=== PATIENT | female | born 1950 | race Caucasian/White ===

== ENCOUNTER 2017-12-02 16:40 | Observation (INO) | payer MEDICARE ==
[~2017-12-02] VITALS: Ht 162.6 cm; Wt 73.5 kg
--- NOTE | 2017-12-02 18:36 | Diagnostic Imaging Report ---
PROCEDURE: A single AP view of the chest. COMPARISON: None available. INDICATIONS: CHEST PAIN FINDINGS: Lines/tubes: Cardiac monitoring device overlying cardiac shadow. Lungs: The lungs are well inflated and clear. There is no evidence of pneumonia or pulmonary edema. Pleura: There is no pleural effusion or pneumothorax. Heart and mediastinum: The cardiac silhouette is enlarged. Bones: No acute bony abnormality. Partial seen cervical fusion hardware. IMPRESSION: No acute cardiopulmonary disease. Enlarged cardiac silhouette. Dictated by: Mamadou Wan M.D. on 12/02/2017 at 18:42 Electronically approved by: Mamadou Wan M.D. on 12/02/2017 at 18:42
[2017-12-02 18:39] LABS: BILIRUBIN,URINE NEGATIVE (NEGATIVE); CLARITY,URINE SL CLOUDY (CLEAR); COLOR,URINE YELLOW (YELLOW); KETONES,URINE NEGATIVE (NEGATIVE); LEUKOCYTE ESTERASE ,URINE 1+ (NEGATIVE); NITRITE,URINE NEGATIVE (NEGATIVE); PROTEIN,URINE DIPSTICK NEGATIVE (NEGATIVE); URINE UROBILINOGEN 0.2 mg/dL (0.2 - 1)
[2017-12-02 18:47] LABS: BACTERIA,URINE MANY /HPF; EPITHELIAL CELLS,URINE MODERATE /LPF; MUCUS,URINE FEW (RARE); RBC,URINE 0-5 /HPF (0-5)
[2017-12-02 19:09] LABS: BASOPHILS # (AUTO) 0.1 (0.0-0.1); BASOPHILS % 0.6 % (0.0-1.0); EOSINOPHILS # (AUTO) 0.2 (0.0-0.4); EOSINOPHILS % 1.4 % (0.0-6.0); HEMATOCRIT 31.3 % (34.2-44.1); HEMOGLOBIN 9.8 g/dL (12.0-16.0); LYMPHOCYTES # (AUTO) 3.1 (1.0-3.2); LYMPHOCYTES % 24.9 % (18.0-39.1); MEAN CORPUSCULAR HEMOGLOBIN 27.1 pg (28-32); MEAN CORPUSCULAR HGB CONC 31.3 g/dL (31-35); MEAN CORPUSCULAR VOLUME 86.5 fL (81-99); MONOCYTES % 8.5 % (4.4-11.3); NEUTROPHILS # (AUTO) 7.9 (2.1-6.9); NEUTROPHILS % 64.2 % (38.7-80.0); PLATELET COUNT 307 x10e3/uL (140-360); RED BLOOD COUNT 3.62 x10e6/uL (3.6-5.1); RED CELL DISTRIBUTION WIDTH 17.4 % (11.7-14.4)
[2017-12-02 19:19] LABS: INR 2.38; PROTHROMBIN TIME 24.4 seconds (11.9-14.5)
[2017-12-02 19:20] LABS: PARTIAL THROMBOPLASTIN TIME 42.3 seconds (23.8-35.5)
[2017-12-02 19:28] LABS: ALANINE AMINOTRANSFERASE 16 IU/L (0-55); ALBUMIN 3.3 g/dL (3.5-5.0); ALBUMIN/GLOBULIN RATIO 0.9 (0.8-2.0); ALKALINE PHOSPHATASE 119 IU/L (40-150); ANION GAP 14.6 mmol/L (8-16); BLOOD UREA NITROGEN 10 mg/dL (7-26); BUN/CREATININE RATIO 13 (6-25); CALCIUM 8.9 mg/dL (8.4-10.2); CARBON DIOXIDE 26 mmol/L (22-29); CHLORIDE 100 mmol/L (98-107); CREATINE KINASE 54 IU/L (29-168); CREATININE, SERUM 0.78 mg/dL (0.57-1.11); EST GLOMERULAR FILTRATION RATE > 60 ML/MIN (60-); GLUCOSE 83 mg/dL (74-118); POTASSIUM 3.6 mmol/L (3.5-5.1); SODIUM 137 mmol/L (136-145)
[2017-12-02] MEDS ORDERED: ZOLPIDEM TARTRA10 MG PO (20:45)
[2017-12-02] MEDS ORDERED: AMLODIPINE BESYL5 MG PO (20:45)
[2017-12-02] MEDS ORDERED: XARELTO20 MG PO (20:45)
[2017-12-02] MEDS ORDERED: CITALOPRAM HBR20 MG PO (20:45)
[2017-12-02] MEDS ORDERED: POTASSIUM CHLOR8 ME1 PO (20:45)
[2017-12-02] MEDS ORDERED: BUPROPION XL150 MG PO (20:45)
[2017-12-02] MEDS ORDERED: DIGOXIN250 MCG PO (20:45)
[2017-12-02] MEDS ORDERED: TIZANIDINE HCL4 MG PO (20:45)
[2017-12-02] MEDS ORDERED: ONDANSETRON HCL INJ 2 MG/ML VIAL IV PRN (21:30)
[2017-12-02] MEDS ORDERED: SODIUM CHLORIDE 0.9% 1000ML 1,000 ML IV SCH (21:30)
[2017-12-02] MEDS ORDERED: SODIUM CHLORIDE FLUSH 10 ML SYR INJ PRN (21:30)
[2017-12-02] MEDS ORDERED: LORAZEPAM 1 MG TAB PO STA (21:39)
[2017-12-02] MEDS ORDERED: LORAZEPAM 1 MG TAB ONE (21:40)
[2017-12-02] MEDS ORDERED: ZOLPIDEM TARTRATE 10 MG TAB PO PRN (22:15)
[2017-12-02] MEDS ORDERED: PRAMIPEXOLE DI1.5 MG PO (23:07)
[2017-12-02] MEDS ORDERED: PRAMIPEXOLE DIHYDROCHLORIDE 1 MG TAB PO ONE ×2 (23:24→23:30)
[2017-12-02] MEDS ORDERED: TIZANIDINE HCL 4 MG TAB ONE (23:25)
[2017-12-02] MEDS ORDERED: TIZANIDINE HCL 4 MG TAB PO STA (23:31)
[2017-12-02] MEDS: FAMOTIDINE 20 MG/2 ML VIAL IV SCH (23:48)
[2017-12-03] VITALS (9 sets, daily range): BP systolic 121–137; BP diastolic 58–87
[2017-12-03 03:59] LABS: BASOPHILS # (AUTO) 0.1 (0.0-0.1); BASOPHILS % 0.6 % (0.0-1.0); EOSINOPHILS # (AUTO) 0.2 (0.0-0.4); HEMATOCRIT 28.7 % (34.2-44.1); LYMPHOCYTES # (AUTO) 2.9 (1.0-3.2); LYMPHOCYTES % 27.2 % (18.0-39.1); MEAN CORPUSCULAR HGB CONC 31.4 g/dL (31-35); MEAN CORPUSCULAR VOLUME 86.2 fL (81-99); MONOCYTES # (AUTO) 0.9 (0.2-0.8); NEUTROPHILS # (AUTO) 6.5 (2.1-6.9); NEUTROPHILS % 61.8 % (38.7-80.0); PLATELET COUNT 257 x10e3/uL (140-360); RED BLOOD COUNT 3.33 x10e6/uL (3.6-5.1); RED CELL DISTRIBUTION WIDTH 17.3 % (11.7-14.4)
[2017-12-03 04:19] LABS: INR 1.92; PROTHROMBIN TIME 20.6 seconds (11.9-14.5)
[2017-12-03 04:20] LABS: PARTIAL THROMBOPLASTIN TIME 42.3 seconds (23.8-35.5)
[2017-12-03 04:27] LABS: BLOOD UREA NITROGEN 10 mg/dL (7-26); BUN/CREATININE RATIO 14 (6-25); CALCIUM 8.7 mg/dL (8.4-10.2); CARBON DIOXIDE 28 mmol/L (22-29); CHLORIDE 102 mmol/L (98-107); CHOL/HDL RATIO 3.5 (3.0-3.6); CHOLESTEROL 153 MD/DL (0-199); CREATININE, SERUM 0.74 mg/dL (0.57-1.11); EST GLOMERULAR FILTRATION RATE > 60 ML/MIN (60-); GLUCOSE 120 mg/dL (74-118); HDL CHOLESTEROL 44 MG/DL (40-60); LDL CHOLESTEROL 88 MG/DL (60-130); SODIUM 140 mmol/L (136-145); TRIGLYCERIDES 105 MG/DL (0-149)
[2017-12-03 04:29] LABS: CREATINE KINASE 39 IU/L (29-168)
[2017-12-03] MEDS ORDERED: AMLODIPINE BESYLATE 5 MG TAB PO SCH (09:00)
[2017-12-03] MEDS ORDERED: POTASSIUM CHLORIDE 10MEQ EA PO SCH (09:00)
[2017-12-03] MEDS ORDERED: BUPROPION HCL 150 MG TABCR PO SCH (09:00)
[2017-12-03] MEDS: PRAMIPEXOLE DIHYDROCHLORIDE 1 MG TAB PO SCH ×3 (09:00→21:19)
[2017-12-03] MEDS ORDERED: DIGOXIN 0.25 MG TAB PO SCH (09:00)
[2017-12-03] MEDS ORDERED: NON-FORMULARY MEDICATION (Potassium Chloride 1 TAB) PO SCH (09:00)
[2017-12-03] MEDS ORDERED: CITALOPRAM HYDROBROMIDE 20 MG TAB PO SCH (09:00)
[2017-12-03] MEDS ORDERED: POTASSIUM CHLORIDE 20MEQ/100ML 100 ML ONE (09:02)
[2017-12-03] MEDS ORDERED: POTASSIUM CHLORIDE 20 MEQ TAB CR PO ONE (09:05)
[2017-12-03] MEDS ORDERED: POTASSIUM CHLORIDE 20 MEQ TAB CR PO STA (09:13)
[2017-12-03] MEDS ORDERED: POTASSIUM CHLORIDE 20MEQ/100ML 100 ML IV ONE (09:15)
--- NOTE | 2017-12-03 09:28 | History and Physical ---
CHIEF COMPLAINT: Chest pain. HISTORY OF PRESENT ILLNESS: This is a 67-year-old white woman who presented to [facility] Emergency Room with a 1-day history of worsening, nonradiating, left-sided chest pain. The patient also states over the last couple of weeks she has been experiencing worsening generalized weakness as well as extensive tiredness. The patient states she also drops things inadvertently. She is also concerned because her heart rate has been low. In the emergency room, the patient was found to have findings consistent with sick sinus syndrome. The patient has been persistently bradycardic. The patient has a history of atrial fibrillation. In fact, she has undergone atrial ablation twice previously. The patient currently voices no chest pain at this time. Serial cardiac enzymes performed in the emergency room are not consistent with acute myocardial ischemia or infarction. Chest x-ray done in the emergency room revealed enlarged cardiac silhouette, otherwise unremarkable. EKG reveals sinus bradycardia. No acute ischemic changes are appreciated on the EKG. REVIEW OF SYSTEMS GENERAL: The patient states she has lost weight lately unintentionally, but she cannot quantify. No fever or chills. The patient states she does get confused easily. HEENT: No headache. No vision changes. CARDIOVASCULAR: Subjective chest pain as per HPI. Denies any shortness of breath. GI: No nausea, vomiting, diarrhea or constipation. : Denies UTI symptoms. NEUROMUSCULAR: Patient states she has had at least 3 falls in the last year that have resulted in head injuries. PAST MEDICAL HISTORY 1. Atrial fibrillation. 2. Hypertensive heart disease. 3. Therapeutic brain injury, likely. 4. Chronic diastolic congestive heart failure. 5. Restless legs syndrome. 6. Depression. ALLERGIES: NO KNOWN DRUG ALLERGIES. SURGICAL HISTORY 1. Cervical spine surgery. 2. Lumbar spine surgery. 3. Atrial ablation twice. 4. Right ankle open reduction and internal fixation. 5. Cataract surgery. 6. Right-sided benign ovarian tumor resection. 7. Hysterectomy. SOCIAL HISTORY: This woman is a . She lives alone. She is unemployed. No history of tobacco use. She drinks alcohol occasionally. FAMILY HISTORY: Her mother had electrical cardioversion. MEDICATIONS 1. Amlodipine 5 mg daily. 2. Bupropion 150 mg b.i.d. 3. Citalopram 20 mg daily. 4. Digoxin 250 mcg daily. 5. Potassium chloride 8 mEq daily. 6. Pramipexole 1.5 mg t.i.d. 7. Xarelto 20 mg daily. 8. Tizanidine 8 mg each bedtime. 9. Zolpidem 20 mg each bedtime. PHYSICAL EXAMINATION GENERAL: She is awake, alert and fully oriented. She seems to get confused easily. She answers questions slowly. Does not appear to be in any obvious distress. She is very pleasant and cooperative with exam. VITAL SIGNS: Height 5 feet 4 inches, weight 160 pounds, BMI 27. Blood pressure at this time is 120/60. Heart rate is 54. Respiratory rate is 18. Oxygen saturation is 95% on room air. Temperature is 97.9. INTEGUMENT: Skin is warm and dry. No pallor, jaundice or diaphoresis. HEENT: Anicteric sclerae with moist mucous membranes. NECK: Supple. No evidence of jugular venous distention. CARDIOVASCULAR: Bradycardic heart rate. Regular rhythm. The patient has a systolic ejection murmur and S3 gallop. LUNGS: No rales, no rhonchi, no wheezing. ABDOMEN: Obese, benign. EXTREMITIES: No edema or deformity. NEUROLOGIC: Intact. DIAGNOSES 1. Sick sinus syndrome. 2. Bradycardia. 3. History of atrial fibrillation. 4. Hypertensive heart disease. 5. Chronic diastolic congestive heart failure. 6. Traumatic brain injury, likely. PLAN 1. Will consider stopping long-term anticoagulation with cardiology since the patient is extremely high fall risk. 2. Agree with electrophysiology and cardiology evaluation since this patient would likely benefit from a permanent pacemaker placement due to her sick sinus syndrome. 3. Order 2-D echocardiogram. 4. Will replete the patient's potassium level. 5. Follow electrolytes. 6. Stop intravenous fluids. I spent an hour in the care of this patient. Job#: [id number]
[2017-12-03] MEDS: FAMOTIDINE 20 MG/2 ML VIAL IV SCH ×2 (09:30→17:17)
[2017-12-03] MEDS ORDERED: MIDAZOLAM HCL 2 MG/2 ML VIAL ONE ×3 (10:04→11:17)
[2017-12-03] MEDS ORDERED: SODIUM CHLORIDE 0.9% 1000ML 2,000 ML ONE (10:05)
[2017-12-03] MEDS ORDERED: FENTANYL CITRATE/PF 100MCG/2 ML INJ ONE ×2 (10:05→10:33)
[2017-12-03] MEDS ORDERED: BACITRACIN 50,000 UNIT VIAL ONE (10:05)
[2017-12-03] MEDS ORDERED: LIDOCAINE HCL 2% LOCAL 20 ML VIAL ONE (10:05)
[2017-12-03] MEDS ORDERED: SODIUM CHLORIDE 0.9% 500ML 500 ML ONE (10:05)
[2017-12-03] MEDS ORDERED: VANCOMYCIN 1GM/NS 250 ML 250 ML ONE (10:12)
[2017-12-03] MEDS: MORPHINE SULFATE 2 MG/ML SYR IV PRN (15:30)
--- NOTE | 2017-12-03 15:36 | Diagnostic Imaging Report ---
PROCEDURE: A single AP view of the chest. COMPARISON: Patients [facility], , CHEST SINGLE (NOT PORTABLE), 12/02/2017, 18:05. INDICATIONS: POST PACEMAKER FINDINGS: See impression. IMPRESSION: 1. interval placement of left upper chest dual-lead cardiac device with lead distal tips projecting in the right atrium and right ventricle. 2. Stable enlargement of the cardiac silhouette. Interval development of central pulmonary venous congestion and bilateral perihilar interstitial edema. No effusion or consolidation. 3. No acute bony abnormalities. Renard Sterling M.D. Dictated by: Renard Sterling M.D. on 12/03/2017 at 15:41 Electronically approved by: Renard Sterling M.D. on 12/03/2017 at 15:41
[2017-12-03] MEDS ORDERED: KETOROLAC TROMETHAMINE 30 MG/ML VIAL IV NR (16:45)
[2017-12-03] MEDS: HYDROMORPHONE 1MG/1ML INJ IV PRN (16:54)
[2017-12-03] MEDS ORDERED: ONDANSETRON HCL INJ 2 MG/ML VIAL IV PRN (17:00)
[2017-12-03] MEDS ORDERED: SODIUM CHLORIDE FLUSH 10 ML SYR INJ PRN (17:00)
[2017-12-03] MEDS ORDERED: ZOLPIDEM TARTRATE 10 MG TAB PO PRN (17:00)
[2017-12-03] MEDS: BUPROPION HCL 150 MG TABCR PO SCH (17:17)
--- NOTE | 2017-12-03 20:26 | Consultation ---
DATE OF CONSULTATION: December 03, 2017 CARDIOLOGY CONSULTATION REASON FOR CONSULTATION: Sick sinus syndrome, bradycardia. CHIEF COMPLAINT: I have been feeling dizzy and weak, and they told me to come in for a pacemaker. HISTORY OF PRESENT ILLNESS: Patient is a 67-year-old female with a history of atrial fibrillation on anticoagulation and sick sinus syndrome with sinus pauses and bradycardia when she is not in atrial fibrillation who presents to the ER with weakness and bradycardia and underwent permanent pacemaker placement by Dr. Grimm earlier today without any complications. REVIEW OF SYSTEMS: As above, otherwise negative. PAST MEDICAL HISTORY: 1. Paroxysmal atrial fibrillation. 2. Sick sinus syndrome. 3. Hypertension. 4. Chronic diastolic congestive heart failure. 5. Restless leg syndrome. 6. Depression. 7. History of traumatic brain injury. ALLERGIES: NO KNOWN DRUG ALLERGIES. SOCIAL HISTORY: No tobacco, alcohol or drug use. FAMILY HISTORY: History of cardioversion in mother. No family history of early CAD or sudden cardiac . Outpatient and inpatient medications were reviewed. LABORATORY DATA: Reviewed. IMAGING DATA: Reviewed. PHYSICAL EXAMINATION: VITALS: Temperature 98.4, pulse 60, respiratory rate 17, blood pressure 135/87, satting 94% on room air. EYES: Conjunctivae are clear. EARS, NOSE, MOUTH AND THROAT: Normal mucosa, no pallor or bleeding. NECK: No jugular venous distention. MSK: Normal muscle tone and strength. No atrophy. EXTREMITIES: No clubbing or cyanosis. SKIN: Some mild bruising at places, otherwise no venostasis changes or ulcers. GENERAL: Well-developed, elderly female. CARDIOVASCULAR: PMI nondisplaced. Regular S1 S2. No murmurs, rubs or gallops. Palpable carotid pulses, palpable radial pulses, palpable pedal pulses. RESPIRATORY: No respiratory distress. Clear to auscultation bilaterally. ABDOMEN: Soft, nontender nondistended. No masses. NEURO AND PSYCH: Alert and oriented to person, place and time. Normal affect. ASSESSMENT 1. Paroxysmal atrial fibrillation, status post ablation x2. 2. Sick sinus syndrome. 3. Symptomatic bradycardia. 4. Status post dual-chamber pacemaker placement on 12/03/2017. PLAN: Usual post pacemaker care. The patient okay to be discharged tomorrow if device interrogation shows normal function and no complications of device placement. Will resume her anticoagulation for now. Will have a discussion with patient regarding possibly being referred for Watchman device given her propensity to fall though the only major traumatic fall she has had in the past was due to falling off a ladder from missing a step and not during her every day life. This was over five years ago before she was on anticoagulation. Thank you for this consult. Will continue to follow. Job#: [id number] ANDREY
[2017-12-03] MEDS ORDERED: TIZANIDINE HCL 4 MG TAB PO SCH ×2 (21:00)
--- NOTE | 2017-12-04 00:24 | Consultation ---
DATE OF CONSULTATION: December 03, 2017 REASON FOR CONSULTATION: Bradycardia. HISTORY OF PRESENT ILLNESS: This is a 67-year-old woman with history of atrial fibrillation, status post ablation procedure, history of dizziness. She had a loop recorder that was implanted to monitor her heart rate which demonstrates episodes of atrial fibrillation with rapid ventricular response, intermittently with episodes of bradycardia, heart rate in the 40s. She has been feeling very weak lately and the heart rate has been in the 40s. She was at the cardiology office and was sent to the ER for consideration of a pacemaker. The patient denies taking any AV node blocking agents. At this time, she is taking Xarelto. The last dose was 48 hours ago. No syncope, no cardiac arrest, no chest pain. REVIEW OF SYSTEMS: CONSTITUTIONAL: Negative. CARDIOVASCULAR: As per HPI, otherwise negative. RESPIRATORY: Negative. GASTROINTESTINAL: Negative. GENITOURINARY: Negative. MUSCULOSKELETAL: Negative. EYES: Negative. ENT: Negative. ALLERGY/IMMUNOLOGY: Negative. PSYCHIATRIC: Negative. PAST MEDICAL HISTORY: Hypertension, atrial fibrillation. SURGICAL HISTORY: Ablation procedures. SOCIAL HISTORY: No smoking, alcohol or illicit drugs. FAMILY HISTORY: No premature coronary artery disease. PHYSICAL EXAMINATION: VITAL SIGNS: Blood pressure 126/60, pulse 48, respirations 20, O2 sat 98%. GENERAL: In no acute distress. HEENT: Moist mucous membranes. CARDIOVASCULAR: Regular. RESPIRATORY: Clear. ABDOMEN: Soft, nontender. MUSCULOSKELETAL: 2+ distal pulses. NEUROLOGICAL: No focal deficit. SKIN: No lesions. PSYCHIATRIC: Normal thought process. EKG: Sinus bradycardia. Interrogation of her loop recorder demonstrates episodes of bradycardia, heart rate in the 40s and episodes of atrial fibrillation with rapid ventricular response that could relate with dizziness. IMPRESSION: 1. Sick sinus syndrome, the patient with symptomatic bradycardia and also episodes of atrial fibrillation with rapid ventricular response. No reversible causes. Unable to treat medically. 2. Loop recorder in place. RECOMMENDATIONS: I had a discussion with the patient. She has indication for pacing. Procedure was explained in detail with benefits and risks. The patient voices understanding and wishes to proceed. Will plan for a dual chamber pacemaker placement and removal of the loop recorder. Thank you for letting us participate [facility]. Job#: [id number]
--- NOTE | 2017-12-04 00:44 | Operative Report ---
DATE OF PROCEDURE: December 03, 2017 PREPROCEDURE DIAGNOSES 1. Sick sinus syndrome. 2. Symptomatic bradycardia with dizziness and bradycardia, heart rate in the 40s. 3. Paroxysmal atrial fibrillation. POSTPROCEDURE DIAGNOSES 1. Sick sinus syndrome. 2. Symptomatic bradycardia with dizziness and bradycardia, heart rate in the 40s. 3. Paroxysmal atrial fibrillation. PROCEDURES PERFORMED 1. Dual-chamber pacemaker placement. 2. Removal of a loop recorder. 3. Moderate sedation. Moderate conscious sedation was provided under my direct supervision by sedation-trained nurse. Sedation approximate time 30 minutes, Versed and fentanyl. There were no complications. See sedation form for details. ESTIMATED BLOOD LOSS: 5 mL. COMPLICATIONS: None. DESCRIPTION OF PROCEDURE: After informed consent was obtained, patient was brought to the electrophysiology laboratory in a fasting, nonsedated state. Area over her chest was prepped and draped in the usual sterile fashion. Moderate sedation and prophylactic antibiotic were given. Lidocaine 1% was used as local anesthetic, and a 3-cm skin incision was made in the left subclavicular area. Electrocautery, sharp and blunt dissection were used to reach the muscular fascia and a pocket was created for eventual implantation of the device. Vascular access was obtained times 2 in the left axillary vein using modified Seldinger technique under fluoroscopic and ultrasound guidance. Two 6-Belarusian sheaths were placed. The ventricular lead advanced to the RV apex. R-wave 5, pacing 0.5 at 0.5, impedance 684. The atrial lead to the right atrial appendage. P-wave 2.9, pacing 0.7 at 0.5, impedance 742. The sheaths were removed from the body. The leads were secured to fascia using 0 silk. Pocket was irrigated with antibiotic solution using a pulse plastic sewer. Hemostasis was meticulous. Leads were connected to the device. The entire pacemaker system placed in the pocket. Incision was closed using Vicryl and Dermabond. Patient tolerated the procedure well. Procedure was deemed complete. SUMMARY OF HARDWARE IMPLANTED 1. The new pacemaker is [employer], model #L311, [id number]. 2. The right atrial is [employer] 7740, [id number]. 3. The ventricular lead is [employer] 7741, [id number]. We then proceeded with removing the loop recorder. The area was prepped and draped in usual sterile fashion. Lidocaine was used. A 1-cm skin incision was made and the loop recorder was removed from the body using hemostat. The incision was closed using Vicryl and Dermabond. Patient tolerated the procedure well. Procedure was deemed complete. IMPRESSIONS 1. Successful dual-chamber pacemaker implant via left axillary vein. 2. Successful removal of the loop recorder. PLAN 1. Routine postop monitoring in telemetry bed. 2. Chest x-ray. 3. Follow up in 2 weeks. Job#: [id number]
[2017-12-04 00:50] VITALS: BP 122/60
[2017-12-04] MEDS: FAMOTIDINE 20 MG/2 ML VIAL IV SCH (05:00)
[2017-12-04 05:06] VITALS: BP 98/57
[2017-12-04 07:00] VITALS: BP 143/65
[2017-12-04 08:12] LABS: BASOPHILS % 0.3 % (0.0-1.0); EOSINOPHILS # (AUTO) 0.2 (0.0-0.4); EOSINOPHILS % 1.5 % (0.0-6.0); HEMATOCRIT 28.9 % (34.2-44.1); HEMOGLOBIN 9.2 g/dL (12.0-16.0); LYMPHOCYTES # (AUTO) 2.3 (1.0-3.2); LYMPHOCYTES % 20.2 % (18.0-39.1); MEAN CORPUSCULAR HEMOGLOBIN 27.2 pg (28-32); MEAN CORPUSCULAR HGB CONC 31.8 g/dL (31-35); MEAN CORPUSCULAR VOLUME 85.5 fL (81-99); MONOCYTES # (AUTO) 0.8 (0.2-0.8); MONOCYTES % 6.9 % (4.4-11.3); NEUTROPHILS # (AUTO) 8.2 (2.1-6.9); NEUTROPHILS % 70.8 % (38.7-80.0); PLATELET COUNT 258 x10e3/uL (140-360); RED BLOOD COUNT 3.38 x10e6/uL (3.6-5.1); RED CELL DISTRIBUTION WIDTH 17.7 % (11.7-14.4)
[2017-12-04] MEDS: BUPROPION HCL 150 MG TABCR PO SCH (08:23)
[2017-12-04 08:29] LABS: BLOOD UREA NITROGEN 14 mg/dL (7-26); BUN/CREATININE RATIO 18 (6-25); CALCIUM 8.7 mg/dL (8.4-10.2); CARBON DIOXIDE 24 mmol/L (22-29); CHLORIDE 106 mmol/L (98-107); EST GLOMERULAR FILTRATION RATE > 60 ML/MIN (60-); GLUCOSE 88 mg/dL (74-118); SODIUM 138 mmol/L (136-145)
[2017-12-04] MEDS: PRAMIPEXOLE DIHYDROCHLORIDE 1 MG TAB PO SCH (08:33)
[2017-12-04] MEDS: MORPHINE SULFATE 2 MG/ML SYR IV PRN (08:33)
[2017-12-04 08:37] VITALS: BP 143/65
[2017-12-04] MEDS ORDERED: DIGOXIN 0.25 MG TAB PO SCH (09:00)
[2017-12-04] MEDS ORDERED: POTASSIUM CHLORIDE 10MEQ EA PO SCH (09:00)
[2017-12-04] MEDS ORDERED: CITALOPRAM HYDROBROMIDE 20 MG TAB PO SCH (09:00)
[2017-12-04] MEDS ORDERED: AMLODIPINE BESYLATE 5 MG TAB PO SCH (09:00)
[2017-12-04] MEDS: HYDROMORPHONE 1MG/1ML INJ IV PRN (10:23)
--- NOTE | 2017-12-04 11:11 | Progress Note ---
DATE: December 04, 2017 CARDIOLOGY PROGRESS NOTE SUBJECTIVE: No major events overnight. Has some soreness over the pacemaker site. Had normal interrogation today. Otherwise, no significant complaints. REVIEW OF SYSTEMS: As above, otherwise negative. OBJECTIVE VITAL SIGNS: Temperature 97.9, pulse 68, respiratory rate 17, blood pressure 143/65, satting 98% on room air. GENERAL: Well-developed white female. CARDIOVASCULAR: Regular rate and rhythm. No murmurs, rubs or gallops. Palpable carotid pulses. Palpable radial pulses. Palpable pedal pulses. RESPIRATORY: No respiratory distress. Lungs are clear to auscultation bilaterally. ABDOMEN: Soft, nontender nondistended. No masses. NEURO AND PSYCH: Alert and oriented to person, place and time. Normal affect. ASSESSMENT 1. Paroxysmal atrial fibrillation, status post ablation x2. 2. Sick sinus syndrome, status post dual-chamber permanent pacemaker on 12/03/2017. 3. Symptomatic bradycardia. 4. Presyncope and history of falls. PLAN: Continue usual postpacemaker care. Follow up with Dr. Grimm in clinic in 2 weeks. Minocycline 100 mg q.12 h. for 7 days. Follow up with us in clinic in the next 4 weeks. Continue her previous cardiovascular medications including Xarelto. Thank you for this consult. Job#: [id number]
[2017-12-04 12:31] VITALS: BP 137/65
[2017-12-04] MEDS ORDERED: FAMOTIDINE 20 MG TAB PO SCH (16:30)
--- NOTE | 2017-12-11 10:36 | Discharge Summary ---
ADMIT DIAGNOSES 1. Sick sinus syndrome. 2. Bradycardia. 3. History of atrial fibrillation. 4. Hypertensive heart disease. 5. Chronic diastolic congestive heart failure. 6. Traumatic brain injury, likely. DISCHARGE DIAGNOSES 1. Status post dual chamber pacemaker placement. 2. Status post removal of loop recorder. 3. Paroxysmal atrial fibrillation. 4. Diastolic heart failure. 5. Presyncope and history of falls. HOSPITAL COURSE: This is a 67-year-old white woman who was admitted to [facility] with the diagnosis of presyncope symptoms with a history of recurrent falls. The patient also has a history of paroxysmal atrial fibrillation. During this hospitalization, the patient was found to have symptomatic bradycardia with heart rate in the 40s. She was also diagnosed with sick sinus syndrome. The patient was seen by cardiology, namely Dr. Claude Cortés. During this hospitalization, she was also seen by an electrophysiology cardiology, namely Dr. Grimm, who successfully placed a dual chamber pacemaker and removed her loop recorder. Her loop recorder had detected heart rates as low as 38 beats per minute. As previously stated, the patient had repeated falls due to presyncope likely secondary to the bradycardia. The patient tolerated the procedure quite well. Her condition on discharge was stable. DISCHARGE MEDICATIONS 1. Minocycline 500 mg p.o. b.i.d. for 7 days. 2. Amlodipine 5 mg a day. 3. Bupropion 150 mg b.i.d. 4. Citalopram 20 mg daily. 5. Digoxin 250 mcg daily. 6. Potassium chloride 8 mEq daily. 7. Pramipexole 1.5 mg t.i.d. 8. Xarelto 20 mg daily. 9. Tizanidine 8 mg at bedtime. 10. Zolpidem 20 mg at bedtime. FOLLOWUP INSTRUCTIONS: The patient was instructed to follow up with Dr. Claude Cortés within 1 week. The patient was instructed to follow up with her primary care physician, namely Dr. Zen Galvez, in 2-3 weeks. The patient was also instructed to follow up with Dr. Grimm within the next 1-2 weeks. JACKY KINSEY MD Job#: [id number] RI cc:Lencho MACK MD
--- OUTSIDE RECORDS SUMMARY | 2018-01-29 23:56 | XMS REPORT ---
[facility] Address Unknown Phone Unavailable Care Team Providers Care Research Worker Kitchen Name Role Phone ANTONI NEWSOME Unavailable Unavailable Payers Payer Name Policy Type Policy Number Effective Date Expiration Date Problems This patient has no known problems. Allergies, Adverse Reactions, Alerts Allergy Name Allergy Type Status Severity Reaction(s) Onset Date Inactive Date Treating Clinician Comments No Known Allergies DA Active U 2017-11-21 00:00:00 Medications This patient has no known medications. Results Test Description Test Time Test Comments Text Results Atomic Results Result Comments CHEST SINGLE (PORTABLE) 2017-12-03 15:41:00 [place] [address] Patient Name: VIOLETA DORAN MR #: [id number] : 1950 Age/Sex: 67/F Req #: [id number] Adm Physician: ANTONI NEWSOME MD Ordered by: JACKY KINSEY MD Report #: [id number] Location: [facility] Room/Bed: [place] [address] Procedure: [id number] DX/CHEST SINGLE ( PORTABLE) Exam Date: 12/03/17 Exam Time: 1320 REPORT STATUS: Signed PROCEDURE: A single AP view of the chest. COMPARISON: [facility], DX, CHEST SINGLE (NOT PORTABLE), 2017, 18:05. INDICATIONS: POST PACEMAKER FINDINGS: See impression. IMPRESSION: 1. interval placement of left upper chest dual-lead cardiac device with lead distal tips projecting in the right atrium and right ventricle. 2. Stable enlargement of the cardiac silhouette. Interval development of central pulmonary venous congestion and bilateral perihilar interstitial edema. No effusion or consolidation. 3. No acute bony abnormalities. Gabriel Sterling M.D. Dictated by: Gabriel Sterling M.D. on 12/03/2017 at 15:41 Electronically approved by: Gabriel Sterling M.D. on 12/03/2017 at 15:41 Dictated By: GABRIEL STERLING MD 154 Transcribed By: GRACE on 12/03/17 154 COPY TO: JACKY KINSEY MD CHEST SINGLE (NOT PORTABLE) 2017-12-02 18:42:00 [place] [address] Patient Name: VIOLETA DORAN MR #: [id number] : 1950 Age/Sex: 67/F Req #: [id number] Adm Physician: Ordered by: EMERALD ARREDONDO MD Report #: [id number] Location: ER Room/Bed: Procedure: [id number] DX/CHEST SINGLE (NOT PORTABLE) Exam Date: 12/02/17 Exam Time: 1805 REPORT STATUS: Signed PROCEDURE: A single AP view of the chest. COMPARISON: None available. INDICATIONS: CHEST PAIN FINDINGS: Lines/tubes: Cardiac monitoring device overlying cardiac shadow. Lungs: The lungs are well inflated and clear. There is no evidence of pneumonia or pulmonary edema. Pleura: There is no pleural effusion or pneumothorax. Heart and mediastinum: The cardiac silhouette is enlarged. Bones: No acute bony abnormality. Partial seen cervical fusion hardware. IMPRESSION: No acute cardiopulmonary disease. Enlarged cardiac silhouette. Dictated by: Mamadou Mike M.D. on 12/02/2017 at 18:42 Electronically approved by: Mamadou Mike M.D. on 12/02/2017 at 18:42 Dictated By: MAMADOU MIKE MD 41 COPY TO: EMERALD ARREDONDO MD
--- OUTSIDE RECORDS SUMMARY | 2018-01-30 00:02 | XMS REPORT | Continuity of Care Document ---
Author Author [facility] Organization [facility] Address [address] [place] [address] Phone Unavailable Care Team Providers Care Telex Operator Name Role Phone CHRIS FONTANA MD PCP Insurance Providers Guarantor Violeta Huff [address] [place] [address] Email [email or web address] Medicare Complete Policy Number [id number] Subscriber's Name Violeta Huff Relationship 18 Self / Same As Patient Group Number [id number] Effective Date 14 Advance Directives Directive Response Recorded Date/Time Does the patient have an advance directive? No 03/05/08 12:56pm If yes, is advance directive on file with [facility]? No 03/05/08 12:56pm If not on file with [facility] will patient provide a copy? No 06/16/12 9:51pm Do you have a Directive to Physician? No 12/02/17 8:48pm Do you have a Medical Power of Chin Strap Maker? No 12/02/17 8:48pm Do you have an out of hospital Do Not Resuscitate Order? No 12/02/17 8:48pm Do you have any special needs we should be aware of? No 12/02/17 8:48pm Do you have a support person here with you today? Yes 12/02/17 8:48pm Did patient receive Notice of Privacy Practices? Yes 12/02/17 8:48pm Did patient receive patient rights and responsibilities? Yes 12/02/17 8:48pm Problems Medical Problem Onset Date Status Bradycardia Unknown Chest pain Unknown Sick sinus syndrome Unknown Medications Current Home Medications Medication Dose Units Route Directions Days Qty Instructions Start Date Amlodipine Besylate 5 Mg Tablet 5 Mg Oral Daily 30 Bupropion Hcl (Bupropion Xl) 150 Mg Tab.er.24h 150 Mg Oral Twice A Day 180 Citalopram Hydrobromide (Citalopram Hbr) 20 Mg Tablet 20 Mg Oral Daily 30 Digoxin 250 Mcg Tablet 250 Mcg Oral Daily 30 Potassium Chloride 8 Meq Tablet.er 8 Meq Oral Daily 90 Pramipexole Di-Hcl (Pramipexole Dihydrochloride) 1.5 Mg Tablet 1.5 Mg Oral Three Times A Day 90 Rivaroxaban (Xarelto) 20 Mg Tablet 20 Mg Oral Daily Tizanidine Hcl 4 Mg Tablet 8 Mg Oral Bedtime 60 Zolpidem Tartrate 10 Mg Tablet 10 Tab Oral Bedtime as needed for Sleep 90 Social History Smoking Status Start Date Stop Date Never Smoker Hospital Discharge Instructions No hospital discharge instruction information available. Plan of Care Discharge Date 12/03/17 12:58pm Prescriptions See Medication Section Functional Status No functional status information available. Allergies, Adverse Reactions, Alerts Allergen Type Severity Reaction Status Last Updated No Known Drug Allergies Allergy Unknown Active 12/02/17 Immunizations No immunization information available. Vital Signs Acute Vital Signs Vital Response Date/Time Pulse Pulse Rate (adult) 60 bpm (60 - 90) 12/03/2017 12:37pm Respiratory Rate 16 bpm (12 - 24) 12/03/2017 12:37pm Blood Pressure 133/67 mm Hg 12/03/2017 12:37pm Height 5 ft 4 in 12/02/2017 5:21pm Weight 162 lb 12/02/2017 5:21pm Body Mass Index 27.8 kg/m^2 12/02/2017 5:21pm Results Laboratory Results Test Name Result Units Flags Reference Collection Date/Time Result Date/ Time Comments White Blood Count 10.56 x10e3/uL 4.8-10.8 12/03/2017 3:45am 12/03/2017 4:07am Red Blood Count 3.33 x10e6/uL L 3.6-5.1 12/03/2017 3:45am 12/03/2017 4: 07am Hemoglobin 9.0 g/dL L 12.0-16.0 12/03/2017 3:45am 12/03/2017 4:07am Hematocrit 28.7 % L 34.2-44.1 12/03/2017 3:45am 12/03/2017 4:07am Mean Corpuscular Volume 86.2 fL 81-99 12/03/2017 3:45am 12/03/2017 4: 07am Mean Corpuscular Hemoglobin 27.0 pg L 28-32 12/03/2017 3:45am 2017 4:07am Mean Corpuscular Hemoglobin Concent 31.4 g/dL 31-35 12/03/2017 3:45am 12/03/2017 4:07am Red Cell Distribution Width 17.3 % H 11.7-14.4 12/03/2017 3:45am 2017 4:07am Platelet Count 257 x10e3/uL 140-360 12/03/2017 3:45am 12/03/2017 4: 07am Neutrophils (%) (Auto) 61.8 % 38.7-80.0 12/03/2017 3:45am 12/03/2017 4: 07am Lymphocytes (%) (Auto) 27.2 % 18.0-39.1 12/03/2017 3:45am 12/03/2017 4: 07am Monocytes (%) (Auto) 8.0 % 4.4-11.3 12/03/2017 3:45am 12/03/2017 4: 07am Eosinophils (%) (Auto) 2.0 % 0.0-6.0 12/03/2017 3:45am 12/03/2017 4: 07am Basophils (%) (Auto) 0.6 % 0.0-1.0 12/03/2017 3:45am 12/03/2017 4:07am IM GRANULOCYTES % 0.4 % 0.0-1.0 12/03/2017 3:45am 12/03/2017 4:07am Neutrophils # (Auto) 6.5 2.1-6.9 12/03/2017 3:45am 12/03/2017 4:07am Lymphocytes # (Auto) 2.9 1.0-3.2 12/03/2017 3:45am 12/03/2017 4:07am Monocytes # (Auto) 0.9 H 0.2-0.8 12/03/2017 3:45am 12/03/2017 4:07am Eosinophils # (Auto) 0.2 0.0-0.4 12/03/2017 3:45am 12/03/2017 4:07am Basophils # (Auto) 0.1 0.0-0.1 12/03/2017 3:45am 12/03/2017 4:07am Absolute Immature Granulocyte (auto 0.04 x10e3/uL 0-0.1 12/03/2017 3: 45am 12/03/2017 4:07am Prothrombin Time 20.6 seconds H 11.9-14.5 12/03/2017 3:45am 12/03/2017 4 :37am Prothromb Time International Ratio 1.92 12/03/2017 3:45am 2017 4:37am Oral Anticoagulant Therapy INR Values: 1. Low Intensity Therapy 1.5 - 2.0 2. Moderate Intensity Therapy 2.0 - 3.0 3. High Intensity Therapy(1) 2.5 - 3.5 4. High Intensity Therapy(2) 3.0 - 4.0 5. Panic Value INR > 5.0 Activated Partial Thromboplast Time 42.3 seconds H 23.8-35.5 12/03/2017 3 :45am 12/03/2017 4:37am Urine Color YELLOW YELLOW 12/02/2017 5:32pm 12/02/2017 6:39pm Urine Clarity SL CLOUDY CLEAR 12/02/2017 5:32pm 12/02/2017 6:39pm Urine Specific Allons 1.020 1.010-1.025 12/02/2017 5:32pm 2017 6:39pm Urine pH 6 5 - 7 12/02/2017 5:32pm 12/02/2017 6:39pm Urine Leukocyte Esterase 1+ H NEGATIVE 12/02/2017 5:32pm 12/02/2017 6: 39pm Urine Nitrite NEGATIVE NEGATIVE 12/02/2017 5:32pm 12/02/2017 6:39pm Urine Protein NEGATIVE NEGATIVE 12/02/2017 5:32pm 12/02/2017 6:39pm Urine Glucose (UA) NEGATIVE NEGATIVE 12/02/2017 5:32pm 12/02/2017 6: 39pm Urine Ketones NEGATIVE NEGATIVE 12/02/2017 5:32pm 12/02/2017 6:39pm Urine Urobilinogen 0.2 mg/dL 0.2 - 1 12/02/2017 5:32pm 12/02/2017 6: 39pm Urine Bilirubin NEGATIVE NEGATIVE 12/02/2017 5:32pm 12/02/2017 6: 39pm Urine Blood NEGATIVE NEGATIVE 12/02/2017 5:32pm 12/02/2017 6:39pm Urine WBC 6-10 /HPF H 0-5 12/02/2017 5:32pm 12/02/2017 6:47pm Urine RBC 0-5 /HPF 0-5 12/02/2017 5:32pm 12/02/2017 6:47pm Urine Bacteria MANY /HPF H NONE 12/02/2017 5:32pm 12/02/2017 6:47pm Urine Epithelial Cells MODERATE /LPF NONE 12/02/2017 5:32pm 12/02/2017 6:47pm Urine Mucus FEW H RARE 12/02/2017 5:32pm 12/02/2017 6:47pm Sodium Level 140 mmol/L 136-145 12/03/2017 3:45am 12/03/2017 4:37am Potassium Level 3.0 mmol/L L 3.5-5.1 12/03/2017 3:45am 12/03/2017 4: 37am Chloride Level 102 mmol/L 98-107 12/03/2017 3:45am 12/03/2017 4:37am Carbon Dioxide Level 28 mmol/L 22-12/03/2017 3:45am 12/03/2017 4: 37am Anion Gap 13.0 mmol/L 8-16 12/03/2017 3:45am 12/03/2017 4:37am Blood Urea Nitrogen 10 mg/dL 11-2112/03/2017 3:45am 12/03/2017 4:37am Creatinine 0.74 mg/dL 0.57-1.11 12/03/2017 3:45am 12/03/2017 4:37am BUN/Creatinine Ratio 14 6-25 12/03/2017 3:45am 12/03/2017 4:37am Estimat Glomerular Filtration Rate > 60 ML/MIN 60- 12/03/2017 3:45am 4:37am Ranges were taken from the National Kidney Disease Education Program and the National Kid[employer] Foundation literature. Reference ranges: 60 or greater: Normal 16-59 (for 3 consecutive months): Chronic kidney disease 15 or less: Kidney failure Glucose Level 120 mg/dL H 74-118 12/03/2017 3:45am 12/03/2017 4:37am Calcium Level 8.7 mg/dL 8.4-10.2 12/03/2017 3:45am 12/03/2017 4:37am Total Bilirubin 0.4 mg/dL 0.2-1.2 12/02/2017 6:46pm 12/02/2017 7:29pm Aspartate Amino Transf (AST/SGOT) 26 IU/L 5-34 12/02/2017 6:46pm 2017 7:29pm Alanine Aminotransferase (ALT/SGPT) 16 IU/L 0-55 12/02/2017 6:46pm 09/2017 7:29pm Total Protein 6.8 g/dL 6.5-8.1 12/02/2017 6:46pm 12/02/2017 7:29pm Albumin 3.3 g/dL L 3.5-5.0 12/02/2017 6:46pm 12/02/2017 7:29pm Globulin 3.5 g/dL 2.3-3.5 12/02/2017 6:46pm 12/02/2017 7:29pm Albumin/Globulin Ratio 0.9 0.8-2.0 12/02/2017 6:46pm 12/02/2017 7: 29pm Alkaline Phosphatase 119 IU/L 40-150 12/02/2017 6:46pm 12/02/2017 7: 29pm Triglycerides Level 105 MG/DL 0-149 12/03/2017 3:45am 12/03/2017 4: 37am Cholesterol Level 153 MD/DL 0-199 12/03/2017 3:45am 12/03/2017 4:37am Less than 200 mg/dL Low Risk 201 - 239 mg/dL Borderline Risk 240 mg/dl and greater High Risk LDL Cholesterol 88 MG/DL 60-130 12/03/2017 3:45am 12/03/2017 4:37am HDL Cholesterol 44 MG/DL 40-60 12/03/2017 3:45am 12/03/2017 4:37am Cholesterol/HDL Ratio 3.5 3.0-3.6 12/03/2017 3:45am 12/03/2017 4: 37am B-Type Natriuretic Peptide 219.2 pg/mL H 0-100 12/02/2017 6:46pm 2017 7:31pm Creatine Kinase 39 IU/L 29-168 12/03/2017 3:45am 12/03/2017 4:37am Creatine Kinase MB 0.50 ng/mL 0-5.0 12/03/2017 3:45am 12/03/2017 4: 37am Troponin I < 0.001 ng/mL 0-0.300 12/03/2017 3:45am 12/03/2017 4:37am Thyroid Stimulating Hormone (TSH) 1.599 uIU/mL 0.350-4.940 12/03/2017 3: 35am 12/03/2017 9:39am Digoxin Level 1.06 ng/mL 0.8-2.0 12/02/2017 6:46pm 12/02/2017 10:32pm Procedures Procedure Status Date Provider(s) X-ray of chest, single view Active 12/02/17 EMERALD ARREDONDO MD Encounters Encounter Location Arrival/Admit Date Discharge/Depart Date Attending Provider Departed [facility] 12/03/17 10:02am 12:58pm ANTONI NEWSOME MD
[2018-04-24] MEDS ORDERED: METOPROLOL SUCC50 MG PO (13:57)
[2018-04-24] MEDS ORDERED: FUROSEMIDE40 MG PO (13:59)
[2018-04-24] MEDS ORDERED: ASPIR 8181 MG PO (14:00)
[2018-04-28] MEDS ORDERED: NORCO 7.5-3251 EACH PO (08:57)
== END 2017-12-04 14:35 | disposition home or self-care (01) ==
LOC: ER 16:40 → UNDOADMIN 21:35 → ERHOLD 21:35 → CATH LAB 12-03 10:02 → IMCU 12-03 13:20 → UNDOADMOB 12-03 13:37
PROVIDERS: ADMIT Internal Medicine Interventional Cardiology; ATTEND Internal Medicine Interventional Cardiology
DX: I49.5 Sick sinus syndrome (principal); R07.9 Chest pain, unspecified; I48.0 Paroxysmal atrial fibrillation; I11.0 Hypertensive heart disease with heart failure; I50.32 Chronic diastolic (congestive) heart failure; G25.81 Restless legs syndrome; Z87.820 Personal history of traumatic brain injury; Z79.01 Long term (current) use of anticoagulants; R55 Syncope and collapse; Z91.81 History of falling
CPT/HCPCS: 33208; 33284; C1785; C1898; 36415; 71045; 80048; 80053; 80061; 80162; 81001; 82550; 82553; 83880; 84443; 84484; 85025; 85610; 85730; 93005; 94760; 99284; G0378; J1170; J1885; J2001; J2250; J2270; J3370; J3480; J7030; J7040

== ENCOUNTER 2018-04-03 14:56 | Emergency (ER) | payer MEDICARE ==
[~2018-04-03] VITALS: Ht 162.6 cm; Wt 73.5 kg
[~2018-04-03 14:56] MED LIST: AMLODIPINE BESYL5 MG PO; BUPROPION XL150 MG PO; CITALOPRAM HBR20 MG PO; DIGOXIN250 MCG PO; POTASSIUM CHLOR8 ME1 PO; PRAMIPEXOLE DI1.5 MG PO; TIZANIDINE HCL4 MG PO; XARELTO20 MG PO; ZOLPIDEM TARTRA10 MG PO
--- OUTSIDE RECORDS SUMMARY | 2018-04-03 14:59 | XMS REPORT | Continuity of Care Document ---
Author Author [facility] Interface Address Unknown Phone Unavailable Problems Problem Status Onset Date Classification Date Reported Comments Source Bradycardia Active Problem 12/04/2017 [facility] Chest pain Active Problem 12/04/2017 [facility] Sick sinus syndrome Active Problem 12/04/2017 [facility] Medications Medication Details Route Status Patient Instructions Ordering Provider Order Date Source Amlodipine Besylate 5 Mg Tablet Daily Active [facility] Bupropion Hcl (Bupropion Xl) 150 Mg Tab.er.24h Twice A Day Active [facility] Citalopram Hydrobromide (Citalopram Hbr) 20 Mg Tablet Daily Active [facility] Digoxin 250 Mcg Tablet Daily Active [facility] Potassium Chloride 8 Meq Tablet.er Daily Active [facility] Pramipexole Di-Hcl (Pramipexole Dihydrochloride) 1.5 Mg Tablet Three Times A Day Active [facility] Rivaroxaban (Xarelto) 20 Mg Tablet Daily Active [facility] Tizanidine Hcl 4 Mg Tablet Bedtime Active [facility] Zolpidem Tartrate 10 Mg Tablet Bedtime as needed for Sleep Active [facility] Allergies, Adverse Reactions, Alerts Substance Category Reaction Severity Reaction type Status Date Reported Comments Source No Known Drug Allergies Unknown Allergy to Substance Active 12/02/2017 [facility] Immunizations Immunization Date Given Site Status Last Updated Comments Source Results Order Name Results Value Reference Range Date Interpretation Comments Source Automated blood basophil count (count/volume) Automated blood basophil count (count/volume) 0.0 0.0 - 0.1 12/04/2017 [facility] Automated blood basophil count as percentage of total leukocytes Automated blood basophil count as percentage of total leukocytes 0.3 0.0 - 1.0 12/04/2017 [facility] Automated blood eosinophil count Automated blood eosinophil count 0.2 0.0 - 0.4 12/04/2017 [facility] Automated blood eosinophil count as percentage of total leukocytes Automated blood eosinophil count as percentage of total leukocytes 1.5 0.0 - 6.0 12/04/2017 [facility] Automated blood hematocrit (volume fraction) Automated blood hematocrit (volume fraction) 28.9 34.2 - 44.1 12/04/2017 [facility] Automated blood lymphocyte count as percentage ot total leukocytes Automated blood lymphocyte count as percentage ot total leukocytes 20.2 18.0 - 39.1 12/04/2017 [facility] Automated blood monocyte count as percentage of total leukocytes Automated blood monocyte count as percentage of total leukocytes 6.9 4.4 - 11.3 12/04/2017 [facility] Automated blood neutrophil count Automated blood neutrophil count 8.2 2.1 - 6.9 12/04/2017 [facility] Automated blood platelet count (count/volume) Automated blood platelet count (count/volume) 258 140 - 360 12/04/2017 [facility] Automated blood segmented neutrophil count as percentage of total leukocytes Automated blood segmented neutrophil count as percentage of total leukocytes 70.8 38.7 - 80.0 12/04/2017 [facility] Automated erythrocyte mean corpuscular hemoglobin (mass per erythrocyte) Automated erythrocyte mean corpuscular hemoglobin (mass per erythrocyte) 27.2 28 - 32 12/04/2017 [facility] Automated erythrocyte mean corpuscular hemoglobin concentration measurement (mass/volume) Automated erythrocyte mean corpuscular hemoglobin concentration measurement (mass/volume) 31.8 31 - 35 12/04/2017 [facility] Automated erythrocyte mean corpuscular volume Automated erythrocyte mean corpuscular volume 85.5 81 - 99 12/04/2017 [facility] Blood erythrocytes automated count (number/volume) Blood erythrocytes automated count (number/volume) 3.38 3.6 - 5.1 12/04/2017 [facility] Blood hemoglobin measurement (moles/volume) Blood hemoglobin measurement (moles/volume) 9.2 12.0 - 16.0 12/04/2017 [facility] Blood leukocytes automated count (number/volume) Blood leukocytes automated count (number/volume) 11.58 4.8 - 10.8 12/04/2017 [facility] Blood lymphocytes count (number/volume) Blood lymphocytes count (number/volume) 2.3 1.0 - 3.2 12/04/2017 [facility] Blood monocytes automated count (number/volume) Blood monocytes automated count (number/volume) 0.8 0.2 - 0.8 12/04/2017 [facility] Estimated glomerular filtration rate (GFR) determination Estimated glomerular filtration rate (GFR) determination null 60 12/04/2017 [facility] Glucose measurement Glucose measurement 88 74 - 118 12/04/2017 [facility] Serum or plasma anion gap Serum or plasma anion gap 12.0 8 - 16 12/04/2017 [facility] Serum or plasma calcium measurement (mass/volume) Serum or plasma calcium measurement (mass/volume) 8.7 8.4 - 10.2 12/04/2017 [facility] Serum or plasma carbon dioxide, total measurement (moles/volume) Serum or plasma carbon dioxide, total measurement (moles/volume) 24 22 - 29 12/04/2017 [facility] Serum or plasma chloride measurement (moles/volume) Serum or plasma chloride measurement (moles/volume) 106 98 - 107 12/04/2017 [facility] Serum or plasma creatinine measurement (mass/volume) Serum or plasma creatinine measurement (mass/volume) 0.80 0.57 - 1.11 12/04/2017 [facility] Serum or plasma potassium measurement (moles/volume) Serum or plasma potassium measurement (moles/volume) 4.0 3.5 - 5.1 12/04/2017 [facility] Serum or plasma sodium measurement (moles/volume) Serum or plasma sodium measurement (moles/volume) 138 136 - 145 12/04/2017 [facility] Serum or plasma urea nitrogen measurement (mass/volume) Serum or plasma urea nitrogen measurement (mass/volume) 14 7 - 26 12/04/2017 [facility] Serum or plasma urea nitrogen/creatinine mass ratio Serum or plasma urea nitrogen/creatinine mass ratio 18 6 - 25 12/04/2017 [facility] Red Cell Distribution Width 17.7 11.7 - 14.4 12/04/2017 [facility] IM GRANULOCYTES % 0.3 0.0 - 1.0 12/04/2017 [facility] Absolute Immature Granulocyte (auto 0.03 0 - 0.1 12/04/2017 [facility] Activated partial thromboplastin time (aPTT) in platelet poor plasma bycoagulation assay Activated partial thromboplastin time (aPTT) in platelet poor plasma bycoagulation assay 42.3 23.8 - 35.5 12/03/2017 [facility] INR in Platelet poor plasma by Coagulation assay INR in Platelet poor plasma by Coagulation assay 1.92 12/03/2017 [facility] Prothrombin time (PT) in platelet poor plasma by coagulation assay Prothrombin time (PT) in platelet poor plasma by coagulation assay 20.6 11.9 - 14.5 12/03/2017 [facility] Serum or plasma cholesterol in HDL measurement (mass/volume) Serum or plasma cholesterol in HDL measurement (mass/volume) 44 40 - 60 12/03/2017 [facility] Serum or plasma cholesterol in LDL measurement (mass/volume) Serum or plasma cholesterol in LDL measurement (mass/volume) 88 60 - 130 12/03/2017 [facility] Serum or plasma cholesterol measurement (mass/volume) Serum or plasma cholesterol measurement (mass/volume) 153 0 - 199 12/03/2017 [facility] Serum or plasma creatine kinase MB measurement (mass/volume) Serum or plasma creatine kinase MB measurement (mass/volume) 0.50 0 - 5.0 12/03/2017 [facility] Serum or plasma creatine kinase measurement (enzymatic activity/volume) Serum or plasma creatine kinase measurement (enzymatic activity/volume) 39 29 - 168 12/03/2017 [facility] Serum or plasma total cholesterol/cholesterol in HDL mass ratio Serum or plasma total cholesterol/cholesterol in HDL mass ratio 3.5 3.0 - 3.6 12/03/2017 [facility] Serum or plasma triglyceride measurement (mass/volume) Serum or plasma triglyceride measurement (mass/volume) 105 0 - 149 12/03/2017 [facility] Troponin I measurement by highly sensitive enzyme immunoassay Troponin I measurement by highly sensitive enzyme immunoassay null 0 - 0.300 12/03/2017 [facility] Serum or plasma thyrotropin measurement by detection limit <=0.005 miu/l (units/volume) Serum or plasma thyrotropin measurement by detection limit <=0.005 miu/l (units/volume) 1.599 0.350 - 4.940 12/03/2017 [facility] Plasma globulin measurement (mass/volume) Plasma globulin measurement (mass/volume) 3.5 2.3 - 3.5 12/02/2017 [facility] Serum or plasma alanine aminotransferase measurement (enzymatic activity/volume) Serum or plasma alanine aminotransferase measurement (enzymatic activity/volume) 16 0 - 55 12/02/2017 [facility] Serum or plasma albumin measurement (mass/volume) Serum or plasma albumin measurement (mass/volume) 3.3 3.5 - 5.0 12/02/2017 [facility] Serum or plasma albumin/globulin mass ratio Serum or plasma albumin/globulin mass ratio 0.9 0.8 - 2.0 12/02/2017 [facility] Serum or plasma alkaline phosphatase measurement (enzymatic activity/volume) Serum or plasma alkaline phosphatase measurement (enzymatic activity/volume) 119 40 - 150 12/02/2017 [facility] Serum or plasma digoxin measurement (mass/volume) Serum or plasma digoxin measurement (mass/volume) 1.06 0.8 - 2.0 12/02/2017 [facility] Serum or plasma protein measurement (mass/volume) Serum or plasma protein measurement (mass/volume) 6.8 6.5 - 8.1 12/02/2017 [facility] Serum or plasma total bilirubin measurement (mass/volume) Serum or plasma total bilirubin measurement (mass/volume) 0.4 0.2 - 1.2 12/02/2017 [facility] Aspartate Amino Transf (AST/SGOT) 26 5 - 34 12/02/2017 [facility] B-Type Natriuretic Peptide 219.2 0 - 100 12/02/2017 [facility] Automated urine sediment leukocyte count by microscopy (number/high power field) Automated urine sediment leukocyte count by microscopy (number/high power field) null 0 - 5 12/02/2017 [facility] Bacteria detection in urine sediment by light microscopy Bacteria detection in urine sediment by light microscopy MANY NONE 12/02/2017 [facility] Epithelial cells detection in urine sediment by light microscopy Epithelial cells detection in urine sediment by light microscopy MODERATE NONE 12/02/2017 [facility] Erythrocytes detection in urine sediment by light microscopy Erythrocytes detection in urine sediment by light microscopy null 0 - 5 12/02/2017 [facility] Mucus detection in urine sediment by light microscopy Mucus detection in urine sediment by light microscopy FEW RARE 12/02/2017 [facility] Specific gravity of Urine by Test strip Specific gravity of Urine by Test strip 1.020 1.010 - 1.025 12/02/2017 [facility] Urine clarity Urine clarity SL CLOUDY CLEAR 12/02/2017 [facility] Urine color determination Urine color determination YELLOW YELLOW 12/02/2017 [facility] Urine erythrocytes detection Urine erythrocytes detection NEGATIVE NEGATIVE 12/02/2017 [facility] Urine glucose detection Urine glucose detection NEGATIVE NEGATIVE 12/02/2017 [facility] Urine ketones detection by automated test strip Urine ketones detection by automated test strip NEGATIVE NEGATIVE 12/02/2017 [facility] Urine leukocyte esterase detection by dipstick Urine leukocyte esterase detection by dipstick 1+ NEGATIVE 12/02/2017 [facility] Urine nitrite detection Urine nitrite detection NEGATIVE NEGATIVE 12/02/2017 [facility] Urine pH measurement by automated test strip Urine pH measurement by automated test strip 6 5 - 7 12/02/2017 [facility] Urine protein measurement by test strip (mass/volume) Urine protein measurement by test strip (mass/volume) NEGATIVE NEGATIVE 12/02/2017 [facility] Urine total bilirubin measurement (mass/volume) Urine total bilirubin measurement (mass/volume) NEGATIVE NEGATIVE 12/02/2017 [facility] Urine urobilinogen measurement by test strip (mass/volume) Urine urobilinogen measurement by test strip (mass/volume) 0.2 0.2 - 1 12/02/2017 [facility] Vital Signs Vital Sign Value Date Comments Source Encounters Location Location Details Encounter Type Encounter Number Reason For Visit Attending Provider ADM Date DC Date Status Source Discharged Inpatient (obs) [id number] ANTONI NEWSOME MD 12/03/2017 12/04/2017 [facility] Procedures Procedure Code Date Perfomer Comments Source X-ray of chest, single view [id number] 12/02/2017 ARNULFO [facility]
[2018-04-03] MEDS ORDERED: ONDANSETRON HCL INJ 2 MG/ML VIAL IV STA (15:29)
[2018-04-03] MEDS ORDERED: MORPHINE SULFATE INJ 4 MG/ML INJ IV STA (15:29)
[2018-04-03] MEDS ORDERED: SODIUM CHLORIDE 0.9% 1000ML 1,000 ML IV STA (15:29)
[2018-04-03 16:36] LABS: BASOPHILS # (AUTO) 0.1 (0.0-0.1); BASOPHILS % 0.7 % (0.0-1.0); EOSINOPHILS # (AUTO) 0.1 (0.0-0.4); EOSINOPHILS % 0.8 % (0.0-6.0); HEMATOCRIT 37.2 % (34.2-44.1); HEMOGLOBIN 11.7 g/dL (12.0-16.0); LYMPHOCYTES # (AUTO) 2.8 (1.0-3.2); LYMPHOCYTES % 24.6 % (18.0-39.1); MEAN CORPUSCULAR HEMOGLOBIN 25.8 pg (28-32); MEAN CORPUSCULAR HGB CONC 31.5 g/dL (31-35); MEAN CORPUSCULAR VOLUME 82.1 fL (81-99); MONOCYTES % 9.1 % (4.4-11.3); NEUTROPHILS # (AUTO) 7.3 (2.1-6.9); NEUTROPHILS % 64.4 % (38.7-80.0); PLATELET COUNT 361 x10e3/uL (140-360); RED BLOOD COUNT 4.53 x10e6/uL (3.6-5.1); RED CELL DISTRIBUTION WIDTH 15.6 % (11.7-14.4)
[2018-04-03 16:57] LABS: ALANINE AMINOTRANSFERASE 19 IU/L (0-55); ALBUMIN 3.7 g/dL (3.5-5.0); ALBUMIN/GLOBULIN RATIO 1.1 (0.8-2.0); ALKALINE PHOSPHATASE 137 IU/L (40-150); ANION GAP 14.9 mmol/L (8-16); BLOOD UREA NITROGEN 16 mg/dL (7-26); BUN/CREATININE RATIO 22 (6-25); CALCIUM 9.5 mg/dL (8.4-10.2); CARBON DIOXIDE 26 mmol/L (22-29); CHLORIDE 103 mmol/L (98-107); CREATININE, SERUM 0.74 mg/dL (0.57-1.11); EST GLOMERULAR FILTRATION RATE > 60 ML/MIN (60-); GLUCOSE 87 mg/dL (74-118); LIPASE 22 U/L (8-78); POTASSIUM 3.9 mmol/L (3.5-5.1); SODIUM 140 mmol/L (136-145)
[2018-04-03 17:32] LABS: BILIRUBIN,URINE NEGATIVE (NEGATIVE); CLARITY,URINE CLEAR (CLEAR); COLOR,URINE YELLOW (YELLOW); KETONES,URINE NEGATIVE (NEGATIVE); LEUKOCYTE ESTERASE ,URINE NEGATIVE (NEGATIVE); NITRITE,URINE NEGATIVE (NEGATIVE); PROTEIN,URINE DIPSTICK NEGATIVE (NEGATIVE); URINE UROBILINOGEN 0.2 mg/dL (0.2 - 1)
[2018-04-03 17:43] LABS: EPITHELIAL CELLS,URINE RARE /LPF; RBC,URINE 0-5 /HPF (0-5)
--- NOTE | 2018-04-03 18:11 | Diagnostic Imaging Report ---
EXAM: CT Abdomen and Pelvis WITH contrast INDICATION: Abdominal pain. Left-sided abdominal bruise. Pain. COMPARISON: None. TECHNIQUE: Abdomen and pelvis were scanned utilizing a multidetector helical scanner from the lung base to the pubic symphysis after administration of IV contrast. Coronal and sagittal reformations were obtained. Routine protocol was performed. Scan was performed when during portal venous phase. IV CONTRAST: 150 mL of Omnipaque 300 ORAL CONTRAST: Water RADIATION DOSE: Total DLP: 361.17 mGy*cm Estimated effective dose: (DLP x 0.015 x size factor) mSv COMPLICATIONS: None FINDINGS: LINES and TUBES: None. LOWER THORAX: Mild bibasilar dependent atelectasis. Pacemaker leads partially visualized. HEPATOBILIARY: Low-attenuation hepatic lesions suggestive of cysts, the largest in the left lobe measuring 1.5 cm on image 15 series 2. No biliary ductal dilation. GALLBLADDER: No radio-opaque stones or sludge. No wall thickening. SPLEEN: No splenomegaly. PANCREAS: No focal masses or ductal dilatation. ADRENALS: No adrenal nodules KIDNEYS/URETERS: Kidneys enhance symmetrically. No hydronephrosis. 3.7 cm cyst in the interpolar region of the right kidney posteriorly on image 25. No stones. GI TRACT: No abnormal distention, wall thickening, or evidence of bowel obstruction. Appendix is normal. PELVIC ORGANS/BLADDER: The uterus is not visualized suggesting status post hysterectomy. LYMPH NODES: No lymphadenopathy. VESSELS: There is moderate atherosclerotic disease in the aorta and major arterial branches. PERITONEUM / RETROPERITONEUM: No free air or fluid. BONES: Status post laminectomy and posterior fusion of L4-L5 and L5-S1. Mild grade 1 anterolisthesis of L4 in relation to L5. Multilevel degenerative changes. Stimulator device is noted. SOFT TISSUES: Minimal subcutaneous fat stranding in the left upper quadrant anteriorly on image 21. IMPRESSION: 1. No acute abdominal pelvic abnormality. Signed by: Dr. Colt Bower M.D. on 04/03/2018 6:08 PM
[2018-04-03] MEDS ORDERED: KETOROLAC TROMETHAMINE 30 MG/ML VIAL IV STA (18:36)
[2018-04-03] MEDS ORDERED: KETOROLAC TROMETHAMINE 30 MG/ML VIAL ONE (18:37)
[2018-04-03] MEDS ORDERED: IOPAMIDOL 370 MG/ML 200 ML INFUS..BTL INJ ONE (19:56)
[2018-04-03] MEDS ORDERED: SODIUM CHLORIDE 0.9% 50ML 50 ML ONE (19:56)
[2018-04-24] MEDS ORDERED: METOPROLOL SUCC50 MG PO (13:57)
[2018-04-24] MEDS ORDERED: FUROSEMIDE40 MG PO (13:59)
[2018-04-24] MEDS ORDERED: ASPIR 8181 MG PO (14:00)
[2018-04-28] MEDS ORDERED: NORCO 7.5-3251 EACH PO (08:57)
== END 2018-04-03 18:48 | disposition home or self-care (01) ==
LOC: ER 14:56
DX: R10.32 Left lower quadrant pain (principal); R10.84 Generalized abdominal pain; R11.0 Nausea; F41.9 Anxiety disorder, unspecified; F32.9 Major depressive disorder, single episode, unspecified
CPT/HCPCS: 36415; 74177; 80053; 81001; 83690; 85025; 99284; J1885; J2270; J2405; J7030; Q9967

== ENCOUNTER → 2018-04-15 | Outpatient (CLI) | payer MEDICARE ==
[~2018-04-15] MED LIST changes: +ASPIR 8181 MG PO; +FUROSEMIDE40 MG PO; +METOPROLOL SUCC50 MG PO; +NORCO 7.5-3251 EACH PO
--- NOTE | 2018-04-15 16:18 | Diagnostic Imaging Report ---
EXAMINATION: Frontal chest and left rib radiographs COMPARISON: CT abdomen and pelvis with contrast 04/03/2018 CLINICAL HISTORY: Left rib pain DISCUSSION: The lungs are well-inflated. No focal airspace consolidation, pleural effusion, or pneumothorax. Mild enlargement of the cardiac silhouette without vascular decompensation. Left subclavian approach implantable cardiac device body projects over the left midlung. Leads project over the expected regions of the right atrium and right ventricle. Partially visualized surgical hardware projects over the upper lumbar vertebral column. Cervical spine fusion hardware partially visualized. No displaced left rib fracture. IMPRESSION: No acute, displaced left rib fracture or pneumothorax. Signed by: Dr. Corey Kee M.D. on 04/15/2018 4:15 PM
--- NOTE | 2018-04-15 16:21 | Diagnostic Imaging Report ---
EXAMINATION: PA and lateral views of the chest. COMPARISON: Rib radiograph same day CLINICAL HISTORY: Rib pain DISCUSSION: Lungs are well-inflated and without consolidation, pleural effusion, or pneumothorax. Cardiomediastinal contour is notable for borderline enlargement of the cardiac silhouette without vascular decompensation. Tortuous thoracic aorta with atherosclerotic calcification. Left subclavian approach implantable cardiac device body and leads, partially visualized cervical spine fusion hardware, and partially visualized spinal stimulator device. No acute osseous abnormality. IMPRESSION: No acute cardiopulmonary abnormalities. Signed by: Dr. Corey Kee M.D. on 04/15/2018 4:17 PM
== END ==
LOC: RAD 15:24
PROVIDERS: ATTEND Internal Medicine
DX: R07.81 Pleurodynia (principal); R07.89 Other chest pain
CPT/HCPCS: 71046; 71101

== ENCOUNTER 2018-06-14 19:29 | Emergency (ER) | payer MEDICARE ==
[~2018-06-14] VITALS: Ht 162.6 cm; Wt 73.5 kg
[2018-06-14] MEDS ORDERED: DILTIAZEM HCL VIAL 5 ML ONE (20:16)
[2018-06-14] MEDS ORDERED: ASPIRIN 81 MG CHEW TAB PO ONE (20:30)
[2018-06-14 20:46] LABS: BASOPHILS # (AUTO) 0.1 (0.0-0.1); BASOPHILS % 0.6 % (0.0-1.0); EOSINOPHILS # (AUTO) 0.1 (0.0-0.4); EOSINOPHILS % 0.9 % (0.0-6.0); HEMATOCRIT 36.5 % (34.2-44.1); LYMPHOCYTES # (AUTO) 2.3 (1.0-3.2); MEAN CORPUSCULAR HEMOGLOBIN 24.3 pg (28-32); MEAN CORPUSCULAR HGB CONC 30.1 g/dL (31-35); MEAN CORPUSCULAR VOLUME 80.8 fL (81-99); MONOCYTES # (AUTO) 0.7 (0.2-0.8); MONOCYTES % 6.4 % (4.4-11.3); NEUTROPHILS # (AUTO) 8.1 (2.1-6.9); NEUTROPHILS % 71.7 % (38.7-80.0); PLATELET COUNT 302 x10e3/uL (140-360); RED BLOOD COUNT 4.52 x10e6/uL (3.6-5.1); RED CELL DISTRIBUTION WIDTH 17.1 % (11.7-14.4)
--- NOTE | 2018-06-14 21:02 | Diagnostic Imaging Report ---
EXAMINATION: CHEST SINGLE (PORTABLE) INDICATION: sob COMPARISON: 04/15/2018 FINDINGS: AP view TUBES and LINES: Left chest wall cardiac pacer. Defibrillator pads. LUNGS: Lungs are well inflated. Lungs are clear. There is no evidence of pneumonia or pulmonary edema. PLEURA: No pleural effusion or pneumothorax. HEART AND MEDIASTINUM: Mild enlargement of the cardiac silhouette. There are atherosclerotic calcifications within the aorta. BONES AND SOFT TISSUES: No acute osseous lesion. Lower cervical fusion hardware. Soft tissues are unremarkable. UPPER ABDOMEN: No free air under the diaphragm. IMPRESSION: No acute thoracic abnormality. Signed by: DR. Alonzo Garcia MD on 06/14/2018 8:58 PM
[2018-06-14] MEDS ORDERED: MORPHINE SULFATE INJ 4 MG/ML INJ 1ML IV STA (21:17)
[2018-06-14 21:24] LABS: ALANINE AMINOTRANSFERASE 30 IU/L (0-55); ALBUMIN 3.8 g/dL (3.5-5.0); ALBUMIN/GLOBULIN RATIO 1.3 (0.8-2.0); ALKALINE PHOSPHATASE 133 IU/L (40-150); ANION GAP 19.2 mmol/L (8-16); BLOOD UREA NITROGEN 13 mg/dL (7-26); BUN/CREATININE RATIO 17 (6-25); CALCIUM 9.1 mg/dL (8.4-10.2); CARBON DIOXIDE 19 mmol/L (22-29); CHLORIDE 108 mmol/L (98-107); CREATINE KINASE 273 IU/L (29-168); CREATININE, SERUM 0.77 mg/dL (0.57-1.11); EST GLOMERULAR FILTRATION RATE > 60 ML/MIN (60-); GLUCOSE 84 mg/dL (74-118); POTASSIUM 4.2 mmol/L (3.5-5.1); SODIUM 142 mmol/L (136-145)
[2018-06-14] MEDS ORDERED: MORPHINE SULFATE INJ 4 MG/ML INJ 1ML ONE (21:26)
[2018-06-14] MEDS ORDERED: METOCLOPRAMIDE HCL 10 MG/2ML VIAL IV ONE (21:30)
[2018-06-14] MEDS ORDERED: DIPHENHYDRAMINE HCL INJ 50 MG/ML VIAL IV ONE (21:30)
[2018-06-14] MEDS ORDERED: DILTIAZEM HCL 125 ML IV STA (21:35)
[2018-06-14] MEDS ORDERED: SODIUM CHLORIDE 0.9% 100 ML ONE (21:39)
[2018-06-14] MEDS ORDERED: DILTIAZEM HCL IV 5MG/ML 25 ML VIAL ONE (21:40)
[2018-06-14] MEDS ORDERED: DILTIAZEM HCL 125 ML IV PRN (21:45)
[2018-06-14] MEDS ORDERED: AMIODARONE HCL 150MG 100 ML ONE (22:20)
[2018-06-14] MEDS ORDERED: AMIODARONE 900MG 500 ML IV ONE (22:20)
[2018-06-14] MEDS ORDERED: AMIODARONE 900MG 500 ML IV PRN (22:30)
[2018-06-14] MEDS ORDERED: AMIODARONE HCL 150 MG/100 ML BAG IV ONE (22:30)
--- NOTE | 2018-06-14 22:41 | NUR ---
Patient started on Cardizem gtt for Afib with RVR at 2140 at 5mg/hr. At 2200 Cardizem gtt titrated to 7 mg/hr after HR continued between 130-150 bpm. At 2220 Patient HR continued to be irregular with a widening gap between 108-162. Order obtained for Amiodarone gtt. Amiodarone gtt loading dose started at 2225. Maintenance dose started at 2235.
--- NOTE | 2018-06-14 22:48 | NUR ---
TRANSFER INITIATED TO [facility]
[2018-06-14 23:11] LABS: BILIRUBIN,URINE NEGATIVE (NEGATIVE); CLARITY,URINE CLEAR (CLEAR); COLOR,URINE YELLOW (YELLOW); KETONES,URINE NEGATIVE (NEGATIVE); LEUKOCYTE ESTERASE ,URINE NEGATIVE (NEGATIVE); NITRITE,URINE NEGATIVE (NEGATIVE); PROTEIN,URINE DIPSTICK NEGATIVE (NEGATIVE); URINE UROBILINOGEN 0.2 mg/dL (0.2 - 1)
[2018-06-14 23:13] LABS: EPITHELIAL CELLS,URINE FEW /LPF; RBC,URINE 0-5 /HPF (0-5); WBC,URINE (MAN) 0-5 /HPF (0-5)
[2018-06-14] MEDS ORDERED: LORAZEPAM INJ 2 MG/ML VIAL IV ONE (23:45)
--- NOTE | 2018-06-15 00:13 | NUR ---
REPORT CALLED TO [facility] THIS TIME.
--- NOTE | 2018-06-15 00:31 | Diagnostic Imaging Report ---
Exam: Head CT without contrast History: Headache Comparison studies: None available at time of dictation. Technique: Axial images were obtained from the skull base to the vertex. Coronal and sagittal images reconstructed from the axial data. Dose modulation, iterative reconstruction, and/or weight based adjustment of the mA/kV was utilized to reduce the radiation dose to as low as reasonably achievable. Radiation dose: Total DLP: 921 mGy*cm. Estimated effective dose: DLP x 0.015 Intravenous contrast: None Findings: Scalp: No abnormalities. Bones: No fractures, blastic or lytic lesions. Brain sulci: Appropriate for age. Ventricles: Mild compensatory dilatation due to mild central cerebral volume loss. No acute hydrocephalus. Parenchyma: No mass, acute hemorrhage or acute cortical vascular infarcts. Chronic lacunar infarct in the deep right parietal white matter. A few additional scattered hypodensities in the supratentorial white matter are nonspecific most compatible with chronic microvascular ischemic changes. Sellar/suprasellar region: No abnormalities. Craniocervical junction: Patent foramen magnum. No Chiari one malformation. Incidental findings: Atherosclerotic calcifications in the carotid siphons. Mildly prominent superior ophthalmic veins (right greater than left), a nonspecific finding which is likely of no clinical significance in the absence of ocular symptoms. calcifications in the carotid siphons. IMPRESSION: No acute intracranial abnormalities. Chronic findings: 1. Mild cerebral volume loss. 2. Mild microvascular ischemic changes. 3. Chronic right parietal lacunar infarct. Signed by: Dr. Corey Deluna M.D. on 06/15/2018 12:27 AM
--- NOTE | 2018-06-15 01:50 | NUR ---
[facility] HERE FOR TRANSPORT AT THIS TIME.
[2018-06-15] MEDS ORDERED: AMIODARONE 900MG 500 ML IV PRN (04:30)
== END 2018-06-15 04:14 | disposition other institution (70) ==
LOC: ER 19:29
DX: R00.2 Palpitations (principal); R07.89 Other chest pain; I48.0 Paroxysmal atrial fibrillation
CPT/HCPCS: 36415; 70450; 71045; 80053; 81001; 82550; 82553; 83880; 84484; 85025; 93005; 96365; 96374; 96375; 99285; J1200; J2060; J2270; J2765; J7050

== ENCOUNTER → 2018-08-26 | Outpatient (CLI) | payer MEDICARE ==
[~2018-08-26] MED LIST changes: +AMIODARONE HCL200 MG PO; +METOPROLOL TART50 MG PO; +PRAMIPEXOLE DIHY1 MG PO
--- NOTE | 2018-08-26 14:11 | Diagnostic Imaging Report ---
Right foot, 3 views. History: Right foot pain. Findings: The soft tissues are normal. The bones are diffusely osteopenic. There is no evidence of acute fracture or dislocation. Compression plate and screws are present on the lateral malleolus. Joint space narrowing, subchondral sclerosis, and osteophytosis are present in the second through fifth interphalangeal joints, mid foot, ankle joints, and most severely affecting the first tarsometatarsal joint. There are no lytic or sclerotic lesions. A small plantar calcaneal spur is present. 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 Signed by: Carlos Gan on 08/26/2018 2:08 PM
== END ==
LOC: RAD 13:18
PROVIDERS: ATTEND Internal Medicine
DX: M79.671 Pain in right foot (principal)

== ENCOUNTER → 2019-01-02 | Outpatient (CLI) | payer MEDICARE ==
--- NOTE | 2019-01-02 16:17 | Diagnostic Imaging Report ---
EXAM: Focused Soft Tissue Ultrasound Evaluation of bilateral neck INDICATION: ^[id number] ^[id number] ^NECK ADENOPATHY COMPARISON: None TECHNIQUE: Michelle scale, color Doppler images of the bilateral neck soft tissues were obtained. FINDINGS: No mass or fluid collection. No lymphadenopathy. IMPRESSION: Unremarkable exam. Signed by: Mirza Branham MD on 01/02/2019 4:14 PM
== END ==
LOC: US 12:34
PROVIDERS: ATTEND Internal Medicine
DX: R59.9 Enlarged lymph nodes, unspecified (principal)
CPT/HCPCS: 76536

== ENCOUNTER 2019-01-20 12:21 | Emergency (ER) | payer MEDICARE ==
[~2019-01-20] VITALS: Ht 160 cm; Wt 68.9 kg
--- OUTSIDE RECORDS SUMMARY | 2019-01-20 12:25 | XMS REPORT | Clinical Summary ---
Author Author RAE [facility] Address Unknown Phone Unavailable Care Team Providers Care Vp Director Of Creative Strategy Name Role Phone Unknownmeds, Provider PCP Unavailable Allergies No Known Allergies Medications End Date Status Medication Sig Dispensed Refills Start Date Active aspirin 81 MG chewable Take 81 mg by 0 tabletIndications: mouth daily. Peripheral Arterial Thromboembolism Prevention Active furosemide (LASIX) 40 MG Take 40 mg by 0 tabletIndications: edema mouth daily. Active citalopram (CELEXA) 20 MG Take 20 mg by 0 tabletIndications: mouth daily. Depression associated with Bipolar Disorder Active pramipexole (MIRAPEX) 1.5 Take 1.5 mg 0 MG tabletIndications: by mouth 3 Restless Legs Syndrome (three) times daily. Active zolpidem (AMBIEN) 10 mg Take 10 mg by 0 tabletIndications: mouth every Sleep-Onset Insomnia night as needed for Insomnia. Active rivaroxaban (XARELTO) 20 Take 20 mg by 0 mg Tab tabletIndications: mouth daily Prevention of Deep Vein with dinner. Thrombosis Recurrence Active tiZANidine (ZANAFLEX) 4 Take 8 mg by 0 MG tabletIndications: mouth muscle spasm nightly. 06/21/2019 Active amiodarone (PACERONE) 200 Take 1 tablet 60 tablet 11 MG tablet (200 mg 9 total) by mouth 2 (two) times daily. 06/21/2019 Active metoprolol (LOPRESSOR) 50 Take 1 tablet 60 tablet 11 201 MG tablet (50 mg total) 9 by mouth 2 (two) times daily. 06/21/2018 Discontinued amLODIPine (NORVASC) 5 MG Take 5 mg by 0 tabletIndications: mouth daily. hypertension 06/21/2018 Discontinued metoprolol (TOPROL-XL) 50 Take 50 mg by 0 MG 24 hr mouth daily. tabletIndications: hypertension 06/24/2018 cefdinir (OMNICEF) 300 MG Take 1 6 capsule 0 capsule capsule (300 9 mg total) by mouth 2 (two) times daily for 3 days. Active Problems Problem Noted Date Atrial fibrillation with RVR 06/15/2018 Congestive heart failure (CHF) 06/15/2018 Restless leg syndrome 06/15/2018 Depression 06/15/2018 Anxiety 06/15/2018 Acute decompensated heart failure 06/15/2018 Encounters Care Team Description Date Type Specialty Juan Antonio Mcdowell MD Bandeali, Barkatali K., MD Tran, Tuan (Mark) MD Jv Primary osteoarthritis of left knee 06/15/2018 Hospital Cardiology - Encounter 06/21/2018 06/15/2018 Travel after 01/19/2018 Social History Date Tobacco Use Types Packs/Day Years Used Never Smoker Smokeless Tobacco: Never Used Alcohol Use Drinks/Week oz/Week Comments Yes 2 Standard 1.2 drinks or equivalent Alcohol Habits Answer Date Recorded How often do you have a drink containing alcohol? 2-4 times a month 06/15/2018 How many drinks containing alcohol do you have on 1 or 2 06/15/2018 a typical day when you are drinking? How often do you have six or more drinks on one Not asked occasion? Sex Assigned at Date Recorded Not on file Industry Job Start Date Occupation Not on file Not on file Not on file Travel End Travel History Travel Start No recent travel history available. Last Filed Vital Signs Time Taken Vital Sign Reading 06/21/2018 12:13 PM [facility] Blood Pressure 146/72 06/21/2018 12:13 PM [facility] Pulse 69 06/21/2018 12:13 PM [facility] Temperature 36.6 C (97.9 F) 06/21/2018 12:13 PM [facility] Respiratory Rate 18 06/21/2018 12:13 PM [facility] Oxygen Saturation 96% - Inhaled Oxygen - Concentration 06/21/2018 8:00 AM [facility]SP[facility]ER [facility]IPPER Weight 68.9 kg (151 lb 14.4 oz) 06/15/2018 3:29 AM [facility]ER [facility]IPPER Height 162.6 cm (5' 4") 06/21/2018 8:00 AM NEWSP[facility]ER CLIPPER Body Mass Index 26.07 Plan of Treatment Not on file Procedures Comments Procedure Name Priority Date/Time Associated Diagnosis RHYTHM STRIP - SCAN 08/03/2018 3:10 PM CDT RHYTHM STRIP - SCAN 06/25/2018 4:42 PM [facility]SP[facility]ER [facility]IPPER REPORT OF PROCEDURE - 06/25/2018 ENDOSCOPY SCAN 4:42 PM [facility]PER CBC W/PLT COUNT & AUTO Routine 06/21/2018 DIFFERENTIAL 4:20 AM [facility] CBC W/PLT COUNT & AUTO Routine 06/21/2018 DIFFERENTIAL 4:20 AM [facility] MAGNESIUM Routine 06/21/2018 4:20 AM NEWSP[facility]ER [facility]IPPER BASIC METABOLIC PANEL (7) Routine 06/21/2018 4:20 AM [facility]IPPER CBC W/PLT COUNT & AUTO Routine 06/20/2018 DIFFERENTIAL 4:58 AM [employer]IPPER CBC W/PLT COUNT & AUTO Routine 06/20/2018 DIFFERENTIAL 4:58 AM [facility] MAGNESIUM Routine 06/20/2018 4:58 AM [facility]ER [facility]IPPER BASIC METABOLIC PANEL (7) Routine 06/20/2018 4:58 AM NEWSP[facility]ER [facility]IPPER C-REACTIVE PROTEIN STAT 06/19/2018 12:38 PM NEWSP[facility]ER CLIPPER (CELLAVISION MANUAL DIFF) Routine 06/19/2018 3:56 AM [facility]ER [facility]IPPER CBC W/PLT COUNT & AUTO Routine 06/19/2018 DIFFERENTIAL 3:56 AM [facility]ER [facility]IPPER CBC W/PLT COUNT & AUTO Routine 06/19/2018 DIFFERENTIAL 3:56 AM [facility] MAGNESIUM Routine 06/19/2018 3:56 AM [facility]IP[facility] BASIC METABOLIC PANEL (7) Routine 06/19/2018 3:56 AM [facility]SP[facility]ER CLIPPER XR LUMBAR SPINE 2 OR 3 Routine 06/18/2018 VIEWS 2:14 PM [facility]IPPER XR KNEE 3 VIEWS LEFT Routine 06/18/2018 2:14 PM [facility]SP[facility]ER CLIPPER (CELLAVISION MANUAL DIFF) Routine 06/18/2018 5:35 AM [facility]SP[facility]ER [facility]IPPER CBC W/PLT COUNT & AUTO Routine 06/18/2018 DIFFERENTIAL 5:35 AM [facility]ER [facility]IPPER CBC W/PLT COUNT & AUTO Routine 06/18/2018 DIFFERENTIAL 5:35 AM [facility] MAGNESIUM Routine 06/18/2018 5:35 AM [facility]IP[facility] BASIC METABOLIC PANEL (7) Routine 06/18/2018 5:35 AM [facility]IP[facility] URINALYSIS W/ REFLEX Routine 06/17/2018 URINE CULTURE 9:46 PM [facility]PER URINE CULTURE Routine 06/17/2018 9:46 PM [facility] TRANSESOPHAGEAL ECHO Routine 06/17/2018 12:09 PM [facility]PER POCT-GLUCOSE METER Routine 06/17/2018 11:31 AM [facility]IPPER POCT-GLUCOSE METER Routine 06/17/2018 10:57 AM [facility]ER [facility]IPPER CBC W/PLT COUNT & AUTO Routine 06/17/2018 DIFFERENTIAL 3:15 AM [facility]ER [facility]IPPER CBC W/PLT COUNT & AUTO Routine 06/17/2018 DIFFERENTIAL 3:15 AM [facility]IPPER MAGNESIUM Routine 06/17/2018 3:15 AM [facility]ER [facility]IPPER BASIC METABOLIC PANEL (7) Routine 06/17/2018 3:15 AM NEWSP[facility]ER CLIPPER TRANSFUSION SERVICE 06/16/2018 REPORT - SCAN 6:00 PM [facility]PER CARDIOVERSION Routine 06/16/2018 1:18 PM [facility]IPPER CBC W/PLT COUNT & AUTO Routine 06/16/2018 DIFFERENTIAL 5:18 AM [facility]ER [facility]IPPER CBC W/PLT COUNT & AUTO Routine 06/16/2018 DIFFERENTIAL 5:18 AM [facility] MAGNESIUM Routine 06/16/2018 5:18 AM [facility]SP[facility]ER CLIPPER BASIC METABOLIC PANEL (7) Routine 06/16/2018 5:18 AM NEWSPAPER CLIPPER 2D ECHO W/ DOPPLER NARENDRA 06/16/2018 (CW/PW/COLOR) 1:50 AM [facility]ER [facility]IPPER TROPONIN I Routine 06/15/2018 3:03 PM NEW[facility]ER [facility]IPPER ABORH, MANUAL STAT 06/15/2018 5:29 AM NEWSPAPER CLIPPER CBC W/PLT COUNT & AUTO STAT 06/15/2018 DIFFERENTIAL 4:40 AM NEWSPAPER CLIPPER TYPE AND SCREEN, STAT 06/15/2018 AUTOMATED 4:40 AM NEW[facility]ER [facility]IPPER TSH/FREE T4 IF INDICATED STAT 06/15/2018 4:40 AM NEWSP[facility]ER CLIPPER LIPID PANEL STAT 06/15/2018 4:40 AM NEW[facility]ER [facility]IPPER HEMOGLOBIN A1C STAT 06/15/2018 4:40 AM NEWSP[facility]ER CLIPPER B-TYPE NATRIURETIC FACTOR STAT 06/15/2018 (BNP) 4:40 AM [facility]ER [facility]IPPER TROPONIN I STAT 06/15/2018 4:40 AM [facility]SP[facility]ER [facility]IPPER APTT STAT 06/15/2018 4:40 AM [facility]SP[facility]ER CLIPPER PROTHROMBIN TIME/INR STAT 06/15/2018 4:40 AM [facility]IPPER MAGNESIUM STAT 06/15/2018 4:40 AM [facility]ER [facility]IPPER COMPREHENSIVE METABOLIC STAT 06/15/2018 PANEL 4:40 AM [facility]ER [facility]IPPER CBC W/PLT COUNT & AUTO STAT 06/15/2018 DIFFERENTIAL 4:40 AM NEWSP[facility]ER [facility]IPPER after 01/19/2018 Results * RHYTHM STRIP - SCAN (08/03/2018 3:10 PM CDT) Only the most recent of 2 results within the time period is included. Narrative Performed At * EKG-SCANNED (06/25/2018 4:42 PM [facility]SP[facility]ER [facility]IPPER) Narrative Performed At * CBC with platelet count + automated diff (06/21/2018 4:20 AM NEWSPAPER CLIPPER) Only the most recent of 7 results within the time period is included. WBC 11.7 (H) 3.5 - 10.5 K/L [facility] RBC 4.94 3.93 - 5.22 M/L [facility] Hemoglobin 11.9 11.2 - 15.7 GM/DL [facility] Hematocrit 40.1 34.1 - 44.9 % [facility] MCV 81.2 79.4 - 94.8 fL [facility] MCH 24.1 (L) 25.6 - 32.2 pg [facility] MCHC 29.7 (L) 32.2 - 35.5 GM/DL [facility] RDW 16.5 (H) 11.7 - 14.4 % [facility] Platelets 398 150 - 450 K/CU MM [facility] MPV 9.5 9.4 - 12.3 fL [facility] nRBC 0 0 - 0 /100 WBC [facility] % Neutros 66 % [facility] % Lymphs 21 % [facility] % Monos 9 % [facility] % Eos 2 % [facility] % Baso 1 % [facility] # Neutros 7.71 (H) 1.56 - 6.13 K/L [facility] # Lymphs 2.46 1.18 - 3.74 K/L [facility] # Monos 1.07 (H) 0.24 - 0.36 K/L [facility] # Eos 0.28 0.04 - 0.36 K/L [facility] # Baso 0.10 (H) 0.01 - 0.08 K/L [facility] Immature 0 0 - 1 % [facility] Granulocytes-[facility] Specimen Blood Performing Organization Address City/State/Zipcode Phone Number [facility] [address] [place] [address] [facility] * Magnesium (06/21/2018 4:20 AM NEWSPAPER CLIPPER) Only the most recent of 7 results within the time period is included. Magnesium 1.9 1.6 - 2.6 mg/dL [facility] Specimen Blood Performing Organization Address City/[facility] Phone Number [facility] [address] [place] [address] [facility] * Basic Metabolic Panel (06/21/2018 4:20 AM NEWSPAPER CLIPPER) Only the most recent of 6 results within the time period is included. Sodium 139 136 - 145 meq/L [facility] Potassium 3.8 3.5 - 5.1 meq/L [facility] Chloride 100 98 - 107 meq/L [facility] CO2 28 22 - 29 meq/L [facility] BUN 17 7 - 21 mg/dL [facility] Creatinine 0.78 0.57 - 1.25 mg/dL [facility] Glucose 95 70 - 105 mg/dL [facility] Calcium 9.8 8.4 - 10.2 mg/dL [facility] EGFR 73Comment: ESTIMATED GFR IS mL/min/1.73 sq m [facility] NOT ACCURATE CREATININE [facility] CLEARANCE IN PREDICTING GLOMERULAR FILTRATION RATE. ESTIMATED GFR IS NOT APPLICABLE FOR DIALYSIS PATIENTS. Specimen Blood Performing Organization Address City/[facility]/Zipcode Phone Number [place] [phone] [place] [address] [facility] * C-Reactive Protein (06/19/2018 12:38 PM NEWSP[facility]ER CLIPPER) CRP 14.33 (H) 0.00 - 0.50 mg/dL [facility] Specimen Blood Performing Organization Address City/[facility]/Zipcode Phone Number [facility] [address] [place] [address] [facility] * Manual Differential (06/19/2018 3:56 AM NEWSP[facility]ER CLIPPER) Only the most recent of 2 results within the time period is included. % Neutros 76 % [facility] % Lymphs 15 % [facility] % Monos 7 % [facility] % Bands 1 0 - 10 % [facility] % Atypical Lymphs 1 (H) 0 - 0 % [facility] # Neutros 11.40 (H) 1.56 - 6.13 K/ul [facility] # Lymphs 2.25 1.18 - 3.74 K/ul [facility] # Monos 1.05 (H) 0.24 - 0.36 K/uL [facility] # Bands 0.15 0.00 - 0.80 K/uL [facility] # Atypical Lymphs 0.15 (H) 0.00 - 0.00 K/uL [facility] Total Counted 100 [facility] Smudge Cells Present [facility] Giant Platelet Present [facility] Hypochromia 1+ few [facility] Anisocytosis 1+ few [facility] Microcytes 1+ few [facility] Poikilocytes 2+ moderate [facility] Fonda Cells 2+ moderate [facility] Artifact Present [facility] Platelet Conc Adequate [facility] Specimen Blood Narrative Performed At Received comment: [facility] User comments: [facility] Slide comments: Performing Organization Address City/State/Zipcode Phone Number [facility] [address] [place] [address] [facility] * XR knee 3 views left (06/18/2018 2:14 PM NEWSPAPER CLIPPER) Specimen Narrative Performed At FINAL REPORT [facility] Left foot. HISTORY: Left knee pain. Comparison study: None available. FINDINGS: Three views of the left foot demonstrate chondrocalcinosis. There are moderate to severe chondropathic changes in the medial compartment with an osteochondral defect in the medial femoral condyle measuring approximately 7 mm. Moderate chondropathic changes are seen in the patellofemoral and lateral compartments. No evidence of acute fracture or malalignment is seen. IMPRESSION: Chondrocalcinosis with tricompartmental chondropathic changes, most pronounced in the medial compartment with an osteochondral defect in the medial femoral condyle Signed: Bill Calles MD Report Verified Date/Time:06/18/2018 14:52:48 Reading Location: [address] Consult Reading Room Procedure Note Interface, External Ris In - 06/18/2018 2:54 PM [facility]PER FINAL REPORT Left foot. HISTORY: Left knee pain. Comparison study: None available. FINDINGS: Three views of the left foot demonstrate chondrocalcinosis. There are moderate to severe chondropathic changes in the medial compartment with an osteochondral defect in the medial femoral condyle measuring approximately 7 mm. Moderate chondropathic changes are seen in the patellofemoral and lateral compartments. No evidence of acute fracture or malalignment is seen. IMPRESSION: Chondrocalcinosis with tricompartmental chondropathic changes, most pronounced in the medial compartment with an osteochondral defect in the medial femoral condyle Signed: Bill Calles MD Report Verified Date/Time: 06/18/2018 14:52:48 Reading Location: [facility] [id number] Consult Reading Room Performing Organization Address City/[facility]/Zipcode Phone Number [facility] * XR spine lumbar 2 or 3 views (06/18/2018 2:14 PM [facility]SP[facility]ER CLIPPER) Specimen Narrative Performed At FINAL REPORT [facility] Lumbar spine. HISTORY: Back pain. COMPARISON STUDY: None available. FINDINGS: Two views lumbar spine demonstrate hardware throughout the lower lumbar spine, extending from L4 through S1. Laminectomy has been performed. A spinal simulation device is seen. No definite acute fracture is seen but the study is of limited diagnostic quality. Degenerative changes are noted. CT scan would be more sensitive. Signed: Bill Calles MD Report Verified Date/Time:06/18/2018 15:03:54 Reading Location: [facility] [id number] Consult Reading Room Procedure Note Interface, External Ris In - 06/18/2018 3:06 PM [facility]ER [facility]IPPER FINAL REPORT Lumbar spine. HISTORY: Back pain. COMPARISON STUDY: None available. FINDINGS: Two views lumbar spine demonstrate hardware throughout the lower lumbar spine, extending from L4 through S1. Laminectomy has been performed. A spinal simulation device is seen. No definite acute fracture is seen but the study is of limited diagnostic quality. Degenerative changes are noted. CT scan would be more sensitive. Signed: Bill Calles MD Report Verified Date/Time: 06/18/2018 15:03:54 Reading Location: [facility] [id number] Consult Reading Room Performing Organization Address City/State/Zipcode Phone Number [facility] * Urinalysis w/Microscopic + Reflex to Culture (06/17/2018 9:46 PM NEWSP[facility]ER CLIPPER) Color, UA Yellow [facility] Clarity, UA Cloudy [facility] Specific [place], UA 1.023 1.001 - 1.035 [facility] pH, UA 5.5 5.0 - 8.0 [facility] Protein, UA 10 mg/dL (A) Negative [facility] Glucose, UA Negative Negative [facility] Ketones, UA Negative Negative [facility] Bilirubin, UA Negative Negative [facility] Blood, UA Moderate (A) Negative [facility] Nitrite, UA Positive (A) Negative [facility] Leukocytes, UA Moderate (A) Negative [facility] Urobilinogen, UA 2.0 (H) 0.2 - 1.0 mg/dL [facility] RBC, UA 80 /HPF [facility] WBC, UA 16 /HPF [facility] Bacteria, UA Occasional [facility] Squam Epithel, UA 1 /HPF [facility] Uric Acid Crystals Occasional [facility] Amorphous Crystals Moderate [facility] Specimen Source [facility] Specimen Urine Performing Organization Address City/State/Zipcode Phone Number [facility] [address] [place] [address] [facility] * Urine culture (06/17/2018 9:46 PM NEWSPAPER CLIPPER) Result >100,000 col/mL Raoultella [facility] ornithinolytica (A) [facility] Specimen Urine Antibiotic Method Susceptibility Organism Amikacin <=2: Susceptible Raoultella ornithinolytica Ampicillin + Sulbactam 4: Susceptible Raoultella ornithinolytica Aztreonam <=1: Susceptible Raoultella ornithinolytica Cefepime <=1: Susceptible Raoultella ornithinolytica Cefoxitin <=4: Susceptible Raoultella ornithinolytica Ceftazidime <=1: Susceptible Raoultella ornithinolytica Ceftriaxone <=1: Susceptible Raoultella ornithinolytica Ertapenem <=0.5: Susceptible Raoultella ornithinolytica Gentamicin <=1: Susceptible Raoultella ornithinolytica Levofloxacin <=0.12: Susceptible Raoultella ornithinolytica Meropenem <=0.25: Susceptible Raoultella ornithinolytica Nitrofurantoin <=16: Susceptible Raoultella ornithinolytica Piperacillin + Tazobactam <=4: Susceptible Raoultella ornithinolytica Tetracycline >=16: Resistant Raoultella ornithinolytica Tobramycin <=1: Susceptible Raoultella ornithinolytica Trimethoprim + Sulfamethoxazole >=320: Resistant Raoultella ornithinolytica Performing Organization Address City/State/Zipcode Phone Number [facility] [address] [place] [address] [facility] * Transesophageal echo (06/17/2018 12:09 PM NEWSPAPER CLIPPER) Ejection Fraction [facility] MKCKESSON CPA Specimen Narrative Performed At Transesophageal Echocardiography Report (RAHEEM) [facility] Demographics [facility] Patient Name VIOLETA HUFF Date of Study 06/17/2018 JENNIFER [id number] GenderFemale Visit Number [id number] RaceJenniferwn [id number] Number [id number] Number Date of Birth1950 Referring Physician Chilango Valle Age68 year(s) Plastic Shaper Ethan Wylie, Physician Fellow DINA Dutta FEL Procedure Type of Study RAHEEM procedure:TRANSESOPHAGEAL ECHO Indications:Atrial fibrillation. Clinical History ANXIETY,A-FIB,CHF,DEPRESSION,RLS Height: 64 inches Weight: 73.03 kg (161 lbs) BSA: 1.78 m^2 BMI: 27.64 kg/m^2 HR: 131 bpm BP: 124/73 mmHg Procedure Informed Consent RAHEEM procedure notes The patient was counseled and informed consent was obtained. Topical and intravenous anesthesia was administered. The esophagus was intubated without difficulty. The probe was passed and all standard echocardiographic views were obtained. IV saline contrast echo examination was performed with RAHEEM. The patient tolerated the procedure well. Procedure Medications - Versed I.V. 6 mg. - Fentanyl I.V. 125 mcg. Summary 1. Normal LV size and function 2. Diastology: Unable to comment due to atrial fibrillation 3. Normal RV size and function 4. Moderate TR. Estimated PASP is 39 + clinically estimated RAP 5. There is no thrombus in the LA or GIAN 6. Focal atheroma is noted 7. DCCV was performed immediately following the procedure. 200J synchronized shock was delivered x 1 with successful cardioversion to sinus rhythm. Previous Study No previous echo is available for comparison. Signature Findings Rhythm/BPAtrial fibrillation with rapid ventricular response. Left Ventricle Normal left ventricular chamber size. Normal wall thickness. Normal overall left ventricular systolic function. Estimation of LV systolic function is less reliable in the presence of tachycardia. No apparent segmental wall motion abnormalities. Left AtriumLA is enlarged but severity assessment is unreliable due to known RAHEEM sector size limitation. LA appendage thrombus is not present . Right VentricleThe right ventricular chamber size and systolic function are within normal limits. RV pacing wire is visualized . Right Atrium RA cavity size is normal . RA pacing wire is visualized . Atrial SeptumA patent foramen ovale (PFO) is not demonstrated by color Doppler. IV saline contrast injection was negative for a PFO (patent foramen ovale) at rest . Aortic Valve Normal AoV structure. A trace of aortic regurgitation. Mitral Valve Normal MV structure. Mild mitral regurgitation. Tricuspid ValveTV structure is normal. Mioderate tricuspid regurgitation. Estimated peak systolic PA pressure is 35-40 mmHg + RA pressure. Pulmonic Valve Normal PV structure. A trace of pulmonary regurgitation. AortaAortic root size (SInus of Valsalva diameter) is normal . Proximal ascending aorta size is normal . There is focal aortic atheroma in the following location: descending thoracic aorta . PericardiumNo pericardial effusion is visualized. Prominent epicardial fat pad noted. IVC/SVC/PA/PV/PleuralThe right upper pulmonary vein (RUPV) is normal . Procedure Note Interface, External Ris In - 06/17/2018 3:20 PM NEWSPAPER CLIPPER Transesophageal Echocardiography Report (RAHEEM) Demographics Patient Name VIOLETA HUFF Date of Study 06/17/2018 JENNIFER Gender Female Visit Number [id number] Race Unknown Room Number 6A09 Number Date of 1950 Referring Physician Chilango Valle Age 68 year(s) Plastic Shaper Ethan Nicole Interpreting Huey Wylie, Physician Fellow DINA Dutta FEL Procedure Type of Study RAHEEM procedure:TRANSESOPHAGEAL ECHO Indications:Atrial fibrillation. Clinical History ANXIETY,A-FIB,CHF,DEPRESSION,RLS Height: 64 inches Weight: 73.03 kg (161 lbs) BSA: 1.78 m^2 BMI: 27.64 kg/m^2 HR: 131 bpm BP: 124/73 mmHg Procedure Informed Consent RAHEEM procedure notes The patient was counseled and informed consent was obtained. Topical and intravenous anesthesia was administered. The esophagus was intubated without difficulty. The probe was passed and all standard echocardiographic views were obtained. IV saline contrast echo examination was performed with RAHEEM. The patient tolerated the procedure well. Procedure Medications - Versed I.V. 6 mg. - Fentanyl I.V. 125 mcg. Summary 1. Normal LV size and function 2. Diastology: Unable to comment due to atrial fibrillation 3. Normal RV size and function 4. Moderate TR. Estimated PASP is 39 + clinically estimated RAP 5. There is no thrombus in the LA or GIAN 6. Focal atheroma is noted 7. DCCV was performed immediately following the procedure. 200J synchronized shock was delivered x 1 with successful cardioversion to sinus rhythm. Previous Study No previous echo is available for comparison. Signature Findings Rhythm/BP Atrial fibrillation with rapid ventricular response. Left Ventricle Normal left ventricular chamber size. Normal wall thickness. Normal overall left ventricular systolic function. Estimation of LV systolic function is less reliable in the presence of tachycardia. No apparent segmental wall motion abnormalities. Left Atrium LA is enlarged but severity assessment is unreliable due to known RAHEEM sector size limitation. LA appendage thrombus is not present . Right Ventricle The right ventricular chamber size and systolic function are within normal limits. RV pacing wire is visualized . Right Atrium RA cavity size is normal . RA pacing wire is visualized . Atrial Septum A patent foramen ovale (PFO) is not demonstrated by color Doppler. IV saline contrast injection was negative for a PFO (patent foramen ovale) at rest . Aortic Valve Normal AoV structure. A trace of aortic regurgitation. Mitral Valve Normal MV structure. Mild mitral regurgitation. Tricuspid Valve TV structure is normal. Mioderate tricuspid regurgitation. Estimated peak systolic PA pressure is 35-40 mmHg + RA pressure. Pulmonic Valve Normal PV structure. A trace of pulmonary regurgitation. Aorta Aortic root size (SInus of Valsalva diameter) is normal . Proximal ascending aorta size is normal . There is focal aortic atheroma in the following location: descending thoracic aorta . Pericardium No pericardial effusion is visualized. Prominent epicardial fat pad noted. IVC/SVC/PA/PV/Pleural The right upper pulmonary vein (RUPV) is normal . Performing Organization Address City/[facility]/Zipcode Phone Number [facility] [employer] [facility] * POC-Glucose meter (06/17/2018 11:31 AM NEWSPAPER CLIPPER) Only the most recent of 2 results within the time period is included. POC-Glucose Meter 190 (H)Comment: TESTED AT 70 - 110 mg/dL [facility] [address] [facility] [address] Specimen Blood Performing Organization Address City/[facility]/Zipcode Phone Number [facility] [address] [place] [address] [facility] * TRANSFUSION SERVICE REPORT - SCAN (06/16/2018 6:00 PM NEWSPAPER CLIPPER) Narrative Performed At * 2D Echo W/Doppler(CW/PW/Color) (06/16/2018 1:50 AM NEWSPAPER CLIPPER) Ejection Fraction [facility] [employer] [facility] Specimen Narrative Performed At Transthoracic Echocardiography Report (TTE) [facility] [employer] Demographics [facility] Patient NameYecenia HUFF of Study06/16/2018 JENNIFER Female Visit [id number] Unknown Room [id number] Number Date of 1950ReferringDINA Morgan Physician Age 68 year(s)SonographerSleti Wesley RDCS, RVT Interpreting Physician YasirMD Procedure Type of Study TTE procedure:2DECHO W DOPPLER(CW/PW/COLOR) (NARENDRA) Indications:Sustained or non sustained Afib, SVT or VT. Clinical History afib, chf HGB 10.5 HCT 35.4 % Contrast Medium: Definity. Amount - 2 ml Height: 64 inches Weight: 73.03 kg (161 lbs) BSA: 1.78 m^2 BMI: 27.64 kg/m^2 HR: 105 bpm BP: 104/72 mmHg Summary Normal left ventricular chamber size. Normal wall thickness. Normal overall left ventricular systolic function. No apparent segmental wall motion abnormalities. Estimated LVEF by qualitative assessment is normal (>60%) . Degree of diastolic dysfunction (LAP assessment) is inconclusive due to arrhythmia . Mild to moderate tricuspid regurgitation. Estimated peak systolic PA pressure is 30-35 mmHg . No pericardial effusion is visualized. Signature Findings Left Ventricle Normal left ventricular chamber size. Normal wall thickness. Normal overall left ventricular systolic function. No apparent segmental wall motion abnormalities. Estimated LVEF by qualitative assessment is normal (>60%) . Degree of diastolic dysfunction (LAP assessment) is inconclusive due to arrhythmia . Left AtriumLA size is mildly enlarged (35-41 ml/m2) . Right VentricleThe right ventricular chamber size and systolic function are within normal limits. RV pacing wire is visualized . Right Atrium RA size is mildly dilated. Aortic Valve Mild AoV cusp thickening. Mitral Valve Mild MV leaflet thickening. Tricuspid ValveTV structure is normal. Mild to moderate tricuspid regurgitation. Estimated peak systolic PA pressure is 30-35 mmHg . Pulmonic Valve PV is not well visualized; function appears normal by Doppler visualized. AortaAortic root size (SInus of Valsalva diameter) is normal . PericardiumNo pericardial effusion is visualized. IVC/SVC/PA/PV/PleuralThe estimated RA pressure by IVC dynamics 5-10mmHg . Chambers/Structures Left Atrium LA Dimension: 4.35 cmLA Area: 23.12 cm^2 LA Volume: 62.13 ml LA Vol. Index: 35 ml/m^2 Left Ventricle LVIDd: 4.54 cm LVIDs: 2.38 cm LV Septum Diastolic: 0.77 cm LV PW Diastolic: 0.84 cm LV FS: 47.6 % Aorta Ao Root S of Dorina.: 2.56 cm Doppler/Quantitative Measurements LVOT Peak Velocity: 0.96 m/s Peak Gradient: 3.72 mmHg Mean Velocity: 0.57 m/s Mean Gradient: 1.66 mmHg LVOT VTI: 17.92 cm Procedure Note Interface, External Ris In - 06/16/2018 9:13 AM NEWSPAPER CLIPPER Transthoracic Echocardiography Report (TTE) Demographics Patient Name VIOLETA HUFF Date of Study 06/16/2018 JENNIFER Gender Female Visit Number [id number] Race Unknown Room Number 6A09 Number Date of 1950 Referring DINA Morgan Physician Age 68 year(s) Plastic Shaper Judith Wesley RDCS, RVT Interpreting Keyon Conley Physician Procedure Type of Study TTE procedure:2DECHO W DOPPLER(CW/PW/COLOR) (NARENDRA) Indications:Sustained or non sustained Afib, SVT or VT. Clinical History afib, chf HGB 10.5 HCT 35.4 % Contrast Medium: Definity. Amount - 2 ml Height: 64 inches Weight: 73.03 kg (161 lbs) BSA: 1.78 m^2 BMI: 27.64 kg/m^2 HR: 105 bpm BP: 104/72 mmHg Summary Normal left ventricular chamber size. Normal wall thickness. Normal overall left ventricular systolic function. No apparent segmental wall motion abnormalities. Estimated LVEF by qualitative assessment is normal (>60%) . Degree of diastolic dysfunction (LAP assessment) is inconclusive due to arrhythmia . Mild to moderate tricuspid regurgitation. Estimated peak systolic PA pressure is 30-35 mmHg . No pericardial effusion is visualized. Signature Findings Left Ventricle Normal left ventricular chamber size. Normal wall thickness. Normal overall left ventricular systolic function. No apparent segmental wall motion abnormalities. Estimated LVEF by qualitative assessment is normal (>60%) . Degree of diastolic dysfunction (LAP assessment) is inconclusive due to arrhythmia . Left Atrium LA size is mildly enlarged (35-41 ml/m2) . Right Ventricle The right ventricular chamber size and systolic function are within normal limits. RV pacing wire is visualized . Right Atrium RA size is mildly dilated. Aortic Valve Mild AoV cusp thickening. Mitral Valve Mild MV leaflet thickening. Tricuspid Valve TV structure is normal. Mild to moderate tricuspid regurgitation. Estimated peak systolic PA pressure is 30-35 mmHg . Pulmonic Valve PV is not well visualized; function appears normal by Doppler visualized. Aorta Aortic root size (SInus of Valsalva diameter) is normal . Pericardium No pericardial effusion is visualized. IVC/SVC/PA/PV/Pleural The estimated RA pressure by IVC dynamics 5-10mmHg . Chambers/Structures Left Atrium LA Dimension: 4.35 cm LA Area: 23.12 cm^2 LA Volume: 62.13 ml LA Vol. Index: 35 ml/m^2 Left Ventricle LVIDd: 4.54 cm LVIDs: 2.38 cm LV Septum Diastolic: 0.77 cm LV PW Diastolic: 0.84 cm LV FS: 47.6 % Aorta Ao Root S of Dorina.: 2.56 cm Doppler/Quantitative Measurements LVOT Peak Velocity: 0.96 m/s Peak Gradient: 3.72 mmHg Mean Velocity: 0.57 m/s Mean Gradient: 1.66 mmHg LVOT VTI: 17.92 cm Performing Organization Address City/State/Zipcode Phone Number [facility] * Troponin I (06/15/2018 3:03 PM NEWSPAPER CLIPPER) Only the most recent of 2 results within the time period is included. Troponin I <0.01 0.00 - 0.03 ng/mL [facility] Specimen Blood Narrative Performed At Troponin I (TnI) levels must be interpreted in the context of the presenting [facility] symptoms and the clinical findings. Elevated TnI levels indicate myocardial [facility] damage, but are not specific for ischemic heart disease. Elevated TnI levels are seen in patients with other cardiac conditions (including myocarditis and congestive heart failure), and slight TnI elevations occur in patients with other conditions, including sepsis, renal failure, acidosis, acute neurological disease, and persistent tachyarrhythmia. Performing Organization Address [facility] Centercode Phone Number [address] * ABORH, manual (06/15/2018 5:29 AM NEWSPAPER CLIPPER) ABO Grouping O [facility] Rh Factor POS [facility] Specimen Blood Performing Organization Address City/[facility] Centercode Phone Number [address] * Type and screen, automated (06/15/2018 4:40 AM NEWSPAPER CLIPPER) ABO/RH AUTOMATED (BEAKER) O POSITIVE [facility] Ab Scrn NEGATIVE [facility] Specimen Blood Performing Organization Address [facility] Centercode Phone Number [address] * TSH/Free T4 If Indicated (06/15/2018 4:40 AM NEWSPAPER CLIPPER) TSH 4.32 0.35 - 4.94 uIU/mL [facility] Specimen Blood Performing Organization Address City/[facility] Centercode Phone Number [address] [address] [facility] * aPTT (06/15/2018 4:40 AM NEWSPAPER CLIPPER) PTT 35.5 22.5 - 36.0 seconds [facility] Specimen Blood Performing Organization Address [facility] Centercoor Phone Number [address] [address] [phone] * Prothrombin time/INR (06/15/2018 4:40 AM NEWSPAPER CLIPPER) Protime 18.1 (H) 11.7 - 14.7 seconds [facility] INR 1.5 <=5.9 [facility] Specimen Blood Narrative Performed At RECOMMENDED COUMADIN/WARFARIN INR THERAPY RANGES [facility] STANDARD DOSE: 2.0 - 3.0 Includes: PROPHYLAXIS for venous thrombosis, [facility] systemic embolization; TREATMENT for venous thrombosis and/or pulmonary embolus. HIGH RISK: Target INR is 2.5-3.5 for patients with mechanical heart valves. Performing Organization Address City/[facility] Centercode Phone Number [address] [address] [phone] [place] [address] * B-type Natriuretic Factor (BNP) (06/15/2018 4:40 AM NEWSPAPER CLIPPER) BNP 1,051 (H) 0 - 100 pg/mL [facility] Specimen Blood Performing Organization Address City/[facility]/Zipcode Phone Number [address] [address] [facility] * Hemoglobin A1c (06/15/2018 4:40 AM NEWSPAPER CLIPPER) Hemoglobin A1C 6.5 (H) 4.3 - 6.1 % [facility] Specimen Blood Performing Organization Address City/[facility] Centercode Phone Number [facility] [address] [place] [address] [facility] * Lipid panel (06/15/2018 4:40 AM NEWSPAPER CLIPPER) Triglycerides 53 mg/dL [facility] Cholesterol 133 mg/dL [facility] HDL 38 mg/dL [facility] LDL Calculated 84 mg/dL [facility] Specimen Blood Narrative Performed At Triglyceride Reference Range: [facility] Low Risk <150 [facility] [id number] High Risk 200-499 Very High Risk>=500 Cholesterol Reference Range: Low Risk <200 [id number] High Risk>240 HDL Cholesterol Reference Range: Low Risk >=60 High Risk <40 LDL Cholesterol Reference Range: Optimal<100 Near [id number] Very High >=190 Performing Organization Address City/[facility] Centercode Phone Number [facility] [address] [place], [place] [phone] [facility] * Comprehensive metabolic panel (06/15/2018 4:40 AM NEWSPAPER CLIPPER) Protein, Total 6.5 6.0 - 8.3 gm/dL [facility] Albumin 3.9 3.5 - 5.0 g/dL [facility] Alkaline Phosphatase 119 40 - 150 U/L [facility] Total Bilirubin 0.7 0.2 - 1.2 mg/dL [facility] Sodium 143 136 - 145 meq/L [facility] Potassium 4.0 3.5 - 5.1 meq/L [facility] Chloride 110 (H) 98 - 107 meq/L [facility] CO2 23 22 - 29 meq/L [facility] BUN 12 7 - 21 mg/dL [facility] Creatinine 0.79 0.57 - 1.25 mg/dL [facility] Glucose 107 (H) 70 - 105 mg/dL [facility] Calcium 9.1 8.4 - 10.2 mg/dL [facility] AST 39 (H) 5 - 34 U/L [facility] ALT 28 6 - 55 U/L [facility] EGFR 72Comment: ESTIMATED GFR IS mL/min/1.73 sq m [facility] NOT ACCURATE CREATININE [facility] CLEARANCE IN PREDICTING GLOMERULAR FILTRATION RATE. ESTIMATED GFR IS NOT APPLICABLE FOR DIALYSIS PATIENTS. Specimen Blood Performing Organization Address City/State/Zipcode Phone Number [address] [address] [facility] after 01/19/2018 Insurance Payer Benefit Subscriber ID Type Phone Address Plan / Group [facility] - [employer]/MEDIC xxxxxxxxx MEDICARE MGD CARE ARE COMPLETE Advance Directives For more information, please contact: [address] [address] Date Inactivated Comments Code Status Date Activated 06/21/2018 6:52 PM Full Code 06/15/2018 3:00 AM This code status was determined by: Patient
--- OUTSIDE RECORDS SUMMARY | 2019-01-20 12:25 | XMS REPORT | Continuity of Care Document ---
Author Author [employer] Organization [employer] Address Unknown Phone Unavailable Care Team Providers Care Employee Relations Administrator Name Role Phone [facility] [employer] Unavailable Unavailable Problems Problem Status Onset Date Classification Date Reported Comments Source Bradycardia Active Problem 06/15/2018 [facility] Chest pain Active Problem 06/15/2018 [facility] Sick sinus syndrome Active Problem 06/15/2018 [facility] Medications Medication Details Route Status Patient Instructions Ordering Provider Order Date Source Bupropion Hcl (Bupropion Xl) 150 Mg Tab.er.24h, 150 Mg Oral Twice A Day Active 04/28/2018 [facility] Digoxin 250 Mcg Tablet, 250 Mcg Oral Daily Active 04/24/2018 [facility] Potassium Chloride 8 Meq Tablet.er, 8 Meq Oral Daily Active 04/24/2018 [facility] Amlodipine Besylate 5 Mg Tablet Daily Active [facility] Bupropion Hcl (Bupropion Xl) 150 Mg Tab.er.24h Twice A Day Active [facility] Citalopram Hydrobromide (Citalopram Hbr) 20 Mg Tablet Daily Active [facility] Digoxin 250 Mcg Tablet Daily Active [facility] Potassium Chloride 8 Meq Tablet.er Daily Active [facility] Pramipexole Di-Hcl (Pramipexole Dihydrochloride) 1.5 Mg Tablet Three Times A Day Active [facility] Rivaroxaban (Xarelto) 20 Mg Tablet Daily Active [facility] Tizanidine Hcl 4 Mg Tablet Bedtime Active [facility] Zolpidem Tartrate 10 Mg Tablet Bedtime as needed for Sleep Active [facility] Amlodipine Besylate 5 Mg Tablet Bedtime Active [facility] Aspirin (Aspir 81) 81 Mg Tablet.dr Daily Active [facility] Citalopram Hydrobromide (Citalopram Hbr) 20 Mg Tablet Daily Active [facility] Furosemide 40 Mg Tablet Daily Active [facility] Hydrocodone Bit/Acetaminophen ([place] 7.5-325 Tablet) 1 Each Tablet Twice A Day for Pain Active [facility] Metoprolol Succinate 50 Mg Tab.er.24h Bedtime Active [facility] Pramipexole Di-Hcl (Pramipexole Dihydrochloride) 1.5 Mg Tablet Three Times A Day Active [facility] Rivaroxaban (Xarelto) 20 Mg Tablet Daily Active [facility] Tizanidine Hcl 4 Mg Tablet Bedtime Active [facility] Zolpidem Tartrate 10 Mg Tablet Bedtime as needed for Sleep Active [facility] Allergies, Adverse Reactions, Alerts Substance Category Reaction Severity Reaction type Status Date Reported Comments Source No Known Drug Allergies Unknown Allergy to Substance Active 12/02/2017 [facility] Immunizations No Data Provided for This Section Results Order Name Results Value Reference Range Date Interpretation Comments Source Urine color determination YELLOW YELLOW 06/14/2018 [facility] Urine clarity CLEAR CLEAR 06/14/2018 [facility] Specific gravity of Urine by Test strip 1.005 1.010 - 1.025 06/14/2018 [facility] Urine pH measurement by automated test strip 5 5 - 7 06/14/2018 [facility] Urine leukocyte esterase detection by dipstick NEGATIVE NEGATIVE 06/14/2018 [facility] Urine nitrite detection NEGATIVE NEGATIVE 06/14/2018 [facility] Urine protein measurement by test strip (mass/volume) NEGATIVE NEGATIVE 06/14/2018 [facility] Urine glucose detection NEGATIVE NEGATIVE 06/14/2018 [facility] Urine ketones detection by automated test strip NEGATIVE NEGATIVE 06/14/2018 [facility] Urine urobilinogen measurement by test strip (mass/volume) 0.2 0.2 - 1 06/14/2018 [facility] Urine total bilirubin measurement (mass/volume) NEGATIVE NEGATIVE 06/14/2018 [facility] Urine erythrocytes detection NEGATIVE NEGATIVE 06/14/2018 [facility] Automated urine sediment leukocyte count by microscopy (number/high power field) 0-5 0 - 5 06/14/2018 [facility] Erythrocytes detection in urine sediment by light microscopy 0-5 0 - 5 06/14/2018 [facility] Bacteria detection in urine sediment by light microscopy NONE NONE 06/14/2018 [facility] Epithelial cells detection in urine sediment by light microscopy FEW NONE 06/14/2018 [facility] Blood leukocytes automated count (number/volume) 11.34 4.8 - 10.8 06/14/2018 [facility] Blood erythrocytes automated count (number/volume) 4.52 3.6 - 5.1 06/14/2018 [facility] Blood hemoglobin measurement (moles/volume) 11.0 12.0 - 16.0 06/14/2018 [facility] Automated blood hematocrit (volume fraction) 36.5 34.2 - 44.1 06/14/2018 [facility] Automated erythrocyte mean corpuscular volume 80.8 81 - 99 06/14/2018 [facility] Automated erythrocyte mean corpuscular hemoglobin (mass per erythrocyte) 24.3 28 - 32 06/14/2018 [facility] Automated erythrocyte mean corpuscular hemoglobin concentration measurement (mass/volume) 30.1 31 - 35 06/14/2018 [facility] RDW BldCo-Rto 17.1 11.7 - 14.4 06/14/2018 [facility] Automated blood platelet count (count/volume) 302 140 - 360 06/14/2018 [facility] Automated blood segmented neutrophil count as percentage of total leukocytes 71.7 38.7 - 80.0 06/14/2018 [facility] Automated blood lymphocyte count as percentage ot total leukocytes 20.0 18.0 - 39.1 06/14/2018 [facility] Automated blood monocyte count as percentage of total leukocytes 6.4 4.4 - 11.3 06/14/2018 [facility] Automated blood eosinophil count as percentage of total leukocytes 0.9 0.0 - 6.0 06/14/2018 [facility] Automated blood basophil count as percentage of total leukocytes 0.6 0.0 - 1.0 06/14/2018 [facility] IM GRANULOCYTES % 0.4 0.0 - 1.0 06/14/2018 [facility] Automated blood neutrophil count 8.1 2.1 - 6.9 06/14/2018 [facility] Blood lymphocytes count (number/volume) 2.3 1.0 - 3.2 06/14/2018 [facility] Blood monocytes automated count (number/volume) 0.7 0.2 - 0.8 06/14/2018 [facility] Automated blood eosinophil count 0.1 0.0 - 0.4 06/14/2018 [facility] Automated blood basophil count (count/volume) 0.1 0.0 - 0.1 06/14/2018 [facility] Absolute Immature Granulocyte (auto 0.04 0 - 0.1 06/14/2018 [facility] Serum or plasma sodium measurement (moles/volume) 142 136 - 145 06/14/2018 [facility] Serum or plasma potassium measurement (moles/volume) 4.2 3.5 - 5.1 06/14/2018 [facility] Serum or plasma chloride measurement (moles/volume) 108 98 - 107 06/14/2018 [facility] Serum or plasma carbon dioxide, total measurement (moles/volume) 19 22 - 29 06/14/2018 [facility] Serum or plasma anion gap 19.2 8 - 16 06/14/2018 [facility] Serum or plasma urea nitrogen measurement (mass/volume) 13 7 - 26 06/14/2018 [facility] Serum or plasma creatinine measurement (mass/volume) 0.77 0.57 - 1.11 06/14/2018 [facility] Serum or plasma urea nitrogen/creatinine mass ratio 17 6 - 25 06/14/2018 [facility] Estimated glomerular filtration rate (GFR) determination > 60 60 06/14/2018 [facility] Glucose measurement 84 74 - 118 06/14/2018 [facility] Serum or plasma calcium measurement (mass/volume) 9.1 8.4 - 10.2 06/14/2018 [facility] Serum or plasma total bilirubin measurement (mass/volume) 0.5 0.2 - 1.2 06/14/2018 [facility] Aspartate Amino Transf (AST/SGOT) 45 5 - 34 06/14/2018 [facility] Serum or plasma alanine aminotransferase measurement (enzymatic activity/volume) 30 0 - 55 06/14/2018 [facility] Serum or plasma protein measurement (mass/volume) 6.7 6.5 - 8.1 06/14/2018 [facility] Serum or plasma albumin measurement (mass/volume) 3.8 3.5 - 5.0 06/14/2018 [facility] Plasma globulin measurement (mass/volume) 2.9 2.3 - 3.5 06/14/2018 [facility] Serum or plasma albumin/globulin mass ratio 1.3 0.8 - 2.0 06/14/2018 [facility] Serum or plasma alkaline phosphatase measurement (enzymatic activity/volume) 133 40 - 150 06/14/2018 [facility] BNP Bld-mCnc 625.9 0 - 100 06/14/2018 [facility] Serum or plasma creatine kinase measurement (enzymatic activity/volume) 273 29 - 168 06/14/2018 [facility] Serum or plasma creatine kinase MB measurement (mass/volume) 1.80 0 - 5.0 06/14/2018 [facility] Troponin I measurement by highly sensitive enzyme immunoassay < 0.001 0 - 0.300 06/14/2018 [facility] Serum or plasma lipase measurement (enzymatic activity/volume) 22 8 - 78 04/03/2018 [facility] Automated blood basophil count (count/volume) Automated blood basophil count (count/volume) 0.0 0.0 - 0.1 12/04/2017 [facility] Automated blood basophil count as percentage of total leukocytes Automated blood basophil count as percentage of total leukocytes 0.3 0.0 - 1.0 12/04/2017 [facility] Automated blood eosinophil count Automated blood eosinophil count 0.2 0.0 - 0.4 12/04/2017 [facility] Automated blood eosinophil count as percentage of total leukocytes Automated blood eosinophil count as percentage of total leukocytes 1.5 0.0 - 6.0 12/04/2017 [facility] Automated blood hematocrit (volume fraction) Automated blood hematocrit (volume fraction) 28.9 34.2 - 44.1 12/04/2017 [facility] Automated blood lymphocyte count as percentage ot total leukocytes Automated blood lymphocyte count as percentage ot total leukocytes 20.2 18.0 - 39.1 12/04/2017 [facility] Automated blood monocyte count as percentage of total leukocytes Automated blood monocyte count as percentage of total leukocytes 6.9 4.4 - 11.3 12/04/2017 [facility] Automated blood neutrophil count Automated blood neutrophil count 8.2 2.1 - 6.9 12/04/2017 [facility] Automated blood platelet count (count/volume) Automated blood platelet count (count/volume) 258 140 - 360 12/04/2017 [facility] Automated blood segmented neutrophil count as percentage of total leukocytes Automated blood segmented neutrophil count as percentage of total leukocytes 70.8 38.7 - 80.0 12/04/2017 [facility] Automated erythrocyte mean corpuscular hemoglobin (mass per erythrocyte) Automated erythrocyte mean corpuscular hemoglobin (mass per erythrocyte) 27.2 28 - 32 12/04/2017 [facility] Automated erythrocyte mean corpuscular hemoglobin concentration measurement (mass/volume) Automated erythrocyte mean corpuscular hemoglobin concentration measurement (mass/volume) 31.8 31 - 35 12/04/2017 [facility] Automated erythrocyte mean corpuscular volume Automated erythrocyte mean corpuscular volume 85.5 81 - 99 12/04/2017 [facility] Blood erythrocytes automated count (number/volume) Blood erythrocytes automated count (number/volume) 3.38 3.6 - 5.1 12/04/2017 [facility] Blood hemoglobin measurement (moles/volume) Blood hemoglobin measurement (moles/volume) 9.2 12.0 - 16.0 12/04/2017 [facility] Blood leukocytes automated count (number/volume) Blood leukocytes automated count (number/volume) 11.58 4.8 - 10.8 12/04/2017 [facility] Blood lymphocytes count (number/volume) Blood lymphocytes count (number/volume) 2.3 1.0 - 3.2 12/04/2017 [facility] Blood monocytes automated count (number/volume) Blood monocytes automated count (number/volume) 0.8 0.2 - 0.8 12/04/2017 [facility] Estimated glomerular filtration rate (GFR) determination Estimated glomerular filtration rate (GFR) determination >60 60 12/04/2017 [facility] Glucose measurement Glucose measurement 88 74 - 118 12/04/2017 [facility] Serum or plasma anion gap Serum or plasma anion gap 12.0 8 - 16 12/04/2017 [facility] Serum or plasma calcium measurement (mass/volume) Serum or plasma calcium measurement (mass/volume) 8.7 8.4 - 10.2 12/04/2017 [facility] Serum or plasma carbon dioxide, total measurement (moles/volume) Serum or plasma carbon dioxide, total measurement (moles/volume) 24 22 - 29 12/04/2017 [facility] Serum or plasma chloride measurement (moles/volume) Serum or plasma chloride measurement (moles/volume) 106 98 - 107 12/04/2017 [facility] Serum or plasma creatinine measurement (mass/volume) Serum or plasma creatinine measurement (mass/volume) 0.80 0.57 - 1.11 12/04/2017 [facility] Serum or plasma potassium measurement (moles/volume) Serum or plasma potassium measurement (moles/volume) 4.0 3.5 - 5.1 12/04/2017 [facility] Serum or plasma sodium measurement (moles/volume) Serum or plasma sodium measurement (moles/volume) 138 136 - 145 12/04/2017 [facility] Serum or plasma urea nitrogen measurement (mass/volume) Serum or plasma urea nitrogen measurement (mass/volume) 14 7 - 26 12/04/2017 [facility] Serum or plasma urea nitrogen/creatinine mass ratio Serum or plasma urea nitrogen/creatinine mass ratio 18 6 - 25 12/04/2017 [facility] Red Cell Distribution Width 17.7 11.7 - 14.4 12/04/2017 [facility] IM GRANULOCYTES % 0.3 0.0 - 1.0 12/04/2017 [facility] Absolute Immature Granulocyte (auto 0.03 0 - 0.1 12/04/2017 [facility] Prothrombin time (PT) in platelet poor plasma by coagulation assay 20.6 11.9 - 14.5 12/03/2017 [facility] INR in Platelet poor plasma by Coagulation assay 1.92 12/03/2017 [facility] Activated partial thromboplastin time (aPTT) in platelet poor plasma bycoagulation assay 42.3 23.8 - 35.5 12/03/2017 [facility] Serum or plasma triglyceride measurement (mass/volume) 105 0 - 149 12/03/2017 [facility] Serum or plasma cholesterol measurement (mass/volume) 153 0 - 199 12/03/2017 [facility] Serum or plasma cholesterol in LDL measurement (mass/volume) 88 60 - 130 12/03/2017 [facility] Serum or plasma cholesterol in HDL measurement (mass/volume) 44 40 - 60 12/03/2017 [facility] Serum or plasma total cholesterol/cholesterol in HDL mass ratio 3.5 3.0 - 3.6 12/03/2017 [facility] Activated partial thromboplastin time (aPTT) in platelet poor plasma bycoagulation assay Activated partial thromboplastin time (aPTT) in platelet poor plasma bycoagulation assay 42.3 23.8 - 35.5 12/03/2017 [facility] INR in Platelet poor plasma by Coagulation assay INR in Platelet poor plasma by Coagulation assay 1.92 12/03/2017 [facility] Prothrombin time (PT) in platelet poor plasma by coagulation assay Prothrombin time (PT) in platelet poor plasma by coagulation assay 20.6 11.9 - 14.5 12/03/2017 [facility] Serum or plasma cholesterol in HDL measurement (mass/volume) Serum or plasma cholesterol in HDL measurement (mass/volume) 44 40 - 60 12/03/2017 [facility] Serum or plasma cholesterol in LDL measurement (mass/volume) Serum or plasma cholesterol in LDL measurement (mass/volume) 88 60 - 130 12/03/2017 [facility] Serum or plasma cholesterol measurement (mass/volume) Serum or plasma cholesterol measurement (mass/volume) 153 0 - 199 12/03/2017 [facility] Serum or plasma creatine kinase MB measurement (mass/volume) Serum or plasma creatine kinase MB measurement (mass/volume) 0.50 0 - 5.0 12/03/2017 [facility] Serum or plasma creatine kinase measurement (enzymatic activity/volume) Serum or plasma creatine kinase measurement (enzymatic activity/volume) 39 29 - 168 12/03/2017 [facility] Serum or plasma total cholesterol/cholesterol in HDL mass ratio Serum or plasma total cholesterol/cholesterol in HDL mass ratio 3.5 3.0 - 3.6 12/03/2017 [facility] Serum or plasma triglyceride measurement (mass/volume) Serum or plasma triglyceride measurement (mass/volume) 105 0 - 149 12/03/2017 [facility] Troponin I measurement by highly sensitive enzyme immunoassay Troponin I measurement by highly sensitive enzyme immunoassay <0.001 0 - 0.300 12/03/2017 [facility] Serum or plasma thyrotropin measurement by detection limit <=0.005 miu/l (units/volume) 1.599 0.350 - 4.940 12/03/2017 [facility] Serum or plasma thyrotropin measurement by detection limit <=0.005 miu/l (units/volume) Serum or plasma thyrotropin measurement by detection limit <=0.005 miu/l (units/volume) 1.599 0.350 - 4.940 12/03/2017 [facility] Serum or plasma digoxin measurement (mass/volume) 1.06 0.8 - 2.0 12/02/2017 [facility] Plasma globulin measurement (mass/volume) Plasma globulin measurement (mass/volume) 3.5 2.3 - 3.5 12/02/2017 [facility] Serum or plasma alanine aminotransferase measurement (enzymatic activity/volume) Serum or plasma alanine aminotransferase measurement (enzymatic activity/volume) 16 0 - 55 12/02/2017 [facility] Serum or plasma albumin measurement (mass/volume) Serum or plasma albumin measurement (mass/volume) 3.3 3.5 - 5.0 12/02/2017 [facility] Serum or plasma albumin/globulin mass ratio Serum or plasma albumin/globulin mass ratio 0.9 0.8 - 2.0 12/02/2017 [facility] Serum or plasma alkaline phosphatase measurement (enzymatic activity/volume) Serum or plasma alkaline phosphatase measurement (enzymatic activity/volume) 119 40 - 150 12/02/2017 [facility] Serum or plasma digoxin measurement (mass/volume) Serum or plasma digoxin measurement (mass/volume) 1.06 0.8 - 2.0 12/02/2017 [facility] Serum or plasma protein measurement (mass/volume) Serum or plasma protein measurement (mass/volume) 6.8 6.5 - 8.1 12/02/2017 [facility] Serum or plasma total bilirubin measurement (mass/volume) Serum or plasma total bilirubin measurement (mass/volume) 0.4 0.2 - 1.2 12/02/2017 [facility] Aspartate Amino Transf (AST/SGOT) 26 5 - 34 12/02/2017 [facility] B-Type Natriuretic Peptide 219.2 0 - 100 12/02/2017 [facility] Mucus detection in urine sediment by light microscopy FEW RARE 12/02/2017 [facility] Automated urine sediment leukocyte count by microscopy (number/high power field) Automated urine sediment leukocyte count by microscopy (number/high power field) <10 0 - 5 12/02/2017 [facility] Bacteria detection in urine sediment by light microscopy Bacteria detection in urine sediment by light microscopy MANY NONE 12/02/2017 [facility] Epithelial cells detection in urine sediment by light microscopy Epithelial cells detection in urine sediment by light microscopy MODERATE NONE 12/02/2017 [facility] Erythrocytes detection in urine sediment by light microscopy Erythrocytes detection in urine sediment by light microscopy <5 0 - 5 12/02/2017 [facility] Mucus detection in urine sediment by light microscopy Mucus detection in urine sediment by light microscopy FEW RARE 12/02/2017 [facility] Specific gravity of Urine by Test strip Specific gravity of Urine by Test strip 1.020 1.010 - 1.025 12/02/2017 [facility] Urine clarity Urine clarity SL CLOUDY CLEAR 12/02/2017 [facility] Urine color determination Urine color determination YELLOW YELLOW 12/02/2017 [facility] Urine erythrocytes detection Urine erythrocytes detection NEGATIVE NEGATIVE 12/02/2017 [facility] Urine glucose detection Urine glucose detection NEGATIVE NEGATIVE 12/02/2017 [facility] Urine ketones detection by automated test strip Urine ketones detection by automated test strip NEGATIVE NEGATIVE 12/02/2017 [facility] Urine leukocyte esterase detection by dipstick Urine leukocyte esterase detection by dipstick 1+ NEGATIVE 12/02/2017 [facility] Urine nitrite detection Urine nitrite detection NEGATIVE NEGATIVE 12/02/2017 [facility] Urine pH measurement by automated test strip Urine pH measurement by automated test strip 6 5 - 7 12/02/2017 [facility] Urine protein measurement by test strip (mass/volume) Urine protein measurement by test strip (mass/volume) NEGATIVE NEGATIVE 12/02/2017 [facility] Urine total bilirubin measurement (mass/volume) Urine total bilirubin measurement (mass/volume) NEGATIVE NEGATIVE 12/02/2017 [facility] Urine urobilinogen measurement by test strip (mass/volume) Urine urobilinogen measurement by test strip (mass/volume) 0.2 0.2 - 1 12/02/2017 [facility] Pathology Reports No Data Provided for This Section Diagnostic Reports No Data Provided for This Section Consultation Notes No Data Provided for This Section Discharge Summaries No Data Provided for This Section History and Physicals No Data Provided for This Section Vital Signs No Data Provided for This Section Encounters Location Location Details Encounter Type Encounter Number Reason For Visit Attending Provider ADM Date DC Date Status Source Discharged Inpatient (obs) [id number] ANTONI NEWSOME MD 12/03/2017 12/04/2017 [facility] Departed Emergency Room [id number] MATEO TIPTON MD 04/03/2018 04/03/2018 [facility] Registered Clinic [id number] LIVAN URIARTE MD 04/15/2018 [facility] [id number] DERICK TIPTON MD 04/28/2018 [facility] Departed Emergency Room [id number] MATEO TIPTON MD 06/14/2018 06/15/2018 [facility] Procedures Procedure Code Date Perfomer Comments Source Computed tomography of brain without radiopaque contrast [id number] 06/14/2018 [facility] [facility] COLONOSCOPY AND BIOPSY [id number] 04/28/2018 [facility] COLONOSCOPY W/LESION REMOVAL [id number] 04/28/2018 [facility] X-ray of chest, two views [id number] 04/15/2018 [facility] Computed tomography of abdomen and pelvis with contrast [id number] 04/03/2018 [facility] INSRT HEART PM ATRIAL & VENT [id number] 12/03/2017 [facility] REMOVE PAT-ACTIVE HT RECORD [id number] 12/03/2017 [facility] Pmkr, dual, rate-resp C1785 12/03/2017 [facility] Lead, pmkr, other than trans [id number] 12/03/2017 [facility] X-ray of chest, single view [id number] 12/02/2017 [facility] Assessment and Plan No Data Provided for This Section Plan of Care Plan of Care Date Source Discharge Date 06/15/18 4:14am Disposition TRANS TO OTHER [facility] Condition at Discharge Stable Forms Provided Work/School Excuse Prescriptions See Medication Section Referrals LIVAN URIARTE MD Address: [address] [place] [address] 06/15/2018 [facility] Discharge Date 12/04/17 2:35pm Disposition HOME, SELF-CARE Instructions/Education Provided Pacemaker Prescriptions See Medication Section Referrals JACKY KINSEY MD (Internal Medicine) Order Date: 3 Weeks Entered Date: 12/04/2017 11:17am Address: [address] [place] [address] KAISER KATZ MD (Cardiology) Order Date: 2 Weeks Entered Date: 12/04/2017 11:20am Address: [address] [place] [address] CHRYSTAL NICOLE MD (Cardiology) Order Date: 3 Weeks Entered Date: 12/04/2017 11:20am Address: [address] [place] [address] 12/04/2017 [facility] Social History Social History Date Source Smoking Status Start Date Stop Date Never Smoker 06/15/2018 [facility] Family History No Data Provided for This Section Advance Directives Order Name Results Value Date Source Advance Directives Advance Directives Directive Response Recorded Date/Time Does the patient have an advance directive? Yes 04/03/18 3:57pm If yes, is advance directive on file with [facility]? No 12/03/17 2:02pm If not on file with [facility] will patient provide a copy? Yes 04/03/18 3:57pm Do you have a Directive to Physician? No 06/14/18 9:18pm Do you have a Medical Power of [employer] Machine Operator? No 06/14/18 9:18pm Do you have an out of hospital Do Not Resuscitate Order? No 06/14/18 9:18pm Do you have any special needs we should be aware of? No 06/14/18 9:18pm Do you have a support person here with you today? Yes 06/14/18 9:18pm Did patient receive Notice of Privacy Practices? Yes 06/14/18 9:18pm Did patient receive patient rights and responsibilities? Yes 06/14/18 9:18pm 06/15/2018 [facility] Advance Directives Advance Directives Directive Response Recorded Date/Time Does the patient have an advance directive? No 12/03/17 2:02pm If yes, is advance directive on file with [facility]? No 12/03/17 2:02pm If not on file with [facility] will patient provide a copy? No 12/03/17 2:02pm Do you have a Directive to Physician? No 12/02/17 8:48pm Do you have a Medical Power of [employer] Machine Operator? No 12/02/17 8:48pm Do you have an [...] patient rights and responsibilities? Yes 12/02/17 8:48pm 12/04/2017 [facility] Functional Status No Data Provided for This Section
[2019-01-20 13:24] LABS: BASOPHILS # (AUTO) 0.1 (0.0-0.1); BASOPHILS % 0.5 % (0.0-1.0); EOSINOPHILS # (AUTO) 0.1 (0.0-0.4); EOSINOPHILS % 1.1 % (0.0-6.0); HEMATOCRIT 30.6 % (34.2-44.1); HEMOGLOBIN 9.2 g/dL (12.0-16.0); LYMPHOCYTES # (AUTO) 1.9 (1.0-3.2); LYMPHOCYTES % 20.2 % (18.0-39.1); MEAN CORPUSCULAR HEMOGLOBIN 24.1 pg (28-32); MEAN CORPUSCULAR HGB CONC 30.1 g/dL (31-35); MEAN CORPUSCULAR VOLUME 80.1 fL (81-99); MONOCYTES # (AUTO) 0.9 (0.2-0.8); MONOCYTES % 9.2 % (4.4-11.3); NEUTROPHILS # (AUTO) 6.6 (2.1-6.9); NEUTROPHILS % 68.8 % (38.7-80.0); PLATELET COUNT 346 x10e3/uL (140-360); RED BLOOD COUNT 3.82 x10e6/uL (3.6-5.1); RED CELL DISTRIBUTION WIDTH 15.9 % (11.7-14.4)
[2019-01-20 13:35] LABS: INR 1.76; PROTHROMBIN TIME 21.2 seconds (11.9-14.5)
[2019-01-20 13:36] LABS: PARTIAL THROMBOPLASTIN TIME 36.7 seconds (23.8-35.5)
[2019-01-20 13:46] LABS: ALANINE AMINOTRANSFERASE 16 IU/L (0-55); ALBUMIN 3.3 g/dL (3.5-5.0); ALBUMIN/GLOBULIN RATIO 1.1 (0.8-2.0); ALKALINE PHOSPHATASE 106 IU/L (40-150); ANION GAP 11.6 mmol/L (8-16); BLOOD UREA NITROGEN 17 mg/dL (7-26); BUN/CREATININE RATIO 21 (6-25); CARBON DIOXIDE 27 mmol/L (22-29); CHLORIDE 102 mmol/L (98-107); CREATINE KINASE 124 IU/L (29-168); EST GLOMERULAR FILTRATION RATE > 60 ML/MIN (60-); GLUCOSE 86 mg/dL (74-118); POTASSIUM 3.6 mmol/L (3.5-5.1); SODIUM 137 mmol/L (136-145)
--- NOTE | 2019-01-20 13:58 | Diagnostic Imaging Report ---
EXAMINATION: CHEST SINGLE (PORTABLE) INDICATION: Chest pain COMPARISON: Chest radiograph of 06/14/2018 FINDINGS: LINES/TUBES:Left chest pacer, unchanged. EKG leads overlie the chest. LUNGS:The lungs are well-inflated. Mild bibasilar subsegmental atelectasis. No focal consolidation or pulmonary edema. PLEURA:No pleural effusion or pneumothorax. MEDIASTINUM:Cardiomediastinal silhouette is stably enlarged. BONES/SOFT TISSUES:No acute osseous injury. ABDOMEN:No free air under the diaphragm. IMPRESSION: No focal pneumonia or pulmonary edema. Unchanged cardiomegaly. Signed by: Mirza Branham MD on 01/20/2019 1:54 PM
[2019-01-20] MEDS: ACETAMINOPHEN 325 MG TAB PO ONE (14:34)
[2019-01-20 14:35] VITALS: BP 149/65
== END 2019-01-20 14:45 | disposition home or self-care (01) ==
LOC: ER 12:21
DX: R00.2 Palpitations (principal); R07.9 Chest pain, unspecified; R42 Dizziness and giddiness; R26.89 Other abnormalities of gait and mobility; Z95.5 Presence of coronary angioplasty implant and graft; Z95.0 Presence of cardiac pacemaker; I11.0 Hypertensive heart disease with heart failure; I50.9 Heart failure, unspecified; I48.91 Unspecified atrial fibrillation; F41.8 Other specified anxiety disorders; Z86.718 Personal history of other venous thrombosis and embolism; Z86.711 Personal history of pulmonary embolism; M19.90 Unspecified osteoarthritis, unspecified site; Z79.01 Long term (current) use of anticoagulants; Z79.82 Long term (current) use of aspirin
CPT/HCPCS: 36415; 71045; 80053; 82550; 82553; 82948; 84484; 85025; 85610; 85730; 93005; 99284

== ENCOUNTER 2019-10-22 09:22 | Emergency (ER) | payer MEDICARE ==
[~2019-10-22] VITALS: Ht 160 cm; Wt 72.1 kg
[2019-10-22] MEDS ORDERED: HYDROCODONE/APAP 10MG-325MG TAB PO ONE (09:45)
--- NOTE | 2019-10-22 10:24 | Diagnostic Imaging Report ---
EXAMINATION: WRIST COMPLETE RIGHT INDICATION: Wrist swelling, pain COMPARISON: None FINDINGS: No acute fracture or dislocation. 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 Moderate to severe radiocarpal degenerative changes with joint space narrowing and subchondral cystic change. Mild right wrist soft tissue swelling. IMPRESSION: Right wrist soft tissue swelling with prominent degenerative changes of the radiocarpal and first CMC joints. No underlying acute osseous injury. Signed by: Mirza Branham MD on 10/22/2019 10:21 AM
[2019-10-22] MEDS ORDERED: ULTRAM50 MG PO (11:13)
[2019-10-22] MEDS ORDERED: LIDOCAINE 4% PATCH TP SCH (11:15)
--- NOTE | 2019-10-22 11:18 | Emergency Department Note ---
History of Present Illnes History of Present Illness Chief Complaint: General Medicine Complaints History of Present Illness This is a 69 year old female arrived to the ED with complaints of right wrist pain for several days- denies any trauma, denies any numbness or weakness.. Chief Complaint Comment 69 YEAR OLD FEMALE PRESENTS FROM MEDICAL PROVIDER OFFICE VIA EMS FOR COMPLAINT OF RIGHT WRIST SWELLING AND PAIN. PATIENT STATES THAT PAIN STARTED 2-3 DAYS AGO AND IS SEVERE. SHE PRESENTED TO HER PRIMARY PROVIDER OFFICE BUT THEY WERE NOT ABLE TO SEE HER. DENIES TRAUMA TO AREA. PULSES PALPABLE. SWELLING OVER DORSAL ASPECT OF THUMB WITHOUT DISCOLORATION. FINGERS PINK, WARM CAPILLARY REFILL 4 SECONDS Historian: Patient Arrival Mode: [employer] Services Required: No Severity: mild Onset quality: gradual Duration (how long): day(s) Progression: improving Chronicity: new Past Medical/Family History Physician Review I have reviewed the patient's past medical and family history. Any updates have been documented here. 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 Social History Smoking Cessation: Never Smoker Alcohol Use: None Any Illegal Drug Use: No TB Exposure/Symptoms: No Physically hurt or threatened: No Family History Family history of heart diseas: No Other Last Tetanus: UNKNOWN Any Pre-Existing Lines (PICC,: No Is patient up to date on immun: Yes Last Flu: UNKNOWN Last Pneumovax: UNKNOWN Review of Systems Review of Systems Constitutional: Reports no symptoms EENTM: Reports no symptoms Cardiovascular: Reports no symptoms Respiratory: Reports no symptoms Gastrointestinal: Reports no symptoms Genitourinary: Reports no symptoms Musculoskeletal: Reports as per HPI, Reports joint pain, Reports joint swelling Integumentary: Reports no symptoms Neurological: Reports no symptoms Psychological: Reports no symptoms Endocrine: Reports no symptoms Hematological/Lymphatic: Reports no symptoms Physical Exam Related Data Allergies: Coded Allergies: No Known Drug Allergies (Verified Allergy, Unknown, 12/02/17) Triage Vital Signs Vital Signs Date Time Temp Pulse Resp B/P (MAP) Pulse Ox O2 Delivery O2 Flow Rate FiO2 10/22/19 09:40 98.4 63 20 111/74 98 Vital signs reviewed: Yes Physical Exam CONSTITUTIONAL Constitutional: Present well-developed, Present well-nourished HENT HENT: Present normocephalic, Present atraumatic, Present oropharynx clear/moist, Present nose normal HENT L/R: Present left ext ear normal, Present right ext ear normal EYES Eyes: Reports PERRL, Reports conjunctivae normal NECK Neck: Present ROM normal PULMONARY Pulmonary: Present effort normal, Present breath sounds normal CARDIOVASCULAR Cardiovascular: Present regular rhythm, Present heart sounds normal, Present capillary refill normal, Present normal rate GASTROINTESTINAL Abdominal: Present soft, Present nontender, Present bowel sounds normal GENITOURINARY Genitourinary: Present exam deferred SKIN Skin: Present warm, Present dry MUSCULOSKELETAL Musculoskeletal: Present ROM normal, Present other (swelling noted over second first metacarpal, rubbery and palpation, no superimposed cellulitis noted, positive radial pulse, compartments otherwise soft, full range of motion of digits with normal abduction and opposition of fingers- no skin break noted) NEUROLOGICAL Neurological: Present alert, Present oriented x 3, Present no gross motor or sensory deficits PSYCHOLOGICAL Psychological: Present mood/affect normal, Present judgement normal Results Imaging Imaging results reviewed: Yes Impressions IMPRESSION: Right wrist soft tissue swelling with prominent degenerative changes of the radiocarpal and first CMC joints. No underlying acute osseous injury. Assessment & Plan Medical Decision Making MDM 69-year-old well-appearing female arrived to the ED with complaints of wrist pain, on exam patient clinically appeared to have a subchondral cystwrist x-ray was performed and was consistent with the clinical findings. No concerns of infection. Case discussed with Dr. Forrest from [facility] he will see the patient as an outpatient tomorrow. Patient informed to follow up with him in clinic appointment was made for her patient's present standing pain was controlled in the ED and patient was stable for discharge home. Assessment & Plan Final Impression: (1) Subchondral cyst Depart Disposition: HOME, SELF-CARE Last Vital Signs Date Time Temp Pulse Resp B/P (MAP) Pulse Ox O2 Delivery O2 Flow Rate FiO2 10/22/19 09:56 98.4 74 18 111/74 100 Home Meds Reported Medications Metoprolol Tartrate (METOPROLOL TARTRATE) 50 Mg Tablet, 50 MG PO BID, TAB 07/28/18 Amiodarone Hcl (AMIODARONE HCL) 200 Mg Tablet, 200 MG PO BID 07/28/18 Pramipexole Di-Hcl (PRAMIPEXOLE DIHYDROCHLORIDE) 1 Mg Tablet, 1 MG PO TID 07/28/18 Hydrocodone Bit/Acetaminophen (NORCO 7.5-325 TABLET) 1 Each Tablet, 1 EA PO TID for pain, TAB 04/28/18 Aspirin (ASPIR 81) 81 Mg Tablet.dr, 81 MG PO DAILY 04/24/18 Furosemide (FUROSEMIDE) 40 Mg Tablet, 40 MG PO Daily, #30 TAB 04/24/18 Rivaroxaban (XARELTO) 20 Mg Tablet, 20 MG PO DAILY 12/02/17 Citalopram Hydrobromide (CITALOPRAM HBR) 20 Mg Tablet, 20 MG PO DAILY, #30 12/02/17 Tizanidine Hcl (TIZANIDINE HCL) 4 Mg Tablet, 4 MG PO HS, #60 12/02/17 Zolpidem Tartrate (ZOLPIDEM TARTRATE) 10 Mg Tablet, 10 TAB PO HS PRN for SLEEP, #90 12/02/17 Medications in the ED Acetaminophen/ Hydrocodone Bitart 1 ea ONCE ONCE PO Last administered on 10/22/19at 10:22; Admin Dose 1 EA; Start 10/22/19 at 09:45; Stop 10/22/19 at 09:59; Status DC MATEO CABRERA DO Oct 22, 2019 11:18
[2019-10-22 11:23] VITALS: BP 124/75
== END 2019-10-22 12:09 | disposition home or self-care (01) ==
LOC: ER 09:22
DX: M25.531 Pain in right wrist (principal); L72.8 Other follicular cysts of the skin and subcutaneous tissue; I10 Essential (primary) hypertension; E78.5 Hyperlipidemia, unspecified; I25.10 Atherosclerotic heart disease of native coronary artery without angina pectoris; Z86.718 Personal history of other venous thrombosis and embolism; I25.2 Old myocardial infarction; Z95.5 Presence of coronary angioplasty implant and graft; Z86.73 Personal history of transient ischemic attack (TIA), and cerebral infarction without residual deficits
CPT/HCPCS: 99283

== ENCOUNTER → 2019-11-16 | Outpatient (CLI) | payer MEDICARE ==
[~2019-11-16] MED LIST changes: +ULTRAM50 MG PO
== END ==
LOC: RAD 13:09
PROVIDERS: ATTEND Internal Medicine
DX: Z13.6 Encounter for screening for cardiovascular disorders (principal)
CPT/HCPCS: 93970

== ENCOUNTER → 2020-05-25 | Outpatient (CLI) | payer MEDICARE | LOC: RAD 12:24 | PROVIDERS: ATTEND Internal Medicine | DX: J45.909 Unspecified asthma, uncomplicated (principal); R06.02 Shortness of breath | CPT/HCPCS: 71046 ==

== ENCOUNTER 2020-05-28 19:58 | Observation (INO) | payer MEDICARE, OTHER ==
[~2020-05-28] VITALS: Ht 160 cm; Wt 72.1 kg
[2020-05-28 20:43] LABS: BASOPHILS # (AUTO) 0.1 (0.0-0.1); BASOPHILS % 0.5 % (0.0-1.0); EOSINOPHILS # (AUTO) 0.1 (0.0-0.4); EOSINOPHILS % 0.9 % (0.0-6.0); HEMATOCRIT 26.6 % (34.2-44.1); HEMOGLOBIN 7.8 g/dL (12.0-16.0); LYMPHOCYTES # (AUTO) 1.5 (1.0-3.2); LYMPHOCYTES % 15.5 % (18.0-39.1); MEAN CORPUSCULAR HEMOGLOBIN 22.9 pg (28-32); MEAN CORPUSCULAR HGB CONC 29.3 g/dL (31-35); MONOCYTES # (AUTO) 0.9 (0.2-0.8); MONOCYTES % 8.7 % (4.4-11.3); NEUTROPHILS # (AUTO) 7.2 (2.1-6.9); PLATELET COUNT 273 x10e3/uL (140-360); RED BLOOD COUNT 3.41 x10e6/uL (3.6-5.1); RED CELL DISTRIBUTION WIDTH 19.7 % (11.7-14.4)
[2020-05-28 20:51] LABS: INR 1.87
[2020-05-28 20:52] LABS: PARTIAL THROMBOPLASTIN TIME 42.1 seconds (23.8-35.5)
[2020-05-28 20:58] LABS: ALANINE AMINOTRANSFERASE 25 IU/L (0-55); ALBUMIN 3.4 g/dL (3.5-5.0); ALBUMIN/GLOBULIN RATIO 1.2 (0.8-2.0); ALKALINE PHOSPHATASE 114 IU/L (40-150); ANION GAP 15.2 mmol/L (8-16); BLOOD UREA NITROGEN 18 mg/dL (7-26); BUN/CREATININE RATIO 22 (6-25); CALCIUM 8.2 mg/dL (8.4-10.2); CARBON DIOXIDE 23 mmol/L (22-29); CHLORIDE 106 mmol/L (98-107); CREATINE KINASE 94 IU/L (29-168); CREATININE, SERUM 0.81 mg/dL (0.57-1.11); EST GLOMERULAR FILTRATION RATE > 60 ML/MIN (60-); GLUCOSE 85 mg/dL (74-118); POTASSIUM 4.2 mmol/L (3.5-5.1); SODIUM 140 mmol/L (136-145)
[2020-05-28 21:18] LABS: ANISOCYTOSIS SLIGHT; HYPOCHROMASIA SLIGHT; PLATELET ESTIMATE ADEQUATE; PLATELET MORPHOLOGY COMMENT NORMAL
[2020-05-28 21:19] LABS: MICROCYTOSIS SLIGHT
[2020-05-29] VITALS (7 sets, daily range): BP systolic 112–164; BP diastolic 56–82
[2020-05-29] MEDS ORDERED: ASPIRIN 81 MG CHEW TAB PO ONE
[2020-05-29] MEDS: FUROSEMIDE INJ 10 MG/ML 4 ML VIAL IV SCH ×3 (00:33→17:15)
[2020-05-29] MEDS ORDERED: TRAZODONE HCL50 MG PO (02:05)
[2020-05-29] MEDS ORDERED: LISINOPRIL10 MG PO (02:05)
[2020-05-29] MEDS ORDERED: PANTOPRAZOLE SO40 MG PO (02:05)
[2020-05-29] MEDS ORDERED: HYDROCODON-ACE1 EAC9 PO (02:05)
[2020-05-29] MEDS ORDERED: ATORVASTATIN CA10 MG PO (02:05)
[2020-05-29] MEDS ORDERED: ZOLOFT50 MG PO (02:05)
[2020-05-29] MEDS ORDERED: JANTOVEN1 MG PO (02:05)
[2020-05-29] MEDS ORDERED: METOPROLOL SUCC25 MG PO (02:05)
[2020-05-29 07:09] LABS: BASOPHILS # (AUTO) 0.1 (0.0-0.1); BASOPHILS % 0.5 % (0.0-1.0); EOSINOPHILS # (AUTO) 0.1 (0.0-0.4); HEMATOCRIT 28.5 % (34.2-44.1); HEMOGLOBIN 8.5 g/dL (12.0-16.0); LYMPHOCYTES # (AUTO) 1.1 (1.0-3.2); LYMPHOCYTES % 10.8 % (18.0-39.1); MEAN CORPUSCULAR HEMOGLOBIN 22.8 pg (28-32); MEAN CORPUSCULAR HGB CONC 29.8 g/dL (31-35); MEAN CORPUSCULAR VOLUME 76.6 fL (81-99); MONOCYTES # (AUTO) 1.1 (0.2-0.8); MONOCYTES % 10.2 % (4.4-11.3); NEUTROPHILS % 77.1 % (38.7-80.0); PLATELET COUNT 274 x10e3/uL (140-360); RED BLOOD COUNT 3.72 x10e6/uL (3.6-5.1); RED CELL DISTRIBUTION WIDTH 19.4 % (11.7-14.4)
[2020-05-29 07:26] LABS: ALANINE AMINOTRANSFERASE 24 IU/L (0-55); ALBUMIN 3.5 g/dL (3.5-5.0); ALBUMIN/GLOBULIN RATIO 1.2 (0.8-2.0); ALKALINE PHOSPHATASE 116 IU/L (40-150); ANION GAP 15.7 mmol/L (8-16); BLOOD UREA NITROGEN 13 mg/dL (7-26); BUN/CREATININE RATIO 15 (6-25); CALCIUM 8.4 mg/dL (8.4-10.2); CARBON DIOXIDE 25 mmol/L (22-29); CHLORIDE 103 mmol/L (98-107); CREATININE, SERUM 0.84 mg/dL (0.57-1.11); EST GLOMERULAR FILTRATION RATE > 60 ML/MIN (60-); GLUCOSE 81 mg/dL (74-118); POTASSIUM 3.7 mmol/L (3.5-5.1); SODIUM 140 mmol/L (136-145)
[2020-05-29 07:43] LABS: CREATINE KINASE MB 2.2 ng/mL (0-5.0)
[2020-05-29 10:26] LABS: ANISOCYTOSIS SLIGHT; HYPOCHROMASIA SLIGHT; PLATELET ESTIMATE ADEQUATE; PLATELET MORPHOLOGY COMMENT FEW LARGE; RBC MORPHOLOGY COMMENT ABNORMAL
[2020-05-29] MEDS ORDERED: HYDROCODONE/APAP 10MG-325MG TAB PO PRN (11:15)
[2020-05-29] MEDS: TIZANIDINE HCL 4 MG TAB PO SCH ×2 (11:15→21:21)
[2020-05-29] MEDS: PANTOPRAZOLE SOD 40 MG TABEC PO SCH (11:15)
[2020-05-29] MEDS: AMIODARONE HCL 200 MG TAB PO SCH ×2 (11:15→22:22)
[2020-05-29] MEDS ORDERED: AMIODARONE HCL 200 MG TAB ONE (11:16)
[2020-05-29] MEDS ORDERED: TIZANIDINE HCL 4 MG TAB ONE (11:16)
[2020-05-29] MEDS ORDERED: PANTOPRAZOLE SOD 40 MG TABEC ONE (11:19)
[2020-05-29] MEDS ORDERED: ACETAMINOPHEN 325 MG TAB PO PRN (12:15)
[2020-05-29] MEDS ORDERED: ALBUTEROL SULF 0.083% NEB SOLN 3 ML NEB NEB PRN (12:15)
[2020-05-29 13:01] LABS: FERRITIN 53.28 ng/mL (4.63-204.00)
[2020-05-29 14:37] LABS: CREATINE KINASE MB 1.9 ng/mL (0-5.0)
[2020-05-29] MEDS ORDERED: FUROSEMIDE INJ 10 MG/ML 4 ML VIAL IV SCH ×2 (17:00→18:00)
[2020-05-29] MEDS ORDERED: AMIODARONE HCL 200 MG TAB PO SCH (17:00)
[2020-05-29] MEDS ORDERED: TRAZODONE HCL 50 MG TAB PO SCH (21:00)
[2020-05-29] MEDS ORDERED: PRAMIPEXOLE DIHYDROCHLORIDE 1 MG TAB PO SCH (21:00)
[2020-05-30] VITALS: BP 122/56
[2020-05-30 04:00] VITALS: BP 108/53
[2020-05-30 05:34] LABS: BASOPHILS # (AUTO) 0.1 (0.0-0.1); BASOPHILS % 0.6 % (0.0-1.0); EOSINOPHILS # (AUTO) 0.2 (0.0-0.4); EOSINOPHILS % 2.7 % (0.0-6.0); HEMATOCRIT 31.3 % (34.2-44.1); HEMOGLOBIN 9.2 g/dL (12.0-16.0); LYMPHOCYTES # (AUTO) 1.3 (1.0-3.2); LYMPHOCYTES % 16.5 % (18.0-39.1); MEAN CORPUSCULAR HEMOGLOBIN 23.1 pg (28-32); MEAN CORPUSCULAR HGB CONC 29.4 g/dL (31-35); MEAN CORPUSCULAR VOLUME 78.6 fL (81-99); MONOCYTES # (AUTO) 0.9 (0.2-0.8); NEUTROPHILS # (AUTO) 5.3 (2.1-6.9); NEUTROPHILS % 68.8 % (38.7-80.0); PLATELET COUNT 290 x10e3/uL (140-360); RED BLOOD COUNT 3.98 x10e6/uL (3.6-5.1); RED CELL DISTRIBUTION WIDTH 19.4 % (11.7-14.4)
[2020-05-30 05:59] LABS: ANION GAP 14.7 mmol/L (8-16); BLOOD UREA NITROGEN 14 mg/dL (7-26); BUN/CREATININE RATIO 18 (6-25); CALCIUM 8.4 mg/dL (8.4-10.2); CARBON DIOXIDE 27 mmol/L (22-29); CHLORIDE 103 mmol/L (98-107); CREATININE, SERUM 0.76 mg/dL (0.57-1.11); EST GLOMERULAR FILTRATION RATE > 60 ML/MIN (60-); GLUCOSE 87 mg/dL (74-118); POTASSIUM 3.7 mmol/L (3.5-5.1); SODIUM 141 mmol/L (136-145)
[2020-05-30 07:28] VITALS: BP 136/66
[2020-05-30 07:44] VITALS: BP 136/66
[2020-05-30] MEDS: FUROSEMIDE INJ 10 MG/ML 4 ML VIAL IV SCH (08:53)
[2020-05-30] MEDS: PANTOPRAZOLE SOD 40 MG TABEC PO SCH (08:53)
[2020-05-30] MEDS: AMIODARONE HCL 200 MG TAB PO SCH (08:53)
[2020-05-30] MEDS ORDERED: LISINOPRIL 10 MG TAB PO SCH (09:00)
[2020-05-30] MEDS ORDERED: ASPIRIN 81 MG CHEW TAB PO SCH (09:00)
[2020-05-30] MEDS ORDERED: SERTRALINE HCL 50 MG TAB PO SCH (09:00)
[2020-05-30] MEDS ORDERED: METOPROLOL SUCCINATE 25 MG TAB XL PO SCH (09:00)
[2020-05-30 11:06] VITALS: BP 133/57
[2020-05-30] MEDS ORDERED: WARFARIN SOD 1 MG TAB PO SCH (17:00)
[2020-05-30] MEDS ORDERED: ATORVASTATIN 10 MG TAB PO SCH (21:00)
== END 2020-05-30 11:44 | disposition home or self-care (01) ==
LOC: ER 20:02 → ERHOLD 23:43 → MED/SURG 05-29 00:38
PROVIDERS: ADMIT Internal Medicine; ATTEND Internal Medicine
DX: I11.0 Hypertensive heart disease with heart failure (principal); I25.10 Atherosclerotic heart disease of native coronary artery without angina pectoris; Z95.5 Presence of coronary angioplasty implant and graft; D53.9 Nutritional anemia, unspecified; I49.5 Sick sinus syndrome; Z95.0 Presence of cardiac pacemaker; G89.29 Other chronic pain; Z20.822 Contact with and (suspected) exposure to COVID-19; I50.33 Acute on chronic diastolic (congestive) heart failure; I48.0 Paroxysmal atrial fibrillation; Z79.01 Long term (current) use of anticoagulants
CPT/HCPCS: 36415 ×3; 71045; 80048; 80053 ×2; 82550 ×2; 82553 ×2; 82607; 82728; 82746; 83540; 83735; 83880 ×2; 84466; 84484 ×2; 85025 ×3; 85379; 85610; 85730; 93005; 93306; 99284; G0378 ×3; J1940 ×2; S0164; U0002

== ENCOUNTER → 2020-07-29 | Day surgery (SDC) | payer MEDICARE ==
[2020-07-25 13:39] LABS: BASOPHILS # (AUTO) 0.1 (0.0-0.1); BASOPHILS % 0.9 % (0.0-1.0); EOSINOPHILS # (AUTO) 0.1 (0.0-0.4); EOSINOPHILS % 1.4 % (0.0-6.0); HEMATOCRIT 33.7 % (34.2-44.1); HEMOGLOBIN 9.8 g/dL (12.0-16.0); MEAN CORPUSCULAR HEMOGLOBIN 22.4 pg (28-32); MEAN CORPUSCULAR HGB CONC 29.1 g/dL (31-35); MEAN CORPUSCULAR VOLUME 76.9 fL (81-99); MONOCYTES # (AUTO) 0.9 (0.2-0.8); MONOCYTES % 9.1 % (4.4-11.3); NEUTROPHILS % 68.3 % (38.7-80.0); PLATELET COUNT 303 x10e3/uL (140-360); RED BLOOD COUNT 4.38 x10e6/uL (3.6-5.1); RED CELL DISTRIBUTION WIDTH 18.3 % (11.7-14.4)
[~2020-07-29] MED LIST changes: +ATORVASTATIN CA10 MG PO; +HYDROCODON-ACE1 EAC9 PO; +JANTOVEN1 MG PO; +LISINOPRIL10 MG PO; +METOPROLOL SUCC25 MG PO; +PANTOPRAZOLE SO40 MG PO; +TRAZODONE HCL50 MG PO; +ZOLOFT50 MG PO
[2020-07-29 14:08] LABS: INR 2.3; PROTHROMBIN TIME 26.1 seconds (11.9-14.5)
[2020-07-29 14:09] LABS: PARTIAL THROMBOPLASTIN TIME 47.8 seconds (23.8-35.5)
== END | disposition home or self-care (01) ==
LOC: OR 13:00
PROVIDERS: ATTEND Internal Medicine Gastroenterology
DX: D64.9 Anemia, unspecified (principal); Z86.010 Personal history of colon polyps; Z01.810 Encounter for preprocedural cardiovascular examination; Z01.812 Encounter for preprocedural laboratory examination; Z20.822 Contact with and (suspected) exposure to COVID-19; Z53.8 Procedure and treatment not carried out for other reasons
CPT/HCPCS: 36415 ×2; 85025; 85610; 85730; 93005; U0002

== ENCOUNTER → 2020-10-27 | Day surgery (SDC) | payer MEDICARE ==
[2020-10-24 13:31] LABS: BASOPHILS # (AUTO) 0.1 (0.0-0.1); BASOPHILS % 0.9 % (0.0-1.0); EOSINOPHILS # (AUTO) 0.1 (0.0-0.4); EOSINOPHILS % 1.3 % (0.0-6.0); HEMATOCRIT 30.6 % (34.2-44.1); HEMOGLOBIN 8.7 g/dL (12.0-16.0); LYMPHOCYTES # (AUTO) 1.5 (1.0-3.2); LYMPHOCYTES % 17.3 % (18.0-39.1); MEAN CORPUSCULAR HGB CONC 28.4 g/dL (31-35); MEAN CORPUSCULAR VOLUME 77.5 fL (81-99); MONOCYTES # (AUTO) 0.9 (0.2-0.8); MONOCYTES % 10.8 % (4.4-11.3); NEUTROPHILS # (AUTO) 5.9 (2.1-6.9); NEUTROPHILS % 69.3 % (38.7-80.0); PLATELET COUNT 289 x10e3/uL (140-360); RED BLOOD COUNT 3.95 x10e6/uL (3.6-5.1); RED CELL DISTRIBUTION WIDTH 19.6 % (11.7-14.4)
[~2020-10-27] MED LIST changes: +FENTANYL CITRATE/PF 100MCG/2 ML INJ ONE; +HYOSCYAMINE SULFATE 0.5 MG/ML INJ ONE; +MIDAZOLAM HCL 2 MG/2 ML VIAL ONE; +PROPOFOL IV EMULSION 10 MG/ML 20 ML VIAL ONE
[2020-10-27 18:00] VITALS: BP 127/68
== END | disposition home or self-care (01) ==
LOC: OR 12:33
PROVIDERS: ATTEND Internal Medicine Gastroenterology
DX: D64.9 Anemia, unspecified (principal); K63.5 Polyp of colon; K29.50 Unspecified chronic gastritis without bleeding; K22.8 Other specified diseases of esophagus; K44.9 Diaphragmatic hernia without obstruction or gangrene; K62.89 Other specified diseases of anus and rectum; I10 Essential (primary) hypertension; M19.90 Unspecified osteoarthritis, unspecified site; R06.09 Other forms of dyspnea; I25.10 Atherosclerotic heart disease of native coronary artery without angina pectoris; I11.0 Hypertensive heart disease with heart failure; I50.9 Heart failure, unspecified; Z88.8 Allergy status to other drugs, medicaments and biological substances; Z95.0 Presence of cardiac pacemaker; Z01.810 Encounter for preprocedural cardiovascular examination; Z01.812 Encounter for preprocedural laboratory examination; Z79.02 Long term (current) use of antithrombotics/antiplatelets; Z79.82 Long term (current) use of aspirin; Z98.61 Coronary angioplasty status; Z86.73 Personal history of transient ischemic attack (TIA), and cerebral infarction without residual deficits
CPT/HCPCS: 36415; 43239; 45380; 85025; 93005; J1980; J2250; J2704; J3010; 43235

== ENCOUNTER → 2020-11-18 | Outpatient (CLI) | payer MEDICARE ==
[~2020-11-18] MED LIST changes: -FENTANYL CITRATE/PF 100MCG/2 ML INJ ONE; -HYOSCYAMINE SULFATE 0.5 MG/ML INJ ONE; -MIDAZOLAM HCL 2 MG/2 ML VIAL ONE; -PROPOFOL IV EMULSION 10 MG/ML 20 ML VIAL ONE
== END ==
LOC: DX 09:09
PROVIDERS: ATTEND Internal Medicine Gastroenterology
DX: D64.89 Other specified anemias (principal)
CPT/HCPCS: 74250

== ENCOUNTER 2021-02-14 18:52 | Emergency (ER) | payer MEDICARE ==
[~2021-02-14] VITALS: Ht 160 cm; Wt 61.2 kg
[2021-02-14] MEDS ORDERED: SODIUM CHLORIDE 0.9% 250ML 250 ML IV ONE (19:00)
[2021-02-14 19:16] LABS: BASOPHILS # (AUTO) 0.1 (0.0-0.1); BASOPHILS % 0.7 % (0.0-1.0); EOSINOPHILS # (AUTO) 0.1 (0.0-0.4); EOSINOPHILS % 1.4 % (0.0-6.0); HEMATOCRIT 26.1 % (34.2-44.1); HEMOGLOBIN 7.3 g/dL (12.0-16.0); LYMPHOCYTES # (AUTO) 1.9 (1.0-3.2); LYMPHOCYTES % 19.6 % (18.0-39.1); MEAN CORPUSCULAR HEMOGLOBIN 20.3 pg (28-32); MEAN CORPUSCULAR VOLUME 72.7 fL (81-99); MONOCYTES # (AUTO) 0.9 (0.2-0.8); MONOCYTES % 9.1 % (4.4-11.3); NEUTROPHILS # (AUTO) 6.6 (2.1-6.9); NEUTROPHILS % 68.9 % (38.7-80.0); PLATELET COUNT 334 x10e3/uL (140-360); RED BLOOD COUNT 3.59 x10e6/uL (3.6-5.1)
[2021-02-14] MEDS ORDERED: ONDANSETRON HCL INJ 2MG/ML 2ML 2 MG/ML VIAL IV STA (20:53)
[2021-02-14] MEDS ORDERED: ACETAMINOPHEN 325 MG TAB PO ONE (21:00)
[2021-02-15 00:27] VITALS: BP 152/76
== END 2021-02-15 00:20 | disposition home or self-care (01) ==
LOC: ER 18:55
DX: D64.9 Anemia, unspecified (principal); R06.02 Shortness of breath; R94.31 Abnormal electrocardiogram [ECG] [EKG]; I10 Essential (primary) hypertension; I50.9 Heart failure, unspecified; I48.91 Unspecified atrial fibrillation; I25.10 Atherosclerotic heart disease of native coronary artery without angina pectoris; E78.5 Hyperlipidemia, unspecified; Z86.718 Personal history of other venous thrombosis and embolism; Z95.5 Presence of coronary angioplasty implant and graft; Z95.0 Presence of cardiac pacemaker
CPT/HCPCS: 36415; 85025; 86850; 86900; 86920; 93005; 99283; J2405; J7050; P9016

== ENCOUNTER 2021-02-26 00:55 | Emergency (ER) | payer MEDICARE ==
[~2021-02-26] VITALS: Ht 160 cm; Wt 61.2 kg
[2021-02-26 02:38] LABS: ALBUMIN 3.7 g/dL (3.5-5.0); ALBUMIN/GLOBULIN RATIO 1.2 (0.8-2.0); ANION GAP 18.2 mmol/L (8-16); CALCIUM 8.6 mg/dL (8.4-10.2); CREATININE, SERUM 0.81 mg/dL (0.57-1.11); POTASSIUM 5.2 mmol/L (3.5-5.1)
[2021-02-26 02:44] LABS: CREATINE KINASE MB 0.8 ng/mL (0-5.0)
[2021-02-26 02:48] LABS: BASOPHILS % 0.4 % (0.0-1.0); EOSINOPHILS # (AUTO) 0.1 (0.0-0.4); EOSINOPHILS % 0.5 % (0.0-6.0); HEMATOCRIT 33.6 % (34.2-44.1); HEMOGLOBIN 9.6 g/dL (12.0-16.0); LYMPHOCYTES % 9.6 % (18.0-39.1); MEAN CORPUSCULAR HEMOGLOBIN 21.6 pg (28-32); MEAN CORPUSCULAR HGB CONC 28.6 g/dL (31-35); MEAN CORPUSCULAR VOLUME 75.5 fL (81-99); MONOCYTES # (AUTO) 0.8 (0.2-0.8); MONOCYTES % 7.7 % (4.4-11.3); NEUTROPHILS # (AUTO) 8.8 (2.1-6.9); NEUTROPHILS % 81.2 % (38.7-80.0); PLATELET COUNT 345 x10e3/uL (140-360); RED BLOOD COUNT 4.45 x10e6/uL (3.6-5.1); RED CELL DISTRIBUTION WIDTH 21.5 % (11.7-14.4)
[2021-02-26] MEDS ORDERED: ACETAMINOPHEN 325 MG TAB PO STA (02:57)
[2021-02-26] MEDS ORDERED: ACETAMINOPHEN 325 MG TAB ONE (03:09)
[2021-02-26 03:40] VITALS: BP 138/60
[2021-02-26] MEDS ORDERED: AZITHROMYCIN250 MG PO (03:41)
== END 2021-02-26 04:06 | disposition home or self-care (01) ==
LOC: ER 01:49
DX: R50.9 Fever, unspecified (principal); R07.9 Chest pain, unspecified; I10 Essential (primary) hypertension; I50.9 Heart failure, unspecified; I48.91 Unspecified atrial fibrillation; I25.10 Atherosclerotic heart disease of native coronary artery without angina pectoris; D64.9 Anemia, unspecified; E78.5 Hyperlipidemia, unspecified; Z20.822 Contact with and (suspected) exposure to COVID-19; Z86.718 Personal history of other venous thrombosis and embolism; Z95.5 Presence of coronary angioplasty implant and graft; Z95.0 Presence of cardiac pacemaker
CPT/HCPCS: 36415; 71045; 80053; 82550; 82553; 83880; 84484; 85025; 87400; 93005; 99284; U0002

== ENCOUNTER 2021-10-05 11:21 | Emergency (ER) | payer MEDICARE ==
[~2021-10-05] VITALS: Ht 162.6 cm; Wt 63.5 kg
[~2021-10-05 11:21] MED LIST changes: +AZITHROMYCIN250 MG PO
[2021-10-05] MEDS ORDERED: DEBROX15 ML LEFT EAR (11:31)
[2021-10-05] MEDS ORDERED: AUGMENTIN 500-1 EACH PO (11:31)
== END 2021-10-05 12:44 | disposition home or self-care (01) ==
LOC: ER 11:24
DX: H92.02 Otalgia, left ear (principal); H66.92 Otitis media, unspecified, left ear; I11.0 Hypertensive heart disease with heart failure; I50.9 Heart failure, unspecified; I48.91 Unspecified atrial fibrillation; Z79.02 Long term (current) use of antithrombotics/antiplatelets
CPT/HCPCS: 93005; 99282

== ENCOUNTER 2022-06-01 17:58 | Observation (INO) | payer MEDICARE ==
[~2022-06-01] VITALS: Ht 162.6 cm; Wt 63.5 kg
[~2022-06-01 17:58] MED LIST changes: +AMOX TR-K CLV1 EAC2 PO; +AUGMENTIN 500-1 EACH PO; +AZITHROMYCIN500 MG PO; +DEBROX15 ML LEFT EAR; +GUAIFEN-CODEINE5 ML PO; +POTASSIUM CHLO20 ME1 PO
[2022-06-01] MEDS ORDERED: ASPIRIN 81 MG CHEW TAB PO ONE (18:15)
[2022-06-01 18:31] LABS: BASOPHILS # (AUTO) 0.1 (0.0-0.1); BASOPHILS % 0.6 % (0.0-1.0); EOSINOPHILS # (AUTO) 0.1 (0.0-0.4); EOSINOPHILS % 0.5 % (0.0-6.0); HEMATOCRIT 33.7 % (34.2-44.1); HEMOGLOBIN 9.8 g/dL (12.0-16.0); LYMPHOCYTES # (AUTO) 2.1 (1.0-3.2); LYMPHOCYTES % 17.4 % (18.0-39.1); MEAN CORPUSCULAR HEMOGLOBIN 24.9 pg (28-32); MEAN CORPUSCULAR HGB CONC 29.1 g/dL (31-35); MEAN CORPUSCULAR VOLUME 85.8 fL (81-99); MONOCYTES # (AUTO) 1.1 (0.2-0.8); MONOCYTES % 8.6 % (4.4-11.3); NEUTROPHILS # (AUTO) 8.9 (2.1-6.9); NEUTROPHILS % 72.6 % (38.7-80.0); PLATELET COUNT 291 x10e3/uL (140-360); RED BLOOD COUNT 3.93 x10e6/uL (3.6-5.1)
[2022-06-01 18:57] LABS: ALBUMIN 3.7 g/dL (3.5-5.0); ALBUMIN/GLOBULIN RATIO 1.1 (0.8-2.0); ANION GAP 15.8 mmol/L (8-16); CREATININE, SERUM 0.85 mg/dL (0.57-1.11)
[2022-06-01 18:59] LABS: POTASSIUM 2.8 mmol/L (3.5-5.1)
[2022-06-01] MEDS ORDERED: POTASSIUM CHLORIDE 20 MEQ TAB CR PO ONE (18:59)
[2022-06-01 19:04] LABS: CREATINE KINASE MB 2.8 ng/mL (0-5.0)
[2022-06-01] MEDS ORDERED: SODIUM CHLORIDE FLUSH 10 ML SYR INJ PRN (20:15)
[2022-06-01] MEDS ORDERED: FUROSEMIDE INJ 10 MG/ML 4 ML VIAL IV ONE (20:15)
[2022-06-01 22:00] VITALS: BP 124/83
[2022-06-01] MEDS ORDERED: LOSARTAN POTASS25 MG PO (22:22)
[2022-06-01] MEDS ORDERED: POTASSIUM CHLO20 ME1 PO (22:22)
[2022-06-01] MEDS ORDERED: FUROSEMIDE40 MG PO (22:22)
[2022-06-01] MEDS ORDERED: LEXAPRO10 MG PO (22:22)
[2022-06-01] MEDS ORDERED: STOOL SOFTENER250 MG (22:22)
[2022-06-01] MEDS ORDERED: BENADRYL25 M1 PO (22:22)
[2022-06-01] MEDS ORDERED: ISOSORBIDE MONO30 MG PO (22:24)
[2022-06-01 22:29] VITALS: BP 117/50
[2022-06-01] MEDS ORDERED: GUAIFENESIN/CODEINE 5 ML LIQD PO PRN (22:45)
[2022-06-01] MEDS ORDERED: HYDROCODONE/APAP 10MG-325MG TAB PO PRN (22:45)
[2022-06-01] MEDS ORDERED: DIPHENHYDRAMINE HCL 25 MG CAP PO PRN (22:45)
[2022-06-01] MEDS ORDERED: PRAMIPEXOLE DIHYDROCHLORIDE 1 MG TAB PO SCH (23:00)
[2022-06-01] MEDS ORDERED: TIZANIDINE HCL 4 MG TAB PO SCH (23:00)
[2022-06-01] MEDS ORDERED: TRAZODONE HCL 50 MG TAB PO SCH (23:00)
[2022-06-02 01:18] VITALS: BP 129/68
[2022-06-02 04:00] VITALS: BP 100/51
[2022-06-02 08:02] LABS: CREATINE KINASE MB 2.3 ng/mL (0-5.0)
[2022-06-02 08:26] VITALS: BP 100/51
[2022-06-02 08:42] VITALS: BP 120/56
[2022-06-02] MEDS ORDERED: ISOSORBIDE MONONITRATE 30 MG TAB CR PO SCH (09:00)
[2022-06-02] MEDS ORDERED: ESCITALOPRAM OXALATE 10 MG TAB PO SCH (09:00)
[2022-06-02] MEDS ORDERED: LOSARTAN POTASSIUM 25 MG TAB PO SCH (09:00)
[2022-06-02] MEDS ORDERED: FUROSEMIDE 40 MG TAB PO SCH (09:00)
[2022-06-02] MEDS ORDERED: ATORVASTATIN 10 MG TAB PO SCH (09:00)
[2022-06-02] MEDS ORDERED: ASPIRIN 81 MG CHEW TAB PO SCH (09:00)
[2022-06-02] MEDS ORDERED: POTASSIUM CHLORIDE 20 MEQ TAB CR PO SCH (09:00)
[2022-06-02] MEDS ORDERED: PANTOPRAZOLE SOD 40 MG TABEC PO SCH (09:00)
[2022-06-02] MEDS ORDERED: METOPROLOL SUCCINATE 25 MG TAB XL PO SCH (09:00)
[2022-06-02] MEDS: POTASSIUM CHLORIDE 20 MEQ TAB CR PO SCH ×2 (09:37→16:08)
[2022-06-02] MEDS ORDERED: ACETAMINOPHEN 325 MG TAB PO PRN (09:45)
[2022-06-02 09:51] LABS: BASOPHILS # (AUTO) 0.1 (0.0-0.1); BASOPHILS % 0.7 % (0.0-1.0); EOSINOPHILS # (AUTO) 0.1 (0.0-0.4); HEMATOCRIT 30.2 % (34.2-44.1); HEMOGLOBIN 8.9 g/dL (12.0-16.0); LYMPHOCYTES # (AUTO) 1.8 (1.0-3.2); LYMPHOCYTES % 25.3 % (18.0-39.1); MEAN CORPUSCULAR HEMOGLOBIN 24.9 pg (28-32); MEAN CORPUSCULAR HGB CONC 29.5 g/dL (31-35); MEAN CORPUSCULAR VOLUME 84.4 fL (81-99); MONOCYTES # (AUTO) 0.6 (0.2-0.8); MONOCYTES % 8.5 % (4.4-11.3); NEUTROPHILS # (AUTO) 4.4 (2.1-6.9); NEUTROPHILS % 63.2 % (38.7-80.0); PLATELET COUNT 264 x10e3/uL (140-360); RED BLOOD COUNT 3.58 x10e6/uL (3.6-5.1)
[2022-06-02] MEDS ORDERED: SENNOSIDES 8.6 MG TAB PO SCH (10:00)
[2022-06-02] MEDS ORDERED: DOCUSATE SODIUM 100 MG CAP PO SCH (10:00)
[2022-06-02 10:06] LABS: ANION GAP 15.7 mmol/L (8-16); CALCIUM 8.9 mg/dL (8.4-10.2); CREATININE, SERUM 0.73 mg/dL (0.57-1.11)
[2022-06-02 10:18] LABS: POTASSIUM 2.7 mmol/L (3.5-5.1)
[2022-06-02] MEDS ORDERED: BUMETANIDE1 MG PO (11:43)
[2022-06-02] MEDS ORDERED: POTASSIUM CHLORIDE 20 MEQ TAB CR PO ONE (11:45)
[2022-06-02 12:06] VITALS: BP 128/78
[2022-06-02 14:54] LABS: CREATINE KINASE MB 1.9 ng/mL (0-5.0)
[2022-06-02 16:20] VITALS: BP 106/59
== END 2022-06-02 16:28 | disposition home or self-care (01) ==
LOC: ER 18:03 → ERHOLD 20:11 → MED/SURG 21:51
PROVIDERS: ADMIT Internal Medicine; ATTEND Internal Medicine
DX: I25.10 Atherosclerotic heart disease of native coronary artery without angina pectoris (principal); Z95.5 Presence of coronary angioplasty implant and graft; I50.33 Acute on chronic diastolic (congestive) heart failure; F41.9 Anxiety disorder, unspecified; Z95.818 Presence of other cardiac implants and grafts; I48.91 Unspecified atrial fibrillation; Z79.01 Long term (current) use of anticoagulants; K21.9 Gastro-esophageal reflux disease without esophagitis; G89.4 Chronic pain syndrome; E78.5 Hyperlipidemia, unspecified; Z88.1 Allergy status to other antibiotic agents; Z88.8 Allergy status to other drugs, medicaments and biological substances; Z86.718 Personal history of other venous thrombosis and embolism
CPT/HCPCS: 36415 ×2; 71045; 80048; 80053; 82550 ×2; 82553 ×2; 83735; 83880 ×2; 84132; 84484 ×2; 85025 ×2; 87400; 93005; 93970; 94760; 94799 ×2; 97161; 99284; G0378 ×2; J1940; S0164; U0002

== ENCOUNTER 2024-04-07 05:56 | Emergency (ER) | payer MEDICARE ==
[~2024-04-07] VITALS: Ht 162.6 cm; Wt 67.1 kg
[~2024-04-07 05:56] MED LIST changes: +BENADRYL25 M1 PO; +BUMETANIDE1 MG PO; +COZAAR25 MG PO; +ISOSORBIDE MONO30 MG PO; +LEXAPRO10 MG PO; +LOSARTAN POTASS25 MG PO; +METOLAZONE5 MG PO; +STOOL SOFTENER250 MG
[2024-04-07 06:04] VITALS: TEMP 98.1
[2024-04-07 07:29] VITALS: PULSE 80; RESP 16; O2SAT 98
[2024-04-07] MEDS: DEXAMETHASONE SOD PHOS 10 MG/1 ML VIAL IM ONE (07:42)
[2024-04-07] MEDS: HYDROCODONE/APAP 10MG-325MG TAB PO ONE (07:43)
[2024-04-07] MEDS ORDERED: MEDROL4 M2 PO (07:46)
== END 2024-04-07 08:35 | disposition home or self-care (01) ==
LOC: ER 06:04
DX: M54.41 Lumbago with sciatica, right side (principal); R10.31 Right lower quadrant pain; G89.4 Chronic pain syndrome; R26.2 Difficulty in walking, not elsewhere classified; I10 Essential (primary) hypertension; I50.9 Heart failure, unspecified; I48.91 Unspecified atrial fibrillation; I25.10 Atherosclerotic heart disease of native coronary artery without angina pectoris; E78.5 Hyperlipidemia, unspecified; Z95.810 Presence of automatic (implantable) cardiac defibrillator; Z86.718 Personal history of other venous thrombosis and embolism; Z96.652 Presence of left artificial knee joint
CPT/HCPCS: 99283; J1100

== ENCOUNTER 2024-08-10 16:15 | Emergency (ER) | payer MEDICARE ==
[~2024-08-10] VITALS: Ht 162.6 cm; Wt 67.1 kg
[~2024-08-10 16:15] MED LIST changes: +MEDROL4 M2 PO
[2024-08-10 16:29] VITALS: PULSE 60; RESP 19; TEMP 97.8; O2SAT 98
[2024-08-10 17:11] LABS: BASOPHILS # (AUTO) 0.1 (0.0-0.1); BASOPHILS % 0.7 % (0.0-1.0); EOSINOPHILS # (AUTO) 0.2 (0.0-0.4); HEMATOCRIT 31.1 % (34.2-44.1); HEMOGLOBIN 10.5 g/dL (12.0-16.0); LYMPHOCYTES # (AUTO) 1.7 (1.0-3.2); LYMPHOCYTES % 21.7 % (18.0-39.1); MEAN CORPUSCULAR HEMOGLOBIN 32.2 pg (28-32); MEAN CORPUSCULAR HGB CONC 33.8 g/dL (31-35); MEAN CORPUSCULAR VOLUME 95.4 fL (81-99); MONOCYTES # (AUTO) 0.8 (0.2-0.8); MONOCYTES % 10.4 % (4.4-11.3); NEUTROPHILS # (AUTO) 4.9 (2.1-6.9); NEUTROPHILS % 64.8 % (38.7-80.0); PLATELET COUNT 222 x10e3/uL (140-360); RED BLOOD COUNT 3.26 x10e6/uL (3.6-5.1); RED CELL DISTRIBUTION WIDTH 17.2 % (11.7-14.4); WHITE BLOOD COUNT 7.61 x10e3/uL (4.8-10.8)
[2024-08-10 17:31] LABS: ALBUMIN 3.6 g/dL (3.5-5.0); ALBUMIN/GLOBULIN RATIO 1.3 (0.8-2.0); ANION GAP 16.6 mmol/L (8-16); BILIRUBIN,TOTAL 0.4 mg/dL (0.2-1.2); CALCIUM 8.9 mg/dL (8.4-10.2); CREATININE, SERUM 0.73 mg/dL (0.57-1.11); POTASSIUM 3.6 mmol/L (3.5-5.1); TOTAL PROTEIN 6.3 g/dL (6.5-8.1)
[2024-08-10] MEDS ORDERED: FUROSEMIDE40 MG PO (18:01)
== END 2024-08-10 18:49 | disposition home or self-care (01) ==
LOC: ER 16:19
DX: M79.89 Other specified soft tissue disorders (principal); R60.9 Edema, unspecified; I10 Essential (primary) hypertension; I50.9 Heart failure, unspecified; I48.91 Unspecified atrial fibrillation; I25.10 Atherosclerotic heart disease of native coronary artery without angina pectoris; E78.5 Hyperlipidemia, unspecified; I25.2 Old myocardial infarction; Z95.0 Presence of cardiac pacemaker; Z86.73 Personal history of transient ischemic attack (TIA), and cerebral infarction without residual deficits; Z86.718 Personal history of other venous thrombosis and embolism; Z96.652 Presence of left artificial knee joint
CPT/HCPCS: 36415; 80053; 83880; 85025; 99284

== ENCOUNTER 2024-11-24 09:30 | Outpatient (RCR) | payer MEDICARE ==
[~2024-11-24 09:30] MED LIST changes: +CALCIUM500 MG PO; +DOXYCYCLINE HY100 MG PO; +IRON PO; +LIDOCAINE VISC 2% SOLN 15 ML UDC ONE; +LIDOCAINE/PRILOCAINE 2.5-2.5% KIT ONE
== END 2024-11-26 ==
LOC: WCC 09:30
PROVIDERS: ATTEND Nurse Practitioner Family
DX: I87.312 Chronic venous hypertension (idiopathic) with ulcer of left lower extremity (principal); L97.822 Non-pressure chronic ulcer of other part of left lower leg with fat layer exposed; R60.0 Localized edema
CPT/HCPCS: 87071; 87075; 87186; 87205

== ENCOUNTER 2024-12-15 10:30 | Outpatient (RCR) | payer MEDICARE ==
[~2024-12-15 10:30] MED LIST changes: -LIDOCAINE VISC 2% SOLN 15 ML UDC ONE; -LIDOCAINE/PRILOCAINE 2.5-2.5% KIT ONE
== END 2024-12-27 ==
LOC: WCC 10:30
PROVIDERS: ATTEND Nurse Practitioner Family
DX: I87.312 Chronic venous hypertension (idiopathic) with ulcer of left lower extremity (principal); L97.822 Non-pressure chronic ulcer of other part of left lower leg with fat layer exposed; R60.0 Localized edema; B96.5 Pseudomonas (aeruginosa) (mallei) (pseudomallei) as the cause of diseases classified elsewhere

== ENCOUNTER 2025-01-18 10:30 | Outpatient (RCR) | payer MEDICARE | END 2025-01-26 | LOC: WCC 10:30 | PROVIDERS: ATTEND Plastic Surgery | DX: I87.312 Chronic venous hypertension (idiopathic) with ulcer of left lower extremity (principal); L97.822 Non-pressure chronic ulcer of other part of left lower leg with fat layer exposed; R60.0 Localized edema ==

== ENCOUNTER 2025-02-24 21:09 | Emergency (ER) | payer MEDICARE ==
[~2025-02-24] VITALS: Ht 160 cm; Wt 59.0 kg
[2025-02-24 21:33] VITALS: TEMP 98.2
[2025-02-24 22:39] LABS: BASOPHILS % 1.1 % (0.0-1.0); EOSINOPHILS % 2.2 % (0.0-6.0); LYMPHOCYTES % 20.0 % (18.0-39.1); MONOCYTES % 10.8 % (4.4-11.3); NEUTROPHILS % 65.7 % (38.7-80.0); RED CELL DISTRIBUTION WIDTH 14.5 % (11.7-14.4)
[2025-02-24 22:55] LABS: EST GLOMERULAR FILTRATION RATE 63.0 ML/MIN (>=60)
[2025-02-24 23:48] VITALS: PULSE 83; RESP 19; O2SAT 98
[2025-02-24] MEDS: FUROSEMIDE INJ 10 MG/ML 2 ML VIAL IV ONE (23:55)
== END 2025-02-25 | disposition home or self-care (01) ==
LOC: ER 21:46
DX: M79.605 Pain in left leg (principal); M79.604 Pain in right leg; R60.0 Localized edema; I50.9 Heart failure, unspecified; I10 Essential (primary) hypertension; M54.9 Dorsalgia, unspecified; G89.29 Other chronic pain; I25.2 Old myocardial infarction; Z86.73 Personal history of transient ischemic attack (TIA), and cerebral infarction without residual deficits; Z86.718 Personal history of other venous thrombosis and embolism; Z95.0 Presence of cardiac pacemaker
CPT/HCPCS: 36415; 71045; 80053; 83880; 85025; 93970; 99284; J1938